=== PATIENT | male | born 1935 | race Caucasian/White ===

== ENCOUNTER → 2016-12-30 | Outpatient (CLI) | payer OTHER, MEDICARE ==
[~2016-12-30] MED LIST: ALBU1AER9 INH; CITA20TA9 PO; NRN/300 PO; SNM/25100 PO; TIMO0.2528 OPB; muscle relaxer PO
[2016-12-30 10:10] LABS: BASO % 0.5 %; BASO ABS # 0.03 K/uL (0-0.2); COMPLETE YES; EOS % 4.4 %; HEMATOCRIT 43.2 % (42-52); IG% 0.3 %; LYMPH ABS # 1.65 K/uL (1.2-3.4); MEAN CELL VOLUME 100.5 fL (80-100); MEAN CORPUSCULAR HGB CONC 33.8 g/dl (32-36); MEAN PLATELET VOLUME 9.4 fL (7.4-10.4); MONO % 8.7 %; NEUT % 60.1 %; PLATELET COUNT 134 K/uL (130-400); WHITE BLOOD COUNT 6.34 K/uL (4.8-10.8)
[2016-12-30 10:42] LABS: ALT/SGPT 11 U/L (12-78); AST/SGOT 19 U/L (15-37); BLOOD UREA NITROGEN 10 mg/dl (7-18); CALCIUM 8.9 mg/dl (8.5-10.1); CARBON DIOXIDE 33 mmol/L (21-32); CHLORIDE 106 mmol/L (98-107); CREATININE 0.98 mg/dl (0.60-1.40); GLUCOSE 95 mg/dl (70-99); POTASSIUM 4.4 mmol/L (3.5-5.1); SODIUM 140 mmol/L (136-145)
[2016-12-30 10:52] LABS: ALKALINE PHOSPHATASE 109 U/L (45-117); THYROID STIMULATING HORMONE 0.943 uIu/ml (0.300-4.500)
== END | disposition home or self-care (01) ==
LOC: C.LAB 09:31
PROVIDERS: ATTEND Physician Assistant
DX: R42 Dizziness and giddiness (principal); R51 Headache; S09.90XA Unspecified injury of head, initial encounter; X58.XXXA Exposure to other specified factors, initial encounter

== ENCOUNTER → 2017-01-03 | Outpatient (CLI) | payer OTHER, MEDICARE ==
[~2017-01-03] MED LIST changes: +GADAVIST IV PRN
--- NOTE | 2017-01-03 17:46 | DIAGNOSTIC IMAGING REPORT ---
BRAIN COMBO CLINICAL HISTORY: 81 years-old Male presenting with dizziness, headache, recent fall 8 weeks ago, head trauma, Parkinson's disease. TECHNIQUE: Multisequence, multiplanar MR imaging of the brain was performed before and after the administration of intravenous contrast. IV contrast: 9 mL of Gadavist. COMPARISON: 01/09/2014. FINDINGS: Ventricular and sulcal prominence proportional to the degree of parenchymal volume loss, likely age-related. Periventricular and subcortical white matter T2/FLAIR hyperintensity, similar to prior exam and nonspecific but likely indicative of chronic small vessel ischemic change. 2 foci of T1 hypointensity along the right aspect of the corpus callosum likely old lacunar infarcts, one of which is new from prior. No abnormal enhancement. No mass effect or midline shift. No hemorrhage or acute territorial infarct. No extra-axial fluid collection. Absence of the right lens of the globe. Paranasal sinuses and mastoid air cells grossly clear. IMPRESSION: 1. No acute intracranial abnormality. No abnormal enhancement. 2. Chronic small vessel ischemic change. Old lacunar infarcts, one of which is new from prior. Electronically signed by: Wilbert Dean M.D. 01/03/2017 5:45 PM Dictated Date/Time: 01/03/2017 5:38 PM
== END | disposition home or self-care (01) ==
LOC: C.MRI 16:37
PROVIDERS: ATTEND Physician Assistant
DX: R42 Dizziness and giddiness (principal); R51 Headache; S09.90XA Unspecified injury of head, initial encounter; X58.XXXA Exposure to other specified factors, initial encounter; I67.82 Cerebral ischemia; Z86.73 Personal history of transient ischemic attack (TIA), and cerebral infarction without residual deficits

== ENCOUNTER → 2017-02-06 | Outpatient (CLI) | payer OTHER, MEDICARE ==
[~2017-02-06] MED LIST changes: -GADAVIST IV PRN
== END | disposition home or self-care (01) ==
LOC: C.LABSPEC 17:01
PROVIDERS: ATTEND Podiatrist Foot & Ankle Surgery
DX: L97.509 Non-pressure chronic ulcer of other part of unspecified foot with unspecified severity (principal)

== ENCOUNTER → 2017-12-28 | Outpatient (CLI) | payer OTHER, MEDICARE | END | disposition home or self-care (01) | LOC: C.LAB 06:58 | PROVIDERS: ATTEND Internal Medicine Hematology | DX: J84.10 Pulmonary fibrosis, unspecified (principal) ==

== ENCOUNTER 2021-03-26 12:32 | Inpatient (IN) ==
--- NOTE | 2021-03-26 15:48 | XRay Report ---
XR chest 1V portable HISTORY: 85 years-old Male SOB acute shortness of breath COMPARISON: Chest radiograph 02/26/2016 TECHNIQUE: Portable AP view of the chest FINDINGS: Cardiac silhouette is mildly enlarged. Calcified plaque of the thoracic aorta. Mild bilateral reticul ar nodular densities are new from prior. The lungs are hypoinflated. No pneumothorax, or large pleura l effusion. No lobar airspace consolidation. IMPRESSION: 1. Mild bilateral reticular nodular opacities are suggestive of an infectious or inflammatory pneumon itis. 2. Cardiomegaly with hypoinflation. ACT 112: Negative or not required by law. The above report was generated using voice recognition software. It may contain grammatical, syntax o r spelling errors. Electronically signed by: Albert So M.D. 03/26/2021 3:46 PM
[2021-03-26 16:01] LABS: Basophils # (auto) 0.02 K/uL (0-0.2); Basophils % (auto) 0.2 %; Eosinophils # (auto) 0.28 K/uL (0-0.5); Eosinophils % (auto) 3.3 %; Hematocrit (blood only) 40.3 % (42-52); Hemoglobin 13.6 g/dL (14.0-18.0); Immature Granulocytes # (auto) 0.05 K/uL (0.00-0.02); Immature Granulocytes % (auto) 0.6 %; Mean Corpuscular Hemoglobin 37.1 pg (25-34); Mean Corpuscular Hgb Conc 33.7 g/dL (32-36); Mean Corpuscular Volume 109.8 fL (80-100); Mean Platelet Volume 9.8 fL (7.4-10.4); Monocytes # (auto) 0.86 K/uL (0.11-0.59); Monocytes % (auto) 10.1 %; Neutrophils # (auto) 5.57 K/uL (1.4-6.5); Neutrophils % (auto) 65.8 %; Platelet Count 161 K/uL (130-400); RDW Standard Deviation 55.9 fL (36.4-46.3); Red Blood Count 3.67 M/uL (4.7-6.1); White Blood Count 8.48 K/uL (4.8-10.8)
[2021-03-26 16:20] LABS: Alanine Aminotransferase 7 U/L (12-78); Albumin Level 3.1 gm/dl (3.4-5.0); BUN Creatinine Ratio 13.8 (10-20); Blood Urea Nitrogen 13 mg/dl (7-18); Carbon Dioxide 29 mmol/L (21-32); Chloride 107 mmol/L (98-107); Creatinine Clr Calc Pharmacy 66.2 ml/min; Est GFR (African American) 82.6 ml/min; Est GFR (Non-African American) 71.3 ml/min; Glucose 120 mg/dl (70-99); Sodium 137 mmol/L (136-145)
[2021-03-26 16:22] LABS: Albumin Globulin Ratio 0.7 (0.9-2); Alkaline Phosphatase 80 U/L (45-117); Bilirubin,Total 0.6 mg/dl (0.2-1); Globulin 4.6 gm/dl (2.5-4.0); Total Protein 7.7 gm/dl (6.4-8.2); Troponin I < 0.015 ng/ml (0-0.045)
--- NOTE | 2021-03-26 16:23 | Electrocardiogram Report ---
Test Reason : Blood Pressure : / mmHG Vent. Rate : 074 BPM Atrial Rate : 074 BPM P-R Int : 152 ms QRS Dur : 082 ms QT Int : 414 ms P-R-T Axes : 041 -36 011 degrees QTc Int : 459 ms Poor data quality, interpretation may be adversely affected Normal sinus rhythm Left axis deviation Abnormal ECG When compared with ECG of 26-FEB-2016 07:45, T wave amplitude has decreased in Anterior leads Confirmed by Jovon Horner ([id number]) on 03/26/2021 4:23:21 PM Referred By: Confirmed By:Jovon Horner
[2021-03-26 16:35] LABS: Partial Thromboplastin Time 26.3 Seconds (21.0-31.0); Prothrombin Time 10.4 Seconds (9.0-12.0)
[2021-03-26] MEDS ORDERED: ALBUT/IPRATROP 3MG/0.5MG NEB 3 ML VIAL NEB STA (16:51)
[2021-03-26] MEDS ORDERED: methylPREDNISolone 125 MG/2 ML VIAL IV STA (16:51)
[2021-03-26 16:57] LABS: Potassium 3.6 mmol/L (3.5-5.1)
--- NOTE | 2021-03-26 17:00 | Emergency Department Note ---
Impression & Plan Dyspnea, Cough ED Provider Note INFORMANT: Patient and ED PROVIDER(S): Hans Lake MD CHIEF COMPLAINT: Dyspnea PLAN: Disposition: Admitted Condition: Good Outpatient prescription management: none Referral: None MEDICAL DECISION MAKING: Presented with different breathing and cough. He had flulike symptoms. Requesting isolation. Covid testing was performed. Chest x-ray concerning for pneumonitis. The patient had an ECG performed that showed no acute findings. The CBC showed a mild anemia but no leukocytosis. Remainder of his blood work was unremarkable including troponin and BNP. The patient was treated with a DuoNeb, supplemental oxygen and Solu-Medrol. He seemed to improve with this. He still had conversational dyspnea. The patient was maintaining his oxygen saturation with supplemental oxygen. He underwent CT imaging chest which revealed no evidence of thromboembolic disease. Pneumonitis noted. Consistent with a viral pattern however Covid testing was negative. Given the patient's symptoms further management in the hospital was felt to be operative. Consultation was made with patient hospital service. Patient was evaluated in the ER and admitted. Triage Nursing notes reviewed and agree them. Vital Signs: reviewed and remarkable for no significant abnormalities Differential diagnosis: COVID-19, reactive airway disease, pneumonia, pneumothorax, COPD, CHF, infections, cardiac ischemia, pulmonary embolism, musculoskeletal, gastrointestinal, as well as other pathologies. Diagnostics interpreted by me: EC Lead ECG performe 7 d and revealed Normal sinus rhythym at 74, normal [place], QRS normal. No elevation or depression. No PACs or PVCs. Left axis deviation Cardiac Monitoring: Cardiac monitoring ordered by me: The patient was placed on continuous cardiac monitoring and observed. It revealed a normal sinus rhythm at 87 beats per minute without ectopy or evidence of dysrhythmia. Imaging studies: Chest x-ray concerning for pneumonitis. CT PE study negative no embolism but consistent with a viral pneumonia. I refer you to the EMR for further details. HPI: The patient is a 85 year old male who presents to the Emergency Room with c omplaints of dyspnea. This started 3 days ago and is worsening. Patient notes that he can only get a few words out before he feels very short of breath.. The patient also notes the following associated symptoms, night sweats, cough and fatigue, nausea and vomiting 2 days ago but none yesterday or today. The patient has found no relieving factors. Current pain is rated as 0/10. Patient has been fully vaccinated for Covid including a booster. No sick contacts. Pt denies LOC, headache, fevers, chills, visual changes, neck pain, chest pain, current abdominal pain, back pain, melena, hematochezia, urinary symptoms, numbness, weakness, lymphadenopathy, rash, or other complaints. ROS: See above HPI for pertinent positives & negatives. A total of 10 systems reviewed and were otherwise negative. PAST MEDICAL HISTORY:See Below , Parkinson's PAST SURGICAL HISTORY:See Below, FAMILY HISTORY:See Below SOCIAL HISTORY:See Below, HOME MEDICATIONS:See Below ALLERGIES:See Below VITALS:See Below PHYSICAL EXAMINATION: GENERAL: Awake, alert, dyspneic-appearing, in no distress HENT: Normocephalic, atraumatic. Oropharynx unremarkable. EYES: Normal conjunctiva. Sclera non-icteric. NECK: Inspection normal. Non-tender. Supple. No nuchal rigidity. FROM. No masses. RESPIRATORY: No wheezes. Scattered rales. Increased respiratory effort. CARDIAC: Normal rate. Normal rhythm. No murmurs. No rubs. Extremities warm and well perfused. Pulses equal. No JVD. GI: Soft, non-distended. No tenderness to palpation. No rebound or guarding. No masses. RECTAL: Deferred. MUSCULOSKELETAL: Atraumatic. Chest examination reveals no tenderness. The back is symmetrical on inspection without obvious abnormality. There is no CVA tenderness to palpation. No joint edema. LOWER EXTREMITIES: Calves are equal size bilaterally and non-tender. 1+ edema. Chronic venous discoloration. NEURO: Normal sensorium. No sensory or motor deficits noted. SKIN: No rash or jaundice noted. Hans Lake MD Past Med/Surg History Medical History (Updated 03/26/21 @ 17:00 by Hans Lake MD) Cervical facet joint syndrome Hard of hearing History of anesthesia reaction WAS SENT TO [facility] FOR 3 DAYS TO "RECOVER MY MIND ABILITIES TO HANDLE THINGS" - FOLLOWING BACK SURGERY/[facility] [place] ABOUT 7 YRS AGO History of kidney stones History of skin cancer AND REMOVED Lumbar canal stenosis Parkinson disease Surgical History History of back surgery History of hip replacement RIGHT AND LEFT History of lithotripsy History of total left knee replacement History of total right knee replacement Family History Unknown Cancer Father Prostate cancer Mother No problems noted. Social History Smoking Status: Never smoker Hx Alcohol Use: No Hx Substance Use: No Preferred Language: Slovak Communication Ability: Effective Furniture Painter Required: No Beliefs That Will Affect Care: Adventist Adventist Beliefs: SAMARITAN / METHO DIST marital status: Current Living Situation: Spouse Feels Safe at Home: Yes Assistive Devices: Cane, Denture - Upper and Hearing Aid - Bilateral Allergies Allergies Allergy/AdvReac Type Severity Reaction Status Date / Time bacitracin Allergy Unknown SWELLING Verified 03/26/21 17:08 fentanyl Allergy Unknown PASSED OUT Verified 03/26/21 17:08 neomycin Allergy Unknown SWELLING Verified 03/26/21 17:08 polymyxin B Allergy Unknown SWELLING Verified 03/26/21 17:08 Home Meds Home Medications Medication Instructions Recorded Confirmed gabapentin 300 mg capsule 300 mg PO HS 03/26/21 03/26/21 Previous Rx's Medication Instructions Recorded baclofen 10 mg tablet 10 mg PO BID PRN #60 tab 12/14/20 carbidopa ER 50 mg-levodopa 200 mg 1 tab PO TID #90 tab 01/25/21 tablet,extended release citalopram 10 mg tablet 10 mg PO HS #90 tab 01/26/21 entacapone 200 mg tablet (Comtan) 200 mg PO TID #270 tab 01/26/21 pramipexole 0.125 mg tablet 0.125 mg PO TID #270 tab 01/26/21 Results & Data (ED) Vital Signs Vital Signs - 24 hr 03/26/21 16:05 03/26/21 16:07 03/26/21 16:08 Pulse Rate 77 Pulse Rate [Apical] 78 Pulse Rate from SpO2 Sensor 77 Pulse Rhythm Pulse Rhythm [Apical] Regular Pulse Strength [Apical] Normal Respiratory Rate 36 H 30 H Respiratory Effort / Characteristics Non-Labored Spontaneous Labored Short of Breath Respiratory Depth Shallow Respiratory Pattern Tachypnea Blood Pressure [Right Arm] 140/91 Blood Pressure Mean [Right Arm] 107 Blood Pressure Position [Right Arm] Semi-fowlers Pulse Oximetry 100 100 99 Oxygen Delivery Method Nasal Cannula Nasal Cannula Nasal Cannula Oxygen Flow Rate 3 3 3 03/26/21 16:11 03/26/21 16:30 03/26/21 17:00 Pulse Rate 75 73 72 Pulse Rate [Apical] Pulse Rate from SpO2 Sensor 72 72 Pulse Rhythm Regular Pulse Rhythm [Apical] Pulse Strength [Apical] Respiratory Rate 30 H 27 H 30 H Respiratory Effort / Characteristics Respiratory Depth Respiratory Pattern Blood Pressure [Right Arm] Blood Pressure Mean [Right Arm] Blood Pressure Position [Right Arm] Pulse Oximetry 100 100 100 Oxygen Delivery Method Nasal Cannula Oxygen Flow Rate 3 03/26/21 17:16 03/26/21 17:30 03/26/21 18:00 Pulse Rate 70 77 Pulse Rate [Apical] 73 Pulse Rate from SpO2 Sensor 70 77 Pulse Rhythm Pulse Rhythm [Apical] Pulse Strength [Apical] Respiratory Rate 32 H 23 28 H Respiratory Effort / Characteristics Non-Labored Spontaneous Respiratory Depth Respiratory Pattern Blood Pressure [Right Arm] Blood Pressure Mean [Right Arm] Blood Pressure Position [Right Arm] Pulse Oximetry 100 100 98 Oxygen Delivery Method Nasal Cannula Oxygen Flow Rate 3 03/26/21 18:30 03/26/21 19:00 03/26/21 19:30 Pulse Rate 75 74 89 Pulse Rate [Apical] Pulse Rate from SpO2 Sensor 75 74 90 Pulse Rhythm Pulse Rhythm [Apical] Pulse Strength [Apical] Respiratory Rate 24 26 H 30 H Respiratory Effort / Characteristics Respiratory Depth Respiratory Pattern Blood Pressure [Right Arm] Blood Pressure Mean [Right Arm] Blood Pressure Position [Right Arm] Pulse Oximetry 100 100 99 Oxygen Delivery Method Oxygen Flow Rate 03/26/21 20:00 03/26/21 20:30 03/26/21 21:00 Pulse Rate 86 81 82 Pulse Rate [Apical] Pulse Rate from SpO2 Sensor 86 82 82 Pulse Rhythm Pulse Rhythm [Apical] Pulse Strength [Apical] Respiratory Rate 25 H 23 19 Respiratory Effort / Characteristics Respiratory Depth Respiratory Pattern Blood Pressure [Right Arm] Blood Pressure Mean [Right Arm] Blood Pressure Position [Right Arm] Pulse Oximetry 99 100 98 Oxygen Delivery Method Oxygen Flow Rate 03/26/21 21:30 03/26/21 22:00 03/26/21 22:07 Pulse Rate 80 80 Pulse Rate [Apical] Pulse Rate from SpO2 Sensor 78 80 Pulse Rhythm Pulse Rhythm [Apical] Pulse Strength [Apical] Respiratory Rate 22 23 Respiratory Effort / Characteristics Respiratory Depth Respiratory Pattern Blood Pressure [Right Arm] 166/97 H Blood Pressure Mean [Right Arm] 120 Blood Pressure Position [Right Arm] Pulse Oximetry 99 99 Oxygen Delivery Method Oxygen Flow Rate Laboratory Data Result diagrams: 03/27/21 06:41 03/27/21 06:41 Lab Results 03/26/21 03/26/21 03/26/21 Range/Units 15:30 15:30 16:10 WBC 8.48 (4.8-10.8) K/uL RBC 3.67 L (4.7-6.1) M/uL Hgb 13.6 L (14.0-18.0) g/dL Hct 40.3 L (42-52) % MCV 109.8 H (80-100) fL MCH 37.1 H (25-34) pg MCHC 33.7 (32-36) g/dL RDW Std Deviation 55.9 H (36.4-46.3) fL RDW Coeff of [place] 14.0 (11.5-14.5) % Plt Count 161 (130-400) K/uL MPV 9.8 (7.4-10.4) fL Immature Gran % (Auto) 0.6 % Neut % (Auto) 65.8 % Lymph % (Auto) 20.0 % [place] % (Auto) 10.1 % Eos % (Auto) 3.3 % Baso % (Auto) 0.2 % Neut # (Auto) 5.57 (1.4-6.5) K/uL Lymph # (Auto) 1.70 (1.2-3.4) K/uL [place] # (Auto) 0.86 H (0.11-0.59) K/uL Eos # (Auto) 0.28 (0-0.5) K/uL Baso # (Auto) 0.02 (0-0.2) K/uL Immature Gran # (Auto) 0.05 H (0.00-0.02) K/uL PT 10.4 (9.0-12.0) Seconds INR 1.0 (0.9-1.1) APTT 26.3 (21.0-31.0) Seconds PTT Ratio 1.0 Sodium 137 (136-145) mmol/L Potassium (3.5-5.1) mmol/L Chloride 107 (98-107) mmol/L Carbon Dioxide 29 (21-32) mmol/L Anion Gap 1.0 L (3-11) BUN 13 (7-18) mg/dl Creatinine 0.96 (0.6-1.4) mg/dl Est Cr Clr Drug Dosing 66.2 ml/min Est GFR ( Amer) 82.6 ml/min Est GFR (Non-Af Amer) 71.3 ml/min BUN/Creatinine Ratio 13.8 (10-20) Glucose 120 H (70-99) mg/dl Calcium 9.0 (8.5-10.1) mg/dl Magnesium (1.8-2.4) mg/dl Total Bilirubin 0.6 (0.2-1) mg/dl AST (15-37) U/L ALT 7 L (12-78) U/L Alkaline Phosphatase 80 (45-117) U/L Troponin I < 0.015 (0-0.045) ng/ml NT-Pro-B Natriuret Pep (0-1800) pg/ml Total Protein 7.7 (6.4-8.2) gm/dl Albumin 3.1 L (3.4-5.0) gm/dl Globulin 4.6 H (2.5-4.0) gm/dl Albumin/Globulin Ratio 0.7 L (0.9-2) COVID-19 Eval Order SARS-CoV-2 (PCR) (Negative) 03/26/21 03/26/21 03/26/21 Range/Units 16:10 16:57 16:57 WBC (4.8-10.8) K/uL RBC (4.7-6.1) M/uL Hgb (14.0-18.0) g/dL Hct (42-52) % MCV (80-100) fL MCH (25-34) pg MCHC (32-36) g/dL RDW Std Deviation (36.4-46.3) fL RDW Coeff of [place] (11.5-14.5) % Plt Count (130-400) K/uL MPV (7.4-10.4) fL Immature Gran % (Auto) % Neut % (Auto) % Lymph % (Auto) % [place] % (Auto) % Eos % (Auto) % Baso % (Auto) % Neut # (Auto) (1.4-6.5) K/uL Lymph # (Auto) (1.2-3.4) K/uL [place] # (Auto) (0.11-0.59) K/uL Eos # (Auto) (0-0.5) K/uL Baso # (Auto) (0-0.2) K/uL Immature Gran # (Auto) (0.00-0.02) K/uL PT (9.0-12.0) Seconds INR (0.9-1.1) APTT (21.0-31.0) Seconds PTT Ratio Sodium (136-145) mmol/L Potassium 3.6 (3.5-5.1) mmol/L Chloride (98-107) mmol/L Carbon Dioxide (21-32) mmol/L Anion Gap (3-11) BUN (7-18) mg/dl Creatinine (0.6-1.4) mg/dl Est Cr Clr Drug Dosing ml/min Est GFR ( Amer) ml/min Est GFR (Non-Af Amer) ml/min BUN/Creatinine Ratio (10-20) Glucose (70-99) mg/dl Calcium (8.5-10.1) mg/dl Magnesium 2.2 (1.8-2.4) mg/dl Total Bilirubin (0.2-1) mg/dl AST 11 L (15-37) U/L ALT (12-78) U/L Alkaline Phosphatase (45-117) U/L Troponin I (0-0.045) ng/ml NT-Pro-B Natriuret Pep 358 (0-1800) pg/ml Total Protein (6.4-8.2) gm/dl Albumin (3.4-5.0) gm/dl Globulin (2.5-4.0) gm/dl Albumin/Globulin Ratio (0.9-2) COVID-19 Eval Order Covid19 at [facility] SARS-CoV-2 (PCR) NEGATIVE (Negative) Administered Medications Carbidopa/Levodopa (Carbidopa/Levodopa 50/200mg Ext Rel Tab) 1 tab PO TID CARLEE Stop: 04/26/21 08:59 Last Admin: 03/27/21 09:46 Dose: 1 tab Documented by: [id number] Doxycycline Hyclate (Doxycycline Hyclate 100 Mg Cap) 100 mg PO BID CARLEE Stop: 04/03/21 01:16 Last Admin: 03/27/21 09:46 Dose: 100 mg Documented by: [id number] Admin: 03/27/21 02:10 Dose: 100 mg Documented by: [id number] Enoxaparin Sodium (Enoxaparin Inj 40 Mg/0.4 Ml Syr) 40 mg SQ Q24H CARLEE Stop: 04/26/21 08:59 Last Admin: 03/27/21 09:46 Dose: 40 mg Documented by: [id number] Entacapone (Entacapone 200 Mg Tab) 200 mg PO TID CARLEE Stop: 04/26/21 08:59 Last Admin: 03/27/21 09:47 Dose: 200 mg Documented by: [id number] Guaifenesin (Guaifenesin 600 Mg Tabcr) 600 mg PO Q12 CARLEE Stop: 04/26/21 08:59 Last Admin: 03/27/21 10:09 Dose: 600 mg Documented by: [id number] Sodium Chloride (Nss 1000ml) 1,000 mls @ 80 mls/hr IV .[id number] CARLEE Stop: 03/27/21 13:46 Last Admin: 03/27/21 02:31 Dose: 80 mls/hr Documented by: [id number] Methylprednisolone 40 mg/ (Syringe) 0.64 mls @ 1.5 mls/min IV DAILY CARLEE Stop: 04/26/21 08:59 Last Admin: 03/27/21 09:46 Dose: 1.5 mls/min Documented by: [id number] Ipratropium Nimitz (Ipratropium Nimitz Neb Soln 0.02% 2.5 Ml Vial) 0.5 mg INH Q6R CARLEE Stop: 04/26/21 01:16 Last Admin: 03/27/21 12:47 Dose: 0.5 mg Documented by: [id number] Admin: 03/27/21 07:22 Dose: 0.5 mg Documented by: [id number] Admin: 03/27/21 02:02 Dose: 0.5 mg Documented by: [id number] Levalbuterol HCl (Levalbuterol 1.25mg/0.5ml Neb) 1.25 mg INH Q6R CARLEE Stop: 04/26/21 01:16 Last Admin: 03/27/21 12:48 Dose: 1.25 mg Documented by: [id number] Admin: 03/27/21 07:22 Dose: 1.25 mg Documented by: [id number] Admin: 03/27/21 02:02 Dose: 1.25 mg Documented by: [id number] Pramipexole Dihydrochloride (Pramipexole Dihydrochlo 0.25 Mg Tab) 0.125 mg PO TID CARLEE Stop: 04/26/21 08:59 Last Admin: 03/27/21 09:47 Dose: 0.125 mg Documented by: [id number] Discontinued Medications Albuterol (Albut/Ipratrop 3mg/0.5mg Neb 3 Ml Vial) 3 ml NEB NOW STA Stop: 03/26/21 16:52 Last Admin: 03/26/21 17:14 Dose: 3 ml Documented by: [id number] Ioversol (Optiray 320 125ml) 113 ml IV ONCE ONE Stop: 03/26/21 19:23 Last Admin: 03/26/21 19:23 Dose: 113 ml Documented by: [id number] Methylprednisolone (Methylprednisolone 125 Mg/2 Ml Vial) 125 mg IV NOW STA Stop: 03/26/21 16:52 Last Admin: 03/26/21 17:01 Dose: 125 mg Documented by: [id number] Imaging Data Radiologist's Impression: Chest X-Ray 03/26/21 12:41 XR chest 1V portable HISTORY: 85 years-old Male SOB acute shortness of breath COMPARISON: Chest radiograph 02/26/2016 TECHNIQUE: Portable AP view of the chest FINDINGS: Cardiac silhouette is mildly enlarged. Calcified plaque of the thoracic aorta. Mild bilateral reticular nodular densities are new from prior. The lungs are hypoinflated. No pneumothorax, or large pleural effusion. No lobar airspace consolidation. IMPRESSION: 1. Mild bilateral reticular nodular opacities are suggestive of an infectious or inflammatory pneumonitis. 2. Cardiomegaly with hypoinflation. ACT 112: Negative or not required by law. The above report was generated using voice recognition software. It may contain grammatical, syntax or spelling errors. Electronically signed by: Albert So M.D. 03/26/2021 3:46 PM Discharge Plan Visit Data Chief Complaint: Respiratory Problems Stated Complaint: RESP ISSUES, REF'D BY P ED Provider: Hans Lake Discharge Problem: Dyspnea, Cough Patient Disposition: Admitted As Inpatient Discharge Instructions Interventions: ED Discharge Assessment Last Done: 03/27/21 01:07
[2021-03-26 17:02] LABS: Magnesium 2.2 mg/dl (1.8-2.4)
[2021-03-26] MEDS ORDERED: OPTIRAY 320 125ml IV ONE (19:22)
--- NOTE | 2021-03-26 19:55 | CT Scan Report ---
CT ANGIOGRAPHY OF THE CHEST, PULMONARY EMBOLUS PROTOCOL CLINICAL HISTORY: Dyspnea. Atypical chest pain. Weakness. COMPARISON STUDY: Chest radiograph performed earlier today. TECHNIQUE: Following IV administration of 113 mL of Optiray, helical axial images of the chest were o btained utilizing the pulmonary embolus protocol. Maximal intensity projections and sagittal and cor onal reformats were viewed on an independent 3D workstation. IV contrast was administered without co mplication. Automated exposure control was utilized for the study. A dose lowering technique was ut ilized adhering to the principles of ALARA. CT DOSE: 684.73 mGy.cm FINDINGS: No pulmonary emboli are identified although this exam is significantly compromised by resp iratory motion. The segmental and subsegmental pulmonary arteries are suboptimally assessed on this s tudy. Cardiomegaly is noted. There is no pericardial effusion. Moderate coronary artery calcification is present. Prominent mediastinal and bilateral hilar lymph nodes are noted. These may be reactive. There are several partially calcified lymph nodes. Lungs are suboptimally assessed due to respiratory motion. Moderate groundglass opacities within the lungs are noted. Note is made of a nodular 9 mm op acity within the superior segment of the left lower lobe on image 118 of 238. This favors airspace di sease. No pneumothorax or pleural effusion is noted. Visualized portions of the upper abdomen are unr emarkable. IMPRESSION: 1. No pulmonary emboli identified although exam significantly compromised by respiratory motion and s uboptimal evaluation of the segmental and subsegmental pulmonary arteries. 2. Ground glass opacities throughout the lungs which favor viral pneumonia. 9 mm nodular opacity with in the left lower lobe favors airspace disease however a chest CT in 3 months to ensure resolution is recommended to exclude the possibility of a pulmonary nodule. 3. Cardiomegaly and moderate coronary artery calcification. ACT 112: Negative or not required by law. Electronically signed by: Rodrigo Laguna M.D. 03/26/2021 7:53 PM
--- NOTE | 2021-03-27 00:52 | History and Physical Report ---
DATE OF ADMISSION: 03/26/2021. CHIEF COMPLAINT: Cough and shortness of breath. HISTORY OF PRESENT ILLNESS: This is an 85-year-old male with past medical history significant for chronic interstitial lung disease, seasonal allergic rhinitis, atherosclerosis of both carotid arteries, history of cerebral microvascular disease, diverticulosis of colon, general osteoarthrosis, degenerative disk disease, Parkinson disease, neuropathy, thrombocytopenia, low serum vitamin B12, macrocytic anemia, anxiety, history of kidney stones, history of bilateral hip replacement, history of lumbar laminectomy, who lives at home with his , presents with cough and fever at home. Patient is vaccinated for COVID. He also had a booster shot also. For the last 3-4 days, he is having cough and fever and sweating and some headache and one episode of nausea and because of ongoing symptoms, he came to the ER and since when he came in, he was not hypoxic, but he was tachypneic and with placement of oxygen he says his headache improved. His labs are okay. ER did a CT of the chest shows no PE, but ground glass opacities in the lungs, possible viral pneumonia .Patient also seemed to have low-grade interstitial lung disease. Currently, resting comfortably and hemodynamically stable. Currently, denies any headache. No blurred vision. He had sore throat couple of days ago that has resolved. He says his appetite is okay. He has had lot of chest pain when he came in, the pain was more with deep breath but that is resolved now. Currently, no abdominal pain. He moved his bowels in the morning, which was normal. Normal bladder movements. No swelling in the legs. Ambulates with a walker. ALLERGIES: BACITRACIN, FENTANYL, NEOMYCIN, POLYMYXIN B. PAST MEDICAL HISTORY: As mentioned above. PAST SURGICAL HISTORY: Bilateral knee arthroplasties, colonoscopy, cervical hemilaminectomy, appendectomy, cataract surgery, bilateral hip replacement. MEDICATIONS: The patient is on baclofen 10 mg p.o. b.i.d. p.r.n., carbidopa/levodopa 1 tablet p.o. t.i.d., escitalopram 10 mg p.o. at bedtime, entacapone 200 mg p.o. t.i.d., gabapentin 300 mg p.o. at bedtime, pramipexole 0.5 mg p.o. t.i.d. FAMILY HISTORY: Significant for father had prostate cancer. SOCIAL HISTORY: , no smoking. Alcohol occasional. No drug use. REVIEW OF SYSTEMS: As per HPI. Rest of the review of systems is negative. PHYSICAL EXAMINATION: GENERAL: The patient is old and frail, not in acute distress. VITAL SIGNS: Temperature 37.1, pulse 80, respiratory rate 23, blood pressure 166/97, oxygen 99% on 3 liters. HEENT: Pupils equal, round and reactive to light. Oral mucosa moist. NECK: No JVD, no neck masses. CARDIOVASCULAR: S1 and S2 heard. Regular rate and rhythm. No murmur, no gallop. RESPIRATORY SYSTEM: Normal AP diameter. No accessory muscle use. Mild bibasilar crackles. No wheezing. ABDOMEN: Soft, bowel sounds present, nontender, no distention. CENTRAL NERVOUS SYSTEM: Cranial nerves II-XII grossly intact, nonfocal. EXTREMITIES: No edema, no erythema. LABORATORY DATA: WBC 8.4, hemoglobin 13.6, hematocrit 40.3, platelets 161. PT 10.4, INR 1, APTT 26.3. Sodium 137, potassium 3.6, chloride 107, bicarbonate 29, BUN 13, creatinine 0.9, serum glucose 120, calcium 9, magnesium 2.2, total bilirubin 0.6, AST 11, ALT 7, alkaline phosphatase 80. Troponin I less than 0.015. BNP 355. SARS-CoV-2 PCR negative. CHEST X-RAY: Mild bilateral reticulonodular opacities suggestive of infectious inflammatory pneumonitis. CT of the chest, no PE, but showed extensive ground glass opacities of lungs possible viral pneumonia. A 9 mm nodular opacity in the left lower lobe favors air space disease. We will have chest CT in three months to ensure resolution is recommended to exclude the possibility of pulmonary nodule, cardiomegaly. EKG: Normal sinus rhythm, rate of 74, left axis deviation. ASSESSMENT AND PLAN: This is an 85-year-old male, presents with ongoing respiratory illness. 1. Respiratory illness with cough, fever and soaking sweats. When he came in, he was tachypneic, with oxygen headache and tachypnea improved, currently resting comfortably. CTA of chest round glass opacities, possible viral pneumonia. COVID test is negative and he has completed vaccination with a booster shot. We also will check for RSV and flu. The patient also has underlying interstitial lung disease. We will continue steroids and nebs and p.o. doxycycline and monitor. Monitor the response. two step prior to discharge. May need to follow with Pulmonary.Needs repeat ct chest in 3 months to rule out underlying lung nodule. 2. Parkinson's. Continue his home medications of carbidopa/levodopa and entacapone. 3. Depression: Continue citalopram. 4. Deep venous thrombosis prophylaxis: Lovenox. DISPOSITION: Closely monitor in the med tele. PT/OT prior to discharge. Social service to help with discharge planning. Job ID: [id number] [facility]
[2021-03-27] MEDS ORDERED: ACETAMINOPHEN 325 MG TAB PO PRN (01:17)
[2021-03-27] MEDS ORDERED: SODIUM CHLORIDE 0.9% 1000ML 1,000 ML IV SCH (01:17)
[2021-03-27] MEDS ORDERED: XOPENEX/ATROVENT 1.25mg/0.5MG NEB COMBO NEB SCH (01:17)
[2021-03-27] MEDS ORDERED: ONDANSETRON INJ 2 MG/ML 2 ML VIAL IV PRN (01:17)
[2021-03-27] MEDS ORDERED: NITROGLYCERIN SL 0.4 MG/TAB TAB SL PRN (01:17)
[2021-03-27] MEDS ORDERED: BACLOFEN 10 MG TAB PO PRN (01:17)
[2021-03-27] MEDS: LEVALBUTEROL 1.25MG/0.5ML NEB INH SCH ×4 (02:02→19:58)
[2021-03-27] MEDS: IPRATROPIUM BROMIDE NEB SOLN 0.02% 2.5 ML VIAL INH SCH ×4 (02:02→19:58)
[2021-03-27] MEDS: DOXYCYCLINE HYCLATE 100 MG CAP PO SCH ×3 (02:10→21:13)
[2021-03-27 03:26] LABS: Influenza A virus by PCR Negative (Negative); Influenza B virus by PCR Negative (Negative)
[2021-03-27 03:44] LABS: RSV by PCR Negative (Negative)
--- NOTE | 2021-03-27 07:06 | Hospitalist Progress Note ---
Date of Service March 27, 2021 Assessment & Plan (1) Respiratory failure with hypoxia: (2) Elevated troponin: Plan: This is an 85-year-old male, presents with ongoing respiratory illness. 1. Acute respiratory failure with hypoxia Respiratory illness with cough, fever and soaking sweats. When he came in, he was tachypneic, with oxygen headache and tachypnea improved, currently resting comfortably. He also had significant chest pain before started on oxygen. Currently resting comfortably, using 2 L of nasal cannula. CTA of chest ground glass opacities, possible viral pneumonia. No PE. COVID test is negative and he has completed vaccination with a booster shot. RSV and flu - negative Will obtain Biofire, Legionella, Mycoplasma The patient also has underlying interstitial lung disease. We will continue steroids and nebs and p.o. doxycycline and monitor. Monitor the response. two step prior to discharge. Pulmonary medicine also consulted Needs repeat ct chest in 3 months to rule out underlying lung nodule. 2. Elevated troponin Initial troponin negative in ED Currently chest pain-free, reports chest pain ceased after he got oxygen in ED Repeat troponin this morning elevated Likely demand ischemia secondary to above Echo ordered, and cardiology was consulted 2. Parkinson's. Continue his home medications of carbidopa/levodopa and entacapone. 3. Depression: Continue citalopram. DVT prophylaxis: Lovenox. DISPOSITION: Closely monitor in the med tele. Admission and Anticipated Discharge Date Admission Date: March 27, 2021 Subjective Patient seen in follow-up of shortness of breath, chest pain Currently resting in bed, in no acute distress, on 2 liters of nasal cannula Chest pain has resolved Currently does not feel short of breath No fevers chills, abdominal pain, nausea vomiting Patient does not feel dizzy or lightheaded at this time Review of Systems Review of Systems: All systems reviewed & are unremarkable except as noted in Subjective Physical Exam Physical Exam: GENERAL: elderly frail male, not in acute distress, on 2 L NC HEENT: NC/AT, EOMI, PERRL NECK: No JVD, no neck masses. CARDIOVASCULAR: S1 and S2 heard. Regular rate and rhythm. No murmur, no gallop. RESPIRATORY: No accessory muscle use. Mild bibasilar crackles. No wheezing. Using 2L via NC ABDOMEN: Soft, bowel sounds present, nontender, no distention. NEURO: Alert oriented, answering questions appropriately, no facial asymmetry, speech fluent, moves extremities EXTREMITIES: No edema, no erythema. Results & Data Results & Data ([facility]) Vital Signs (Past 12 Hours) Vital Signs Temp Pulse Pulse Resp BP BP Pulse Ox 03/27/21 04:25 83 24 148/93 H 95 03/27/21 02:25 171/97 H 03/27/21 02:03 85 18 94 03/27/21 01:50 36.4 C L 83 20 138/81 98 03/27/21 01:07 85 16 131/82 92 03/26/21 22:07 166/97 H 03/26/21 22:00 80 23 99 03/26/21 21:30 80 22 99 03/26/21 21:00 82 19 98 03/26/21 20:30 81 23 100 03/26/21 20:00 86 25 H 99 03/26/21 19:30 89 30 H 99 Laboratory Results 03/27/21 03/26/21 03/26/21 Range/Units 02:55 16:57 16:57 WBC (4.8-10.8) K/uL RBC (4.7-6.1) M/uL Hgb (14.0-18.0) g/dL Hct (42-52) % MCV (80-100) fL MCH (25-34) pg MCHC (32-36) g/dL RDW Std Deviation (36.4-46.3) fL RDW Coeff of Clitfon (11.5-14.5) % Plt Count (130-400) K/uL MPV (7.4-10.4) fL Immature Gran % (Auto) % Neut % (Auto) % Lymph % (Auto) % Hale % (Auto) % Eos % (Auto) % Baso % (Auto) % Neut # (Auto) (1.4-6.5) K/uL Lymph # (Auto) (1.2-3.4) K/uL Hale # (Auto) (0.11-0.59) K/uL Eos # (Auto) (0-0.5) K/uL Baso # (Auto) (0-0.2) K/uL Immature Gran # (Auto) (0.00-0.02) K/uL PT (9.0-12.0) Seconds INR (0.9-1.1) APTT (21.0-31.0) Seconds PTT Ratio Sodium (136-145) mmol/L Potassium (3.5-5.1) mmol/L Chloride (98-107) mmol/L Carbon Dioxide (21-32) mmol/L Anion Gap (3-11) BUN (7-18) mg/dl Creatinine (0.6-1.4) mg/dl Est Cr Clr Drug Dosing ml/min Est GFR ( Amer) ml/min Est GFR (Non-Af Amer) ml/min BUN/Creatinine Ratio (10-20) Glucose (70-99) mg/dl Calcium (8.5-10.1) mg/dl Magnesium (1.8-2.4) mg/dl Total Bilirubin (0.2-1) mg/dl AST (15-37) U/L ALT (12-78) U/L Alkaline Phosphatase (45-117) U/L Troponin I (0-0.045) ng/ml NT-Pro-B Natriuret Pep (0-1800) pg/ml Total Protein (6.4-8.2) gm/dl Albumin (3.4-5.0) gm/dl Globulin (2.5-4.0) gm/dl Albumin/Globulin Ratio (0.9-2) COVID-19 Eval Order Covid19 at [facility] SARS-CoV-2 (PCR) NEGATIVE (Negative) Influ A Molecular Assay Negative (Negative) Influ B Molecular Assay Negative (Negative) RSV (Molecular) Negative (Negative) 03/26/21 03/26/21 03/26/21 Range/Units 16:10 16:10 15:30 WBC (4.8-10.8) K/uL RBC (4.7-6.1) M/uL Hgb (14.0-18.0) g/dL Hct (42-52) % MCV (80-100) fL MCH (25-34) pg MCHC (32-36) g/dL RDW Std Deviation (36.4-46.3) fL RDW Coeff of Clifton (11.5-14.5) % Plt Count (130-400) K/uL MPV (7.4-10.4) fL Immature Gran % (Auto) % Neut % (Auto) % Lymph % (Auto) % Hale % (Auto) % Eos % (Auto) % Baso % (Auto) % Neut # (Auto) (1.4-6.5) K/uL Lymph # (Auto) (1.2-3.4) K/uL Hale # (Auto) (0.11-0.59) K/uL Eos # (Auto) (0-0.5) K/uL Baso # (Auto) (0-0.2) K/uL Immature Gran # (Auto) (0.00-0.02) K/uL PT 10.4 (9.0-12.0) Seconds INR 1.0 (0.9-1.1) APTT 26.3 (21.0-31.0) Seconds PTT Ratio 1.0 Sodium 137 (136-145) mmol/L Potassium 3.6 (3.5-5.1) mmol/L Chloride 107 (98-107) mmol/L Carbon Dioxide 29 (21-32) mmol/L Anion Gap 1.0 L (3-11) BUN 13 (7-18) mg/dl Creatinine 0.96 (0.6-1.4) mg/dl Est Cr Clr Drug Dosing 66.2 ml/min Est GFR ( Amer) 82.6 ml/min Est GFR (Non-Af Amer) 71.3 ml/min BUN/Creatinine Ratio 13.8 (10-20) Glucose 120 H (70-99) mg/dl Calcium 9.0 (8.5-10.1) mg/dl Magnesium 2.2 (1.8-2.4) mg/dl Total Bilirubin 0.6 (0.2-1) mg/dl AST 11 L (15-37) U/L ALT 7 L (12-78) U/L Alkaline Phosphatase 80 (45-117) U/L Troponin I < 0.015 (0-0.045) ng/ml NT-Pro-B Natriuret Pep 358 (0-1800) pg/ml Total Protein 7.7 (6.4-8.2) gm/dl Albumin 3.1 L (3.4-5.0) gm/dl Globulin 4.6 H (2.5-4.0) gm/dl Albumin/Globulin Ratio 0.7 L (0.9-2) COVID-19 Eval Order SARS-CoV-2 (PCR) (Negative) Influ A Molecular Assay (Negative) Influ B Molecular Assay (Negative) RSV (Molecular) (Negative) 03/26/21 Range/Units 15:30 WBC 8.48 (4.8-10.8) K/uL RBC 3.67 L (4.7-6.1) M/uL Hgb 13.6 L (14.0-18.0) g/dL Hct 40.3 L (42-52) % MCV 109.8 H (80-100) fL MCH 37.1 H (25-34) pg MCHC 33.7 (32-36) g/dL RDW Std Deviation 55.9 H (36.4-46.3) fL RDW Coeff of Clifton 14.0 (11.5-14.5) % Plt Count 161 (130-400) K/uL MPV 9.8 (7.4-10.4) fL Immature Gran % (Auto) 0.6 % Neut % (Auto) 65.8 % Lymph % (Auto) 20.0 % Hale % (Auto) 10.1 % Eos % (Auto) 3.3 % Baso % (Auto) 0.2 % Neut # (Auto) 5.57 (1.4-6.5) K/uL Lymph # (Auto) 1.70 (1.2-3.4) K/uL Hale # (Auto) 0.86 H (0.11-0.59) K/uL Eos # (Auto) 0.28 (0-0.5) K/uL Baso # (Auto) 0.02 (0-0.2) K/uL Immature Gran # (Auto) 0.05 H (0.00-0.02) K/uL PT (9.0-12.0) Seconds INR (0.9-1.1) APTT (21.0-31.0) Seconds PTT Ratio Sodium (136-145) mmol/L Potassium (3.5-5.1) mmol/L Chloride (98-107) mmol/L Carbon Dioxide (21-32) mmol/L Anion Gap (3-11) BUN (7-18) mg/dl Creatinine (0.6-1.4) mg/dl Est Cr Clr Drug Dosing ml/min Est GFR ( Amer) ml/min Est GFR (Non-Af Amer) ml/min BUN/Creatinine Ratio (10-20) Glucose (70-99) mg/dl Calcium (8.5-10.1) mg/dl Magnesium (1.8-2.4) mg/dl Total Bilirubin (0.2-1) mg/dl AST (15-37) U/L ALT (12-78) U/L Alkaline Phosphatase (45-117) U/L Troponin I (0-0.045) ng/ml NT-Pro-B Natriuret Pep (0-1800) pg/ml Total Protein (6.4-8.2) gm/dl Albumin (3.4-5.0) gm/dl Globulin (2.5-4.0) gm/dl Albumin/Globulin Ratio (0.9-2) COVID-19 Eval Order SARS-CoV-2 (PCR) (Negative) Influ A Molecular Assay (Negative) Influ B Molecular Assay (Negative) RSV (Molecular) (Negative) Medications Administered Current Inpatient Medications Acetaminophen (Acetaminophen 325 Mg Tab) 650 mg PO Q4H PRN PRN Reason: Pain or Fever Stop: 04/26/21 01:16 Baclofen (Baclofen 10 Mg Tab) 10 mg PO BID PRN PRN Reason: pain/spasm Stop: 04/26/21 01:16 Carbidopa/Levodopa (Carbidopa/Levodopa 50/200mg Ext Rel Tab) 1 tab PO TID CARLEE Stop: 04/26/21 08:59 Citalopram Hydrobromide (Citalopram 20 Mg Tab) 10 mg PO HS CARLEE Stop: 04/26/21 20:59 Doxycycline Hyclate (Doxycycline Hyclate 100 Mg Cap) 100 mg PO BID [facility]LEE Stop: 04/03/21 01:16 Last Admin: 03/27/21 02:10 Dose: 100 mg Documented by: Enoxaparin Sodium (Enoxaparin Inj 40 Mg/0.4 Ml Syr) 40 mg SQ Q24H [facility] Stop: 04/26/21 08:59 Entacapone (Entacapone 200 Mg Tab) 200 mg PO TID [facility]LEE Stop: 04/26/21 08:59 Gabapentin (Gabapentin 300 Mg Cap) 300 mg PO HS [facility] Stop: 04/26/21 20:59 Guaifenesin (Guaifenesin 600 Mg Tabcr) 600 mg PO Q12 [facility] Stop: 04/26/21 08:59 Sodium Chloride (Nss 1000ml) 1,000 mls @ 80 mls/hr IV .[id number] [facility] Stop: 03/27/21 13:46 Last Admin: 03/27/21 02:31 Dose: 80 mls/hr Documented by: Methylprednisolone 40 mg/ (Syringe) 0.64 mls @ 1.5 mls/min IV DAILY [facility] Stop: 04/26/21 08:59 Ipratropium [place] (Ipratropium [place] Neb Soln 0.02% 2.5 Ml Vial) 0.5 mg INH Q6R [facility] Stop: 04/26/21 01:16 Last Admin: 03/27/21 02:02 Dose: 0.5 mg Documented by: Levalbuterol HCl (Levalbuterol 1.25mg/0.5ml Neb) 1.25 mg INH Q6R [facility] Stop: 04/26/21 01:16 Last Admin: 03/27/21 02:02 Dose: 1.25 mg Documented by: Nitroglycerin (Nitroglycerin Sl 0.4 Mg/Tab Tab) 0.4 mg SL UD PRN PRN Reason: Chest Pain Stop: 04/26/21 01:16 Ondansetron HCl (Ondansetron Inj 2 Mg/Ml 2 Ml Vial) 4 mg IV Q6H PRN PRN Reason: Nausea Stop: 04/26/21 01:16 Pramipexole Dihydrochloride (Pramipexole Dihydrochlo 0.25 Mg Tab) 0.125 mg PO TID [facility] Stop: 04/26/21 08:59
[2021-03-27 07:45] LABS: BUN Creatinine Ratio 15.6 (10-20); Calcium 8.6 mg/dl (8.5-10.1); Creatinine Clr Calc Pharmacy 71.8 ml/min; Est GFR (African American) 90.1 ml/min; Est GFR (Non-African American) 77.8 ml/min; Magnesium 2.2 mg/dl (1.8-2.4); Potassium 4.3 mmol/L (3.5-5.1)
[2021-03-27 07:51] LABS: Basophils # (auto) 0.01 K/uL (0-0.2); Basophils % (auto) 0.2 %; Hemoglobin 12.2 g/dL (14.0-18.0); Immature Granulocytes # (auto) 0.02 K/uL (0.00-0.02); Immature Granulocytes % (auto) 0.4 %; Lymphocytes # (auto) 0.77 K/uL (1.2-3.4); Lymphocytes % (auto) 16.8 %; Mean Corpuscular Hemoglobin 36.4 pg (25-34); Mean Corpuscular Hgb Conc 33.9 g/dL (32-36); Mean Corpuscular Volume 107.5 fL (80-100); Mean Platelet Volume 10.2 fL (7.4-10.4); Monocytes # (auto) 0.28 K/uL (0.11-0.59); Monocytes % (auto) 6.1 %; Neutrophils # (auto) 3.51 K/uL (1.4-6.5); Neutrophils % (auto) 76.5 %; Platelet Count 139 K/uL (130-400); RDW Coefficient of Variation 13.7 % (11.5-14.5); RDW Standard Deviation 54.3 fL (36.4-46.3); Red Blood Count 3.35 M/uL (4.7-6.1); White Blood Count 4.59 K/uL (4.8-10.8)
[2021-03-27 07:52] LABS: Troponin I 0.758 ng/ml (0-0.045)
[2021-03-27] MEDS ORDERED: methylPREDNISolone 40 MG in SYRINGE 0 ML IV SCH (09:00)
[2021-03-27] MEDS: ENOXAPARIN INJ 40 MG/0.4 ML SYR SQ SCH (09:46)
[2021-03-27] MEDS: CARBIDOPA/LEVODOPA 50/200MG EXT REL TAB PO SCH ×3 (09:46→21:12)
[2021-03-27] MEDS: PRAMIPEXOLE DIHYDROCHLO 0.25 MG TAB PO SCH ×3 (09:47→21:07)
[2021-03-27] MEDS: ENTACAPONE 200 MG TAB PO SCH ×3 (09:47→21:13)
[2021-03-27] MEDS: guaiFENesin 600 MG TABCR PO SCH ×2 (10:09→21:14)
--- NOTE | 2021-03-27 13:53 | Pulmonary Consultation ---
Date of Consultation March 27, 2021 Assessment & Plan (1) Respiratory failure with hypoxia: (2) Dyspnea: (3) Cough: (4) Abnormal CT scan of lung: Impression: 85-year-old male with history of Parkinson's admitted with fevers chills and tachypnea. He was never hypoxemic but his CT scan did show diffuse groundglass opacities. The pattern is concerning for an infectious etiology. Review of his CT scan of the abdomen and pelvis done a while ago did demonstrate some subpleural reticulation and the patient may have some degree of chronic interstitial lung disease. Recommendations: 1. Abnormal CT scan: Patient has 2 processes. He has reticulation in the subpleural areas arguing for some chronic lung disease, most likely pulmonary fibrosis. He also has groundglass opacities in his current presentation, would be most concerned about an acute infectious etiology. Viral illnesses are possible however there is no specific treatment for them so I do not think conducting additional testing is required at this point time. Alternative etiologies including atypical pulmonary edema would be on the list especially given his elevated troponin. We will check a BNP in the morning and procalcitonin now. We will discontinue his Solu-Medrol and transition him to prednisone but I think this can likely be tapered. Intermittent aspiration would also be a potential consideration given his neurological disease. Serological evaluation will be initiated. Agree with cardiology consultation 2. Possible interstitial lung disease: Serological evaluation will be conducted. Plan on tapering to steroids as tolerated. 3. The patient should be assessed for supplemental oxygen prior to discharge. 4. Ultimately the patient will require clinical follow-up in the pulmonary clinic with pulmonary function tests and possible follow-up CT scan. 5. I do not think the patient is a candidate for surgical lung biopsy or bronchoscopy and BAL currently. If he improves, he can be discharged home and follow-up in the pulmonary clinic. The above recommendations and plan were discussed with the patient in detail. Questions were answered to the best of my ability. History of Present Illness Attending Physician: Darrell Shi MD History of Present Illness Asked by hospitalist to assist in evaluation management of this patient admitted with abnormal CT scan and hypoxemic respiratory failure. History is obtained from review the electronic medical record as well as discussion with the patient. Patient is an 85-year-old male with a history of Parkinson's. He does not report a prior history of lung disease but states he was having some dental work done a few weeks ago and his dental provider question whether or not he was on oxygen. He is a lifelong non-smoker. He reports a 3 to 4-day history of cough fever and headaches and presented to the emergency room. He was tachypneic but not hypoxemic and was placed on supplemental oxygen. CT scan showed diffuse groundglass opacities. Covid testing was negative as was influenza and RSV. The patient was initiated on antibiotics and treated empirically with steroids and pulmonary consultation was obtained. Patient reports a cough productive of some whitish phlegm. He is never had hemoptysis. He cannot recall having had PFTs or prior CT scanning of his chest performed previously and has never seen a physical damage appraiser. He is a lifelong non- smoker. He is retired. He worked in the [employer]. He has no significant exposures. No birds at home. He does not report any overt aspir ation symptoms. No family history of lung disease that he is aware of. He does not report chest pain or palpitations or significant lower extremity edema. Allergies Allergy/AdvReac Type Severity Reaction Status Date / Time bacitracin Allergy Unknown SWELLING Verified 03/26/21 17:08 fentanyl Allergy Unknown PASSED OUT Verified 03/26/21 17:08 neomycin Allergy Unknown SWELLING Verified 03/26/21 17:08 polymyxin B Allergy Unknown SWELLING Verified 03/26/21 17:08 Home Medications Medication Instructions Recorded Confirmed Type baclofen 10 mg tablet 10 mg PO BID PRN #60 tab 12/14/20 03/26/21 Rx carbidopa ER 50 mg-levodopa 200 mg 1 tab PO TID #90 tab 01/25/21 03/26/21 Rx tablet,extended release citalopram 10 mg tablet 10 mg PO HS #90 tab 01/26/21 03/26/21 Rx entacapone 200 mg tablet (Comtan) 200 mg PO TID #270 tab 01/26/21 03/26/21 Rx pramipexole 0.125 mg tablet 0.125 mg PO TID #270 tab 01/26/21 03/26/21 Rx gabapentin 300 mg capsule 300 mg PO HS 03/26/21 03/26/21 History Patient History Medical History (Updated 03/27/21 @ 13:53 by Chao Bragg MD) Cervical facet joint syndrome Hard of hearing History of anesthesia reaction WAS SENT TO [facility] FOR 3 DAYS TO "RECOVER MY MIND ABILITIES TO HANDLE THINGS" - FOLLOWING BACK SURGERY/DAFNE KUNZ ABOUT 7 YRS AGO History of kidney stones History of skin cancer AND REMOVED Lumbar canal stenosis Parkinson disease Surgical History History of back surgery History of hip replacement RIGHT AND LEFT History of lithotripsy History of total left knee replacement History of total right knee replacement Family History Unknown Cancer Father Prostate cancer Mother No problems noted. Social History Smoking Status: Never smoker Hx Alcohol Use: No Hx Substance Use: No Preferred Language: Uzbek Communication Ability: Effective Airline Pilot/First Officer Required: No Beliefs That Will Affect Care: Sikh Sikh Beliefs: ADVENTISM / MU-ISM marital status: Current Living Situation: Spouse Feels Safe at Home: Yes Assistive Devices: Cane, Denture - Upper and Hearing Aid - Bilateral Review of Systems Review of Systems: Please refer to admission H&P. No additions or deletions Physical Exam Constitutional: WD/WN, vitals as above Elderly male. He does appear slightly tachypneic with conversation but he states this is much better than yesterday Neck: trachea midline, no thyromegaly Respiratory: normal respiratory effort, lungs clear to auscultation Cardiovascular: RRR, no murmur, no edema Gastrointestinal (Abdomen): normal bowel sounds, soft, nontender, no hepatosplenomegaly Musculoskeletal: Extremities: extremities normal to inspection Skin: no rashes, warm and dry Neurologic: Nonfocal exam Lymphatic: no cervical lymphadenopathy Results & Data Results & Data ([facility]) Vital Signs (Past 12 Hours) Vital Signs Temp Pulse Resp BP Pulse Ox 03/27/21 12:49 87 20 94 03/27/21 11:06 37 C 81 18 107/70 96 03/27/21 08:00 80 22 136/81 96 03/27/21 07:22 79 18 99 03/27/21 04:25 83 24 148/93 H 95 03/27/21 02:25 171/97 H 03/27/21 02:03 85 18 94 03/27/21 01:50 36.4 C L 83 20 138/81 98 Critical Care Results & Data Vital Signs (Past 12 Hours) Vital Signs Temp Pulse Resp BP Pulse Ox 03/27/21 12:49 87 20 94 03/27/21 11:06 37 C 81 18 107/70 96 03/27/21 08:00 80 22 136/81 96 03/27/21 07:22 79 18 99 03/27/21 04:25 83 24 148/93 H 95 03/27/21 02:25 171/97 H 03/27/21 02:03 85 18 94 03/27/21 01:50 36.4 C L 83 20 138/81 98 Lab & Micro Results (Past 24 Hours) RBC 3.35 M/uL (4.7-6.1) L 03/27/21 WBC 4.59 K/uL (4.8-10.8) L 03/27/21 Hgb 12.2 g/dL (14.0-18.0) L 03/27/21 Hct 36.0 % (42-52) L 03/27/21 MCV 107.5 fL (80-100) H 03/27/21 MCH 36.4 pg (25-34) H 03/27/21 MCHC 33.9 g/dL (32-36) 03/27/21 RDW Standard Deviation 54.3 fL (36.4-46.3) H 03/27/21 RDW Coefficient of Variation 13.7 % (11.5-14.5) 03/27/21 Plt Count 139 K/uL (130-400) 03/27/21 MPV 10.2 fL (7.4-10.4) 03/27/21 Neutrophils (%) (Auto) 76.5 % 03/27/21 Lymphocytes (%) (Auto) 16.8 % 03/27/21 Monocytes # (Auto) 0.28 K/uL (0.11-0.59) 03/27/21 Eosinophils # (Auto) 0.00 K/uL (0-0.5) 03/27/21 Immature Granulocyte % (Auto) 0.4 % 03/27/21 Neutrophils # (Auto) 3.51 K/uL (1.4-6.5) 03/27/21 Lymphocytes # (Auto) 0.77 K/uL (1.2-3.4) L 03/27/21 Monocytes # (Auto) 0.28 K/uL (0.11-0.59) 03/27/21 Eosinophils # (Auto) 0.00 K/uL (0-0.5) 03/27/21 Basophils # (Auto) 0.01 K/uL (0-0.2) 03/27/21 Immature Granulocyte # (Auto) 0.02 K/uL (0.00-0.02) 03/27/21 Na 137 mmol/L (136-145) 03/27/21 K 4.3 mmol/L (3.5-5.1) 03/27/21 Cl 106 mmol/L (98-107) 03/27/21 CO2 27 mmol/L (21-32) 03/27/21 Anion Gap 4.0 (3-11) 03/27/21 BUN 14 mg/dl (7-18) 03/27/21 Creatinine 0.88 mg/dl (0.6-1.4) 03/27/21 Estimated GFR ( Amer) 90.1 ml/min 03/27/21 Estimated GFR (Non-Af Amer) 77.8 ml/min 03/27/21 BUN/Creatinine Ratio 15.6 (10-20) 03/27/21 Glu 163 mg/dl (70-99) H 03/27/21 Ca 8.6 mg/dl (8.5-10.1) 03/27/21 Total Bilirubin 0.6 mg/dl (0.2-1) 03/26/21 AST 11 U/L (15-37) L 03/26/21 ALT 7 U/L (12-78) L 03/26/21 Alkaline Phosphatase 80 U/L (45-117) 03/26/21 TP 7.7 gm/dl (6.4-8.2) 03/26/21 Albumin 3.1 gm/dl (3.4-5.0) L 03/26/21 Globulin 4.6 gm/dl (2.5-4.0) H 03/26/21 Albumin/Globulin Ratio 0.7 (0.9-2) L 03/26/21 Mg 2.2 mg/dl (1.8-2.4) 03/27/21 06:41 03/27/21 Calcium Level 8.6 mg/dl (8.5-10.1) 03/27/21 06:41 03/27/21 Prothromb Time International Ratio 1.0 (0.9-1.1) 03/26/21 16:10 03/26/21 Diagnostic Findings (Past 24 Hours) Chest X-Ray 03/26/21 12:41 XR chest 1V portable HISTORY: 85 years-old Male SOB acute shortness of breath COMPARISON: Chest radiograph 02/26/2016 TECHNIQUE: Portable AP view of the chest FINDINGS: Cardiac silhouette is mildly enlarged. Calcified plaque of the thoracic aorta. Mild bilateral reticular nodular densities are new from prior. The lungs are hypoinflated. No pneumothorax, or large pleural effusion. No lobar airspace consolidation. IMPRESSION: 1. Mild bilateral reticular nodular opacities are suggestive of an infectious or inflammatory pneumonitis. 2. Cardiomegaly with hypoinflation. ACT 112: Negative or not required by law. The above report was generated using voice recognition software. It may contain grammatical, syntax or spelling errors. Electronically signed by: Albert So M.D. 03/26/2021 3:46 PM Chest CTA 03/26/21 17:34 CT ANGIOGRAPHY OF THE CHEST, PULMONARY EMBOLUS PROTOCOL CLINICAL HISTORY: Dyspnea. Atypical chest pain. Weakness. COMPARISON STUDY: Chest radiograph performed earlier today. TECHNIQUE: Following IV administration of 113 mL of Optiray, helical axial images of the chest were obtained utilizing the pulmonary embolus protocol. Maximal intensity projections and sagittal and coronal reformats were viewed on an independent 3D workstation. IV contrast was administered without complication. Automated exposure control was utilized for the study. A dose lowering technique was utilized adhering to the principles of ALARA. CT DOSE: 684.73 mGy.cm FINDINGS: No pulmonary emboli are identified although this exam is significantly compromised by respiratory motion. The segmental and subsegmental pulmonary arteries are suboptimally assessed on this study. Cardiomegaly is noted. There is no pericardial effusion. Moderate coronary artery calcification is present. Prominent mediastinal and bilateral hilar lymph nodes are noted. These may be reactive. There are several partially calcified lymph nodes. Lungs are suboptimally assessed due to respiratory motion. Moderate groundglass opacities within the lungs are noted. Note is made of a nodular 9 mm opacity within the superior segment of the left lower lobe on image 118 of 238. This favors airspace disease. No pneumothorax or pleural effusion is noted. Visualized portions of the upper abdomen are unremarkable. IMPRESSION: 1. No pulmonary emboli identified although exam significantly compromised by respiratory motion and suboptimal evaluation of the segmental and subsegmental pulmonary arteries. 2. Ground glass opacities throughout the lungs which favor viral pneumonia. 9 mm nodular opacity within the left lower lobe favors airspace disease however a chest CT in 3 months to ensure resolution is recommended to exclude the po ssibility of a pulmonary nodule. 3. Cardiomegaly and moderate coronary artery calcification. ACT 112: Negative or not required by law. Electronically signed by: Rodrigo Laguna M.D. 03/26/2021 7:53 PM I & O Totals 24 Hours 03/26/21 03/27/21 03/28/21 06:59 06:59 06:59 Output Total 350 / 350 Balance -350 / -350 Cumulative 03/26/21 12:32 thru 03/27/21 06:58 Output Total 350 Balance -350 RT Ventilator Mngmt (Last Documented) Ventilator Ordered Settings Respiratory Rate 20 03/27/21 12:49 Ventilator - PT Measurements Respiratory Rate 20 PG Care Time/CCT Total # of Minutes Spent Total Time Spent with Patient: Total time spent is greater than 50% in coordination of care (as documented) at patient's floor/unit and/or counseling patient: Coding Level of Care Code 24698 Initial Inpt Care Lvl 3 Diagnoses Respiratory failure with hypoxia J96.91 Dyspnea R06.[address] scan of lung R91.8
[2021-03-27] MEDS ORDERED: ASPIRIN CHEW 324 MG PO STA (13:55)
[2021-03-27 14:25] LABS: C Reactive Protein 1.53 mg/dl (0-0.29)
[2021-03-27] MEDS: predniSONE 20 MG TAB PO SCH (15:07)
[2021-03-27 15:47] LABS: Adenovirus PCR Not Detected (NotDetected); Bordetella parapertussis PCR Not Detected (NotDetected); Bordetella pertussis PCR Not Detected (NotDetected); Chlamydia pneumoniae PCR Not Detected (NotDetected); Coronavirus 229E PCR Not Detected (NotDetected); Coronavirus CoV-2 (COVID19)PCR Not Detected (NotDetected); Coronavirus HKU1 PCR Not Detected (NotDetected); Coronavirus NL63 PCR Not Detected (NotDetected); Coronavirus OC43PCR Not Detected (NotDetected); Human Metapneumovirus PCR Not Detected (NotDetected); Influenza A PCR Not Detected (NotDetected); Influenza B PCR Not Detected (NotDetected); Mycoplasma pneumoniae PCR Not Detected (NotDetected); Parainfluenza Virus 1 PCR Not Detected (NotDetected); Parainfluenza Virus 2 PCR Not Detected (NotDetected); Parainfluenza Virus 3 PCR Not Detected (NotDetected); Parainfluenza Virus 4 PCR Not Detected (NotDetected); Respiratory Syncytial VirusPCR Not Detected (NotDetected); Rhinovirus/Enterovirus PCR Not Detected (NotDetected)
[2021-03-27 15:58] LABS: Appearance Urine Clear (Clear); Bilirubin Urine Negative (Negative); Blood Urine Negative (Negative); Color Urine Dark Yellow; Glucose Urine UA Negative (Negative); Ketones Urine Trace (Negative); Leukocyte Esterase Urine Negative (Negative); Nitrite Urine Negative (Negative); Protein Urine Negative (Negative); Specific Gravity Urine 1.021 (1.000-1.030); Urobilinogen Urine Negative (Negative)
[2021-03-27] MEDS: CITALOPRAM 20 MG TAB PO SCH (21:12)
[2021-03-27] MEDS: GABAPENTIN 300 MG CAP PO SCH (21:13)
[2021-03-28] MEDS: LEVALBUTEROL 1.25MG/0.5ML NEB INH SCH ×4 (00:22→19:42)
[2021-03-28] MEDS: IPRATROPIUM BROMIDE NEB SOLN 0.02% 2.5 ML VIAL INH SCH ×4 (00:22→19:42)
[2021-03-28 06:48] LABS: Hematocrit (blood only) 35.9 % (42-52); Mean Corpuscular Hemoglobin 36.4 pg (25-34); Mean Corpuscular Hgb Conc 33.4 g/dL (32-36); Mean Corpuscular Volume 108.8 fL (80-100); Mean Platelet Volume 10.2 fL (7.4-10.4); Platelet Count 149 K/uL (130-400); RDW Coefficient of Variation 13.9 % (11.5-14.5); RDW Standard Deviation 54.8 fL (36.4-46.3); White Blood Count 9.41 K/uL (4.8-10.8)
[2021-03-28 07:20] LABS: BUN Creatinine Ratio 17.4 (10-20); Calcium 8.3 mg/dl (8.5-10.1); Creatinine Clr Calc Pharmacy 67.5 ml/min; Est GFR (African American) 83.7 ml/min; Est GFR (Non-African American) 72.2 ml/min; Magnesium 2.1 mg/dl (1.8-2.4); Potassium 4.3 mmol/L (3.5-5.1)
[2021-03-28 07:24] LABS: Phosphorus 3.1 mg/dl (2.5-4.9)
--- NOTE | 2021-03-28 09:31 | Hospitalist Progress Note ---
Date of Service March 28, 2021 Assessment & Plan (1) Respiratory failure with hypoxia: (2) Elevated troponin: Plan: This is an 85-year-old male, who presents with ongoing respiratory illness. 1. Acute respiratory failure with hypoxia Respiratory illness with cough, fever and soaking sweats. When pt came in, he was tachypneic, with oxygen headache and tachypnea improved, then resting comfortably on 2L. He also had significant chest pain before started on oxygen. Then resting comfortably, using 2 L of nasal cannula. CTA of chest ground glass opacities, possible viral pneumonia. No PE. COVID test is negative and he has completed vaccination with a booster shot. RSV and flu - negative Biofire - negative Legionella, Mycoplasma - pending The patient also has underlying interstitial lung disease. Continue steroids and nebs and p.o. doxycycline and monitor. Monitor the response. 2 step prior to discharge. Pulmonary medicine also consulted - patient may have some degree of chronic interstitial lung disease. Current CT also w/ pattern concerning for an infectious etiology. Viral illnesses are possible. Alternative etiologies including atypical pulmonary edema would be on the list especially given his elevated troponin. BNP and pro calcitonin were negative. Recommend tapering his prednisone over the next 5 days. Intermittent aspiration would also be a potential consideration given his neurological disease as well as potential vocal cord/dysphonia. Await results of his serological evaluation. Serological evaluation will be conducted for poss. ILD. Needs repeat ct chest in 3 months to rule out underlying lung nodule. Follow up in pulmonary clinic. Aspiration - 03/28 -patient had an choking/aspiration episode while in the hospital He was able to cough pieces of food out Reports this is quite frequent for him, on daily basis Will make patient n.p.o. for now, will obtain chest x-ray, will cover him with Zosyn empirically, and will obtain speech eval tomorrow Patient's at the bedside during this episode, and she is in agreement with the plan 2. Elevated troponin Initial troponin negative in ED Currently chest pain-free, reports chest pain ceased after he got oxygen in ED Repeat troponin elevated Likely demand ischemia secondary to above Echo ordered -LV is normal in size. EF 55 to 60%. LV wall motion is normal. RV systolic function is normal. Cardiology was consulted - believe elev. troponin secondary to pulmonary issues/ pneumonia 3. Parkinson's. Continue his home medications of carbidopa/levodopa and entacapone. 4. Depression: Continue citalopram. DVT prophylaxis: Lovenox. DISPOSITION: Closely monitor in the med tele. Admission and Anticipated Discharge Date Admission Date: March 27, 2021 Subjective Patient seen in follow-up of shortness of breath, chest pain I was called to bedside, as patient had a choking episode, eating his dinner Patient's at the bedside Patient is able to bring up pieces of food, beef, carrots Says it happens to him quite frequently Reports that 3 out of 7 times a day when he eats he chokes/aspirates, and cannot catch his breath Patient was made n.p.o., chest x-ray ordered, started Zosyn empirically, and will have speech eval done tomorrow Patient and in agreement with the plan Currently he is otherwise feeling better, still occasionally coughing up small pieces of food Denies any chest pain, abdominal pain, nausea or vomiting He actually does not feel short of breath at this time Review of Systems Review of Systems: All systems reviewed & are unremarkable except as noted in Subjective Physical Exam Physical Exam: GENERAL: elderly frail male, on 2 L NC (currently seems in NAD, however just had a chocking episode) HEENT: NC/AT, EOMI, PERRL NECK: No JVD, no neck masses. CARDIOVASCULAR: S1 and S2 heard. Regular rate and rhythm. No murmur, no gallop. RESPIRATORY: No accessory muscle use. Mild bibasilar crackles, + diffuse mild rhonchi. No wheezing. Using 2L via NC ABDOMEN: Soft, bowel sounds present, nontender, no distention. NEURO: Alert oriented, answering questions appropriately, no facial asymmetry, speech fluent, moves extremities EXTREMITIES: No edema, no erythema. Results & Data Results & Data ([facility]) Vital Signs (Past 12 Hours) Vital Signs Temp Pulse Pulse Resp BP Pulse Ox 03/28/21 07:21 73 18 93 03/28/21 03:44 36.3 C L 84 20 156/83 H 97 03/28/21 00:23 64 20 93 03/27/21 23:00 36.7 C 83 90 20 159/85 H 95 Laboratory Results 03/28/21 03/28/21 03/27/21 Range/Units 06:15 06:15 18:02 WBC 9.41 (4.8-10.8) K/uL RBC 3.30 L (4.7-6.1) M/uL Hgb 12.0 L (14.0-18.0) g/dL Hct 35.9 L (42-52) % MCV 108.8 H (80-100) fL MCH 36.4 H (25-34) pg MCHC 33.4 (32-36) g/dL RDW Std Deviation 54.8 H (36.4-46.3) fL RDW Coeff of Clif[place] 13.9 (11.5-14.5) % Plt Count 149 (130-400) K/uL MPV 10.2 (7.4-10.4) fL ESR (0-20) mm/hr Sodium 136 (136-145) mmol/L Potassium 4.3 (3.5-5.1) mmol/L Chloride 104 (98-107) mmol/L Carbon Dioxide 29 (21-32) mmol/L Anion Gap 3.0 (3-11) BUN 17 (7-18) mg/dl Creatinine 0.95 (0.6-1.4) mg/dl Est Cr Clr Drug Dosing 67.5 ml/min Est GFR ( Amer) 83.7 ml/min Est GFR (Non-Af Amer) 72.2 ml/min BUN/Creatinine Ratio 17.4 (10-20) Glucose 130 H (70-99) mg/dl Calcium 8.3 L (8.5-10.1) mg/dl Phosphorus 3.1 (2.5-4.9) mg/dl Magnesium 2.1 (1.8-2.4) mg/dl Total Creatine Kinase (39-308) U/L Troponin I 0.933 H* (0-0.045) ng/ml C-Reactive Protein (0-0.29) mg/dl NT-Pro-B Natriuret Pep 535 (0-1800) pg/ml Procalcitonin (0-0.5) ng/ml Urine Color Urine Appearance (Clear) Urine pH (4.5-7.5) Ur Specific [place] (1.000-1.030) Urine Protein (Negative) Urine Glucose (UA) (Negative) Urine Ketones (Negative) Urine Blood (Negative) Urine Nitrite (Negative) Urine Bilirubin (Negative) Urine Urobilinogen (Negative) Ur Leukocyte Esterase (Negative) IgE Rheumatoid Factor Cycl Citrul Peptide IgG REGINO Screen Anti-Proteinase 3 Anti-Myeloperoxidase ANCA Adenovirus (PCR) (NotDetected) B. pertussis DNA (PCR) (NotDetected) B.parapertussis DNA PCR (NotDetected) C. pneumoniae DNA (PCR) (NotDetected) Coronavirus OC43 (PCR) (NotDetected) Coronavirus HKU1 (PCR) (NotDetected) Coronavirus 229E (PCR) (NotDetected) COVID-19 Eval Order SARS-CoV-2 (PCR) (NotDetected) Coronavirus NL63 (PCR) (NotDetected) Human Metapneumovir PCR (NotDetected) Influenza Type A (PCR) (NotDetected) Influenza Type B (PCR) (NotDetected) L.pneumophila IgM Ab Mycoplasma pneumon IgG Mycoplasma pneumon IgM M. pneumoniae (PCR) (NotDetected) Parainfluenza 1 (PCR) (NotDetected) Parainfluenza 2 (PCR) (NotDetected) Parainfluenza 3 (PCR) (NotDetected) Parainfluenza 4 (PCR) (NotDetected) RSV (PCR) (NotDetected) Entero/Rhino (PCR) (NotDetected) 03/27/21 03/27/21 03/27/21 Range/Units 15:00 14:00 14:00 WBC (4.8-10.8) K/uL RBC (4.7-6.1) M/uL Hgb (14.0-18.0) g/dL Hct (42-52) % MCV (80-100) fL MCH (25-34) pg MCHC (32-36) g/dL RDW Std Deviation (36.4-46.3) fL RDW Coeff of Clif[place] (11.5-14.5) % Plt Count (130-400) K/uL MPV (7.4-10.4) fL ESR (0-20) mm/hr Sodium (136-145) mmol/L Potassium (3.5-5.1) mmol/L Chloride (98-107) mmol/L Carbon Dioxide (21-32) mmol/L Anion Gap (3-11) BUN (7-18) mg/dl Creatinine (0.6-1.4) mg/dl Est Cr Clr Drug Dosing ml/min Est GFR ( Amer) ml/min Est GFR (Non-Af Amer) ml/min BUN/Creatinine Ratio (10-20) Glucose (70-99) mg/dl Calcium (8.5-10.1) mg/dl Phosphorus (2.5-4.9) mg/dl Magnesium (1.8-2.4) mg/dl Total Creatine Kinase (39-308) U/L Troponin I (0-0.045) ng/ml C-Reactive Protein (0-0.29) mg/dl NT-Pro-B Natriuret Pep (0-1800) pg/ml Procalcitonin (0-0.5) ng/ml Urine Color Dark Yellow Urine Appearance Clear (Clear) Urine pH 6.0 (4.5-7.5) Ur Specific [place] 1.021 (1.000-1.030) Urine Protein Negative (Negative) Urine Glucose (UA) Negative (Negative) Urine Ketones Trace H (Negative) Urine Blood Negative (Negative) Urine Nitrite Negative (Negative) Urine Bilirubin Negative (Negative) Urine Urobilinogen Negative (Negative) Ur Leukocyte Esterase Negative (Negative) IgE Rheumatoid Factor Cycl Citrul Peptide IgG REGINO Screen Anti-Proteinase 3 Anti-Myeloperoxidase ANCA Adenovirus (PCR) Not Detected (NotDetected) B. pertussis DNA (PCR) Not Detected (NotDetected) B.parapertussis DNA PCR Not Detected (NotDetected) C. pneumoniae DNA (PCR) Not Detected (NotDetected) Coronavirus OC43 (PCR) Not Detected (NotDetected) Coronavirus HKU1 (PCR) Not Detected (NotDetected) Coronavirus 229E (PCR) Not Detected (NotDetected) COVID-19 Eval Order [facility]NP at [facility] SARS-CoV-2 (PCR) Not Detected (NotDetected) Coronavirus NL63 (PCR) Not Detected (NotDetected) Human Metapneumovir PCR Not Detected (NotDetected) Influenza Type A (PCR) Not Detected (NotDetected) Influenza Type B (PCR) Not Detected (NotDetected) L.pneumophila IgM Ab Mycoplasma pneumon IgG Mycoplasma pneumon IgM M. pneumoniae (PCR) Not Detected (NotDetected) Parainfluenza 1 (PCR) Not Detected (NotDetected) Parainfluenza 2 (PCR) Not Detected (NotDetected) Parainfluenza 3 (PCR) Not Detected (NotDetected) Parainfluenza 4 (PCR) Not Detected (NotDetected) RSV (PCR) Not Detected (NotDetected) Entero/Rhino (PCR) Not Detected (NotDetected) 03/27/21 03/27/21 03/27/21 Range/Units 13:49 13:49 13:49 WBC (4.8-10.8) K/uL RBC (4.7-6.1) M/uL Hgb (14.0-18.0) g/dL Hct (42-52) % MCV (80-100) fL MCH (25-34) pg MCHC (32-36) g/dL RDW Std Deviation (36.4-46.3) fL RDW Coeff of Clif[place] (11.5-14.5) % Plt Count (130-400) K/uL MPV (7.4-10.4) fL ESR 52 H (0-20) mm/hr Sodium (136-145) mmol/L Potassium (3.5-5.1) mmol/L Chloride (98-107) mmol/L Carbon Dioxide (21-32) mmol/L Anion Gap (3-11) BUN (7-18) mg/dl Creatinine (0.6-1.4) mg/dl Est Cr Clr Drug Dosing ml/min Est GFR ( Amer) ml/min Est GFR (Non-Af Amer) ml/min BUN/Creatinine Ratio (10-20) Glucose (70-99) mg/dl Calcium (8.5-10.1) mg/dl Phosphorus (2.5-4.9) mg/dl Magnesium (1.8-2.4) mg/dl Total Creatine Kinase 105 (39-308) U/L Troponin I (0-0.045) ng/ml C-Reactive Protein 1.53 H (0-0.29) mg/dl NT-Pro-B Natriuret Pep (0-1800) pg/ml Procalcitonin (0-0.5) ng/ml Urine Color Urine Appearance (Clear) Urine pH (4.5-7.5) Ur Specific [place] (1.000-1.030) Urine Protein (Negative) Urine Glucose (UA) (Negative) Urine Ketones (Negative) Urine Blood (Negative) Urine Nitrite (Negative) Urine Bilirubin (Negative) Urine Urobilinogen (Negative) Ur Leukocyte Esterase (Negative) IgE Rheumatoid Factor Pending Cycl Citrul Peptide IgG Pending REGINO Screen Pending Anti-Proteinase 3 Pending Anti-Myeloperoxidase Pending ANCA Pending Adenovirus (PCR) (NotDetected) B. pertussis DNA (PCR) (NotDetected) B.parapertussis DNA PCR (NotDetected) C. pneumoniae DNA (PCR) (NotDetected) Coronavirus OC43 (PCR) (NotDetected) Coronavirus HKU1 (PCR) (NotDetected) Coronavirus 229E (PCR) (NotDetected) COVID-19 Eval Order SARS-CoV-2 (PCR) (NotDetected) Coronavirus NL63 (PCR) (NotDetected) Human Metapneumovir PCR (NotDetected) Influenza Type A (PCR) (NotDetected) Influenza Type B (PCR) (NotDetected) L.pneumophila IgM Ab Mycoplasma pneumon IgG Mycoplasma pneumon IgM M. pneumoniae (PCR) (NotDetected) Parainfluenza 1 (PCR) (NotDetected) Parainfluenza 2 (PCR) (NotDetected) Parainfluenza 3 (PCR) (NotDetected) Parainfluenza 4 (PCR) (NotDetected) RSV (PCR) (NotDetected) Entero/Rhino (PCR) (NotDetected) 03/27/21 03/27/21 03/27/21 Range/Units 13:49 13:49 11:21 WBC (4.8-10.8) K/uL RBC (4.7-6.1) M/uL Hgb (14.0-18.0) g/dL Hct (42-52) % MCV (80-100) fL MCH (25-34) pg MCHC (32-36) g/dL RDW Std Deviation (36.4-46.3) fL RDW Coeff of Clif[place] (11.5-14.5) % Plt Count (130-400) K/uL MPV (7.4-10.4) fL ESR (0-20) mm/hr Sodium (136-145) mmol/L Potassium (3.5-5.1) mmol/L Chloride (98-107) mmol/L Carbon Dioxide (21-32) mmol/L Anion Gap (3-11) BUN (7-18) mg/dl Creatinine (0.6-1.4) mg/dl Est Cr Clr Drug Dosing ml/min Est GFR ( Amer) ml/min Est GFR (Non-Af Amer) ml/min BUN/Creatinine Ratio (10-20) Glucose (70-99) mg/dl Calcium (8.5-10.1) mg/dl Phosphorus (2.5-4.9) mg/dl Magnesium (1.8-2.4) mg/dl Total Creatine Kinase (39-308) U/L Troponin I 1.020 H* (0-0.045) ng/ml C-Reactive Protein (0-0.29) mg/dl NT-Pro-B Natriuret Pep (0-1800) pg/ml Procalcitonin 0.15 (0-0.5) ng/ml Urine Color Urine Appearance (Clear) Urine pH (4.5-7.5) Ur Specific [place] (1.000-1.030) Urine Protein (Negative) Urine Glucose (UA) (Negative) Urine Ketones (Negative) Urine Blood (Negative) Urine Nitrite (Negative) Urine Bilirubin (Negative) Urine Urobilinogen (Negative) Ur Leukocyte Esterase (Negative) IgE Pending Rheumatoid Factor Cycl Citrul Peptide IgG REGINO Screen Anti-Proteinase 3 Anti-Myeloperoxidase ANCA Adenovirus (PCR) (NotDetected) B. pertussis DNA (PCR) (NotDetected) B.parapertussis DNA PCR (NotDetected) C. pneumoniae DNA (PCR) (NotDetected) Coronavirus OC43 (PCR) (NotDetected) Coronavirus HKU1 (PCR) (NotDetected) Coronavirus 229E (PCR) (NotDetected) COVID-19 Eval Order SARS-CoV-2 (PCR) (NotDetected) Coronavirus NL63 (PCR) (NotDetected) Human Metapneumovir PCR (NotDetected) Influenza Type A (PCR) (NotDetected) Influenza Type B (PCR) (NotDetected) L.pneumophila IgM Ab Pending Mycoplasma pneumon IgG Pending Mycoplasma pneumon IgM Pending M. pneumoniae (PCR) (NotDetected) Parainfluenza 1 (PCR) (NotDetected) Parainfluenza 2 (PCR) (NotDetected) Parainfluenza 3 (PCR) (NotDetected) Parainfluenza 4 (PCR) (NotDetected) RSV (PCR) (NotDetected) Entero/Rhino (PCR) (NotDetected)
[2021-03-28] MEDS: predniSONE 20 MG TAB PO SCH (10:05)
[2021-03-28] MEDS: guaiFENesin 600 MG TABCR PO SCH ×2 (10:05→20:37)
[2021-03-28] MEDS: ENTACAPONE 200 MG TAB PO SCH ×3 (10:05→20:36)
[2021-03-28] MEDS: CARBIDOPA/LEVODOPA 50/200MG EXT REL TAB PO SCH ×3 (10:06→20:35)
[2021-03-28] MEDS: PRAMIPEXOLE DIHYDROCHLO 0.25 MG TAB PO SCH ×3 (10:06→20:36)
[2021-03-28] MEDS: DOXYCYCLINE HYCLATE 100 MG CAP PO SCH ×2 (10:06→20:35)
[2021-03-28] MEDS: ENOXAPARIN INJ 40 MG/0.4 ML SYR SQ SCH (10:08)
[2021-03-28] MEDS: ASPIRIN 81 MG ECTAB PO SCH (10:24)
--- NOTE | 2021-03-28 11:57 | Pulmonology Progress Note ---
Date of Service March 28, 2021 Assessment & Plan (1) Respiratory failure with hypoxia: (2) Dyspnea: (3) Cough: (4) Abnormal CT scan of lung: Plan: Impression: 85-year-old male with history of Parkinson's admitted with fevers chills and tachypnea. He was never hypoxemic but his CT scan did show diffuse groundglass opacities. The pattern is concerning for an infectious etiology. Review of his CT scan of the abdomen and pelvis done a while ago did demonstrate some subpleural reticulation and the patient may have some degree of chronic interstitial lung disease. Recommendations: 1. Abnormal CT scan: Patient has 2 processes. He has reticulation in the s ubpleural areas arguing for some chronic lung disease, most likely pulmonary fibrosis. He also has groundglass opacities in his current presentation, would be most concerned about an acute infectious etiology. Viral illnesses are possible however there is no specific treatment for them so I do not think conducting additional testing is required at this point time. Alternative etiologies including atypical pulmonary edema would be on the list especially given his elevated troponin. BNP and pro calcitonin were negative. Recommend tapering his prednisone to off over the next 5 days.. Intermittent aspiration would also be a potential consideration given his neurological disease as well as potential vocal cord/dysphonia. Await results of his serological evaluation. Agree with cardiology consultation 2. Possible interstitial lung disease: Serological evaluation will be conducted. Plan on tapering to steroids as tolerated. 3. The patient should be assessed for supplemental oxygen prior to discharge. Recommend two-step assessment 4. Ultimately the patient will require clinical follow-up in the pulmonary clinic with pulmonary function tests and possible follow-up CT scan. Depending on his PFTs, he may require speech therapy evaluation. I would be happy to see this patient back in the outpatient pulmonary clinic. At this point time pulmonary will sign off. Please contact us if we can be of additional assistance. The above recommendations and plan were discussed with the patient and his in detail in the room. Questions were answered to the best of my ability and the y expressed understanding and are in agreement with the plan as outlined Admission and Anticipated Discharge Date Admission Date: March 27, 2021 Subjective Patient seen and examined. EMR reviewed. The patient states that he feels much better. He is now able to talk without coughing. He is not producing any phlegm. He did not not report any significant shortness of breath. No chest pain or lower extremity edema. Review of Systems Review of Systems: All systems reviewed & are unremarkable except as noted in HPI & below Physical Exam Constitutional: WD/WN, vitals as above Neck: trachea midline, no thyromegaly Respiratory: normal respiratory effort, lungs clear to auscultation Cardiovascular: RRR, no murmur, no edema Gastrointestinal (Abdomen): normal bowel sounds, soft, nontender, no hepatosplenomegaly Musculoskeletal: Extremities: extremities normal to inspection Skin: no rashes, warm and dry Lymphatic: no cervical lymphadenopathy Results & Data Results & Data ([facility]) Vital Signs (Past 12 Hours) Vital Signs Temp Pulse Resp BP Pulse Ox 03/28/21 10:12 36.6 C 82 16 124/72 98 03/28/21 07:21 73 18 93 03/28/21 03:44 36.3 C L 84 20 156/83 H 97 03/28/21 00:23 64 20 93 Laboratory Results 03/28/21 06:15 03/28/21 06:15 ESR 52 Troponin peaked at 1.02 CRP 1.53 Follow-up BMP 535 Procalcitonin 0.15 Diagnostic Findings No new imaging PG Care Time/CCT Total # of Minutes Spent Total Time Spent with Patient: Total time spent is greater than 50% in coordination of care (as documented) at patient's floor/unit and/or counseling patient: Coding Level of Care Code 57337 Subseq Hosp Care Lvl 2 Diagnoses Respiratory failure with hypoxia J96.91 Dyspnea R06.[address] scan of lung R91.8
--- NOTE | 2021-03-28 12:39 | Cardiology Consultation ---
Date of Consultation March 28, 2021 Assessment & Plan (1) Elevated troponin: (2) Respiratory failure with hypoxia: (3) Cough: (4) Viral pneumonia: Patient has been admitted with viral pneumonia. I believe his cardiac troponin elevation is multifactorial including his age, dehydration and hypoxia until he reached the hospital. His echocardiogram is unremarkable and his EKG shows no acute changes. At this time I would recommend conservative management and no additional cardiac testing. I would treat him supportively for his viral pneumonia as suggested by the pulmonary service. We will follow along with you during his hospital stay. History of Present Illness Attending Physician: Darrell Shi MD History of Present Illness This is an 85-year-old very jovial male patient with his at the bedside. He states that before he retired he was with the [employer]. He was in his usual state of health and then developed a cough and fever. He has been admitted with a viral pneumonitis. He is Covid negative. He has been vaccinated and had a booster. He has no significant cardiac history. Upon presentation he was most likely dehydrated with associated fevers. Since a slight elevation in his cardiac troponin which has not significantly increased or decreased. His EKG shows no acute changes. He had a resting echocardiogram this admission which shows normal LV function and no normalities. Allergies Allergy/AdvReac Type Severity Reaction Status Date / Time bacitracin Allergy Unknown SWELLING Verified 03/26/21 17:08 fentanyl Allergy Unknown PASSED OUT Verified 03/26/21 17:08 neomycin Allergy Unknown SWELLING Verified 03/26/21 17:08 polymyxin B Allergy Unknown SWELLING Verified 03/26/21 17:08 Home Medications Medication Instructions Recorded Confirmed Type baclofen 10 mg tablet 10 mg PO BID PRN #60 tab 12/14/20 03/26/21 Rx carbidopa ER 50 mg-levodopa 200 mg 1 tab PO TID #90 tab 01/25/21 03/26/21 Rx tablet,extended release citalopram 10 mg tablet 10 mg PO HS #90 tab 01/26/21 03/26/21 Rx entacapone 200 mg tablet (Comtan) 200 mg PO TID #270 tab 01/26/21 03/26/21 Rx pramipexole 0.125 mg tablet 0.125 mg PO TID #270 tab 01/26/21 03/26/21 Rx gabapentin 300 mg capsule 300 mg PO HS 03/26/21 03/26/21 History Patient History Medical History Cervical facet joint syndrome Hard of hearing History of anesthesia reaction WAS SENT TO [facility] FOR 3 DAYS TO "RECOVER MY MIND ABILITIES TO HANDLE THINGS" - FOLLOWING BACK SURGERY/DAFNE KUNZ ABOUT 7 YRS AGO History of kidney stones History of skin cancer AND REMOVED Lumbar canal stenosis Parkinson disease Surgical History History of back surgery History of hip replacement RIGHT AND LEFT History of lithotripsy History of total left knee replacement History of total right knee replacement Family History Unknown Cancer Father Prostate cancer Mother No problems noted. Social History Smoking Status: Never smoker Hx Alcohol Use: No Hx Substance Use: No Preferred Language: Sinhala Communication Ability: Effective Mold Stacker Required: No Beliefs That Will Affect Care: Congregational Congregational Beliefs: ZOROASTRIANISM / VOODOO marital status: Current Living Situation: Spouse How many Children do You have: 4 Feels Safe at Home: Yes Assistive Devices: Cane and Walker Review of Systems Review of Systems: Review of Systems: See HPI for pertinent positives. All other 10 point review of systems are negative. Physical Exam Physical Exam: General: no acute distress and stated age Head: normocephalic, no masses, lesions, tenderness or abnormalities Eyes: conjunctiva are pink and non-injected, sclera clear Neck: supple, no adenopathy, no bruits, normal jugular venous pulse, no hepatojugular reflux Chest: normal shape and normal respiratory effort Lungs: clear to auscultation and percussion Cardiac Exam: - regular rate & rhythm, no murmurs gallops or rubs - normal S1, normal S2 Pulses: 2(+) throughout Abdomen: abdomen soft, non-tender, no abnormal masses and no hepatosplenomegaly Musculoskeletal: no gait disturbance, no joint inflammation, no deforming arthritis Extremities: no edema and no cyanosis Neuro: grossly normal exam Results & Data ([facility]) Vital Signs (Past 12 Hours) Vital Signs Temp Pulse Resp BP Pulse Ox 03/28/21 10:12 36.6 C 82 16 124/72 98 03/28/21 07:21 73 18 93 03/28/21 03:44 36.3 C L 84 20 156/83 H 97 Laboratory Results Laboratory Results - last 24 hr 03/27/21 03/27/21 03/27/21 11:21 13:49 13:49 WBC RBC Hgb Hct MCV MCH MCHC RDW Std Deviation RDW Coeff of [place] Plt Count MPV ESR Sodium Potassium Chloride Carbon Dioxide Anion Gap BUN Creatinine Est Cr Clr Drug Dosing Est GFR ( Amer) Est GFR (Non-Af Amer) BUN/Creatinine Ratio Glucose Calcium Phosphorus Magnesium Total Creatine Kinase Troponin I 1.020 H* C-Reactive Protein NT-Pro-B Natriuret Pep Procalcitonin 0.15 Urine Color Urine Appearance Urine pH Ur Specific [place] Urine Protein Urine Glucose (UA) Urine Ketones Urine Blood Urine Nitrite Urine Bilirubin Urine Urobilinogen Ur Leukocyte Esterase IgE Pending Rheumatoid Factor Cycl Citrul Peptide IgG REGINO Screen Anti-Proteinase 3 Anti-Myeloperoxidase ANCA Adenovirus (PCR) B. pertussis DNA (PCR) B.parapertussis DNA PCR C. pneumoniae DNA (PCR) Coronavirus OC43 (PCR) Coronavirus HKU1 (PCR) Coronavirus 229E (PCR) COVID-19 Eval Order SARS-CoV-2 (PCR) Coronavirus NL63 (PCR) Human Metapneumovir PCR Influenza Type A (PCR) Influenza Type B (PCR) L.pneumophila IgM Ab Pending Mycoplasma pneumon IgG Pending Mycoplasma pneumon IgM Pending M. pneumoniae (PCR) Parainfluenza 1 (PCR) Parainfluenza 2 (PCR) Parainfluenza 3 (PCR) Parainfluenza 4 (PCR) RSV (PCR) Entero/Rhino (PCR) 03/27/21 03/27/21 03/27/21 13:49 13:49 13:49 WBC RBC Hgb Hct MCV MCH MCHC RDW Std Deviation RDW Coeff of [place] Plt Count MPV ESR 52 H Sodium Potassium Chloride Carbon Dioxide Anion Gap BUN Creatinine Est Cr Clr Drug Dosing Est GFR ( Amer) Est GFR (Non-Af Amer) BUN/Creatinine Ratio Glucose Calcium Phosphorus Magnesium Total Creatine Kinase 105 Troponin I C-Reactive Protein 1.53 H NT-Pro-B Natriuret Pep Procalcitonin Urine Color Urine Appearance Urine pH Ur Specific [place] Urine Protein Urine Glucose (UA) Urine Ketones Urine Blood Urine Nitrite Urine Bilirubin Urine Urobilinogen Ur Leukocyte Esterase IgE Rheumatoid Factor Pending Cycl Citrul Peptide IgG Pending REGINO Screen Pending Anti-Proteinase 3 Pending Anti-Myeloperoxidase Pending ANCA Pending Adenovirus (PCR) B. pertussis DNA (PCR) B.parapertussis DNA PCR C. pneumoniae DNA (PCR) Coronavirus OC43 (PCR) Coronavirus HKU1 (PCR) Coronavirus 229E (PCR) COVID-19 Eval Order SARS-CoV-2 (PCR) Coronavirus NL63 (PCR) Human Metapneumovir PCR Influenza Type A (PCR) Influenza Type B (PCR) L.pneumophila IgM Ab Mycoplasma pneumon IgG Mycoplasma pneumon IgM M. pneumoniae (PCR) Parainfluenza 1 (PCR) Parainfluenza 2 (PCR) Parainfluenza 3 (PCR) Parainfluenza 4 (PCR) RSV (PCR) Entero/Rhino (PCR) 03/27/21 03/27/21 03/27/21 14:00 14:00 15:00 WBC RBC Hgb Hct MCV MCH MCHC RDW Std Deviation RDW Coeff of [place] Plt Count MPV ESR Sodium Potassium Chloride Carbon Dioxide Anion Gap BUN Creatinine Est Cr Clr Drug Dosing Est GFR ( Amer) Est GFR (Non-Af Amer) BUN/Creatinine Ratio Glucose Calcium Phosphorus Magnesium Total Creatine Kinase Troponin I C-Reactive Protein NT-Pro-B Natriuret Pep Procalcitonin Urine Color Dark Yellow Urine Appearance Clear Urine pH 6.0 Ur Specific [place] 1.021 Urine Protein Negative Urine Glucose (UA) Negative Urine Ketones Trace H Urine Blood Negative Urine Nitrite Negative Urine Bilirubin Negative Urine Urobilinogen Negative Ur Leukocyte Esterase Negative IgE Rheumatoid Factor Cycl Citrul Peptide IgG REGINO Screen Anti-Proteinase 3 Anti-Myeloperoxidase ANCA Adenovirus (PCR) Not Detected B. pertussis DNA (PCR) Not Detected B.parapertussis DNA PCR Not Detected C. pneumoniae DNA (PCR) Not Detected Coronavirus OC43 (PCR) Not Detected Coronavirus HKU1 (PCR) Not Detected Coronavirus 229E (PCR) Not Detected COVID-19 Eval Order RESPNP at [facility] SARS-CoV-2 (PCR) Not Detected Coronavirus NL63 (PCR) Not Detected Human Metapneumovir PCR Not Detected Influenza Type A (PCR) Not Detected Influenza Type B (PCR) Not Detected L.pneumophila IgM Ab Mycoplasma pneumon IgG Mycoplasma pneumon IgM M. pneumoniae (PCR) Not Detected Parainfluenza 1 (PCR) Not Detected Parainfluenza 2 (PCR) Not Detected Parainfluenza 3 (PCR) Not Detected Parainfluenza 4 (PCR) Not Detected RSV (PCR) Not Detected Entero/Rhino (PCR) Not Detected 03/27/21 03/28/21 03/28/21 18:02 06:15 06:15 WBC 9.41 RBC 3.30 L Hgb 12.0 L Hct 35.9 L MCV 108.8 H MCH 36.4 H MCHC 33.4 RDW Std Deviation 54.8 H RDW Coeff of [place] 13.9 Plt Count 149 MPV 10.2 ESR Sodium 136 Potassium 4.3 Chloride 104 Carbon Dioxide 29 Anion Gap 3.0 BUN 17 Creatinine 0.95 Est Cr Clr Drug Dosing 67.5 Est GFR ( Amer) 83.7 Est GFR (Non-Af Amer) 72.2 BUN/Creatinine Ratio 17.4 Glucose 130 H Calcium 8.3 L Phosphorus 3.1 Magnesium 2.1 Total Creatine Kinase Troponin I 0.933 H* C-Reactive Protein NT-Pro-B Natriuret Pep 535 Procalcitonin Urine Color Urine Appearance Urine pH Ur Specific [place] Urine Protein Urine Glucose (UA) Urine Ketones Urine Blood Urine Nitrite Urine Bilirubin Urine Urobilinogen Ur Leukocyte Esterase IgE Rheumatoid Factor Cycl Citrul Peptide IgG REGINO Screen Anti-Proteinase 3 Anti-Myeloperoxidase ANCA Adenovirus (PCR) B. pertussis DNA (PCR) B.parapertussis DNA PCR C. pneumoniae DNA (PCR) Coronavirus OC43 (PCR) Coronavirus HKU1 (PCR) Coronavirus 229E (PCR) COVID-19 Eval Order SARS-CoV-2 (PCR) Coronavirus NL63 (PCR) Human Metapneumovir PCR Influenza Type A (PCR) Influenza Type B (PCR) L.pneumophila IgM Ab Mycoplasma pneumon IgG Mycoplasma pneumon IgM M. pneumoniae (PCR) Parainfluenza 1 (PCR) Parainfluenza 2 (PCR) Parainfluenza 3 (PCR) Parainfluenza 4 (PCR) RSV (PCR) Entero/Rhino (PCR) Medications Administered Current Inpatient Medications Acetaminophen (Acetaminophen 325 Mg Tab) 650 mg PO Q4H PRN PRN Reason: Pain or Fever Stop: 04/26/21 01:16 Aspirin (Aspirin 81 Mg Ectab) 81 mg PO QAM [facility] Stop: 04/27/21 08:59 Last Admin: 03/28/21 10:24 Dose: 81 mg Documented by: Baclofen (Baclofen 10 Mg Tab) 10 mg PO BID PRN PRN Reason: pain/spasm Stop: 04/26/21 01:16 Carbidopa/Levodopa (Carbidopa/Levodopa 50/200mg Ext Rel Tab) 1 tab PO TID [facility] Stop: 04/26/21 08:59 Last Admin: 03/28/21 10:06 Dose: 1 tab Documented by: Citalopram Hydrobromide (Citalopram 20 Mg Tab) 10 mg PO HS [facility] Stop: 04/26/21 20:59 Last Admin: 03/27/21 21:12 Dose: 10 mg Documented by: Doxycycline Hyclate (Doxycycline Hyclate 100 Mg Cap) 100 mg PO BID [facility] Stop: 04/03/21 01:16 Last Admin: 03/28/21 10:06 Dose: 100 mg Documented by: Enoxaparin Sodium (Enoxaparin Inj 40 Mg/0.4 Ml Syr) 40 mg SQ Q24H [facility] Stop: 04/26/21 08:59 Last Admin: 03/28/21 10:08 Dose: 40 mg Documented by: Entacapone (Entacapone 200 Mg Tab) 200 mg PO TID [facility] Stop: 04/26/21 08:59 Last Admin: 03/28/21 10:05 Dose: 200 mg Documented by: Gabapentin (Gabapentin 300 Mg Cap) 300 mg PO HS [facility] Stop: 04/26/21 20:59 Last Admin: 03/27/21 21:13 Dose: 300 mg Documented by: Guaifenesin (Guaifenesin 600 Mg Tabcr) 600 mg PO Q12 [facility] Stop: 04/26/21 08:59 Last Admin: 03/28/21 10:05 Dose: 600 mg Documented by: Ipratropium [place] (Ipratropium [place] Neb Soln 0.02% 2.5 Ml Vial) 0.5 mg INH Q6R [facility] Stop: 04/26/21 01:16 Last Admin: 03/28/21 07:20 Dose: 0.5 mg Documented by: Levalbuterol HCl (Levalbuterol 1.25mg/0.5ml Neb) 1.25 mg INH Q6R [facility] Stop: 04/26/21 01:16 Last Admin: 03/28/21 07:20 Dose: 1.25 mg Documented by: Nitroglycerin (Nitroglycerin Sl 0.4 Mg/Tab Tab) 0.4 mg SL UD PRN PRN Reason: Chest Pain Stop: 04/26/21 01:16 Ondansetron HCl (Ondansetron Inj 2 Mg/Ml 2 Ml Vial) 4 mg IV Q6H PRN PRN Reason: Nausea Stop: 04/26/21 01:16 Pramipexole Dihydrochloride (Pramipexole Dihydrochlo 0.25 Mg Tab) 0.125 mg PO TID [facility] Stop: 04/26/21 08:59 Last Admin: 03/28/21 10:06 Dose: 0.125 mg Documented by: Prednisone (Prednisone 20 Mg Tab) 20 mg PO DAILY [facility] Stop: 04/26/21 13:59 Last Admin: 03/28/21 10:05 Dose: 20 mg Documented by:
--- NOTE | 2021-03-28 18:36 | XRay Report ---
XR chest 1V portable CLINICAL HISTORY: Aspiration. COMPARISON STUDY: Chest radiograph and chest CT March 26, 2021. FINDINGS: Lung volumes are mildly diminished. This is unchanged. Cardiomegaly is unchanged. Mild airs pace opacities within the lungs are similar to prior exam. There is no pneumothorax or pleural effusi on. The appearance of the chest is unchanged. IMPRESSION: No change in interstitial thickening and mild bilateral opacities which favor an infectio us process. ACT 112: Negative or not required by law. Electronically signed by: Rodrigo Laguna M.D. 03/28/2021 6:35 PM
[2021-03-28] MEDS ORDERED: PIPERACILL/TAZOBAC CONSULT ACTIVE PRN (19:17)
[2021-03-28] MEDS ORDERED: PIPERACILLIN/TAZOBACTAM 3.375 GM in DEXTROSE 5% 100 ML IV ONE (19:30)
[2021-03-28] MEDS: GABAPENTIN 300 MG CAP PO SCH (20:35)
[2021-03-28] MEDS: CITALOPRAM 20 MG TAB PO SCH (20:37)
[2021-03-29] MEDS: IPRATROPIUM BROMIDE NEB SOLN 0.02% 2.5 ML VIAL INH SCH ×4 (00:28→19:45)
[2021-03-29] MEDS: LEVALBUTEROL 1.25MG/0.5ML NEB INH SCH ×4 (00:28→19:45)
[2021-03-29] MEDS: PIPERACILLIN/TAZOBACTAM 3.375 GM in DEXTROSE 5% 100 ML IV SCH ×3 (02:14→17:23)
[2021-03-29] MEDS: ASPIRIN 81 MG ECTAB PO SCH (08:17)
[2021-03-29] MEDS: ENTACAPONE 200 MG TAB PO SCH ×3 (08:18→21:10)
[2021-03-29] MEDS: DOXYCYCLINE HYCLATE 100 MG CAP PO SCH ×2 (08:18→21:09)
[2021-03-29] MEDS: guaiFENesin 600 MG TABCR PO SCH ×2 (08:18→21:09)
[2021-03-29] MEDS: ENOXAPARIN INJ 40 MG/0.4 ML SYR SQ SCH (08:18)
[2021-03-29] MEDS: CARBIDOPA/LEVODOPA 50/200MG EXT REL TAB PO SCH ×3 (08:18→21:09)
[2021-03-29] MEDS: predniSONE 20 MG TAB PO SCH (08:18)
[2021-03-29] MEDS: PRAMIPEXOLE DIHYDROCHLO 0.25 MG TAB PO SCH ×3 (08:19→21:10)
--- NOTE | 2021-03-29 13:26 | Cardiology Progress Note ---
Date of Service March 29, 2021 Assessment & Plan (1) Elevated troponin: (2) Respiratory failure with hypoxia: (3) Cough: (4) Viral pneumonia: Plan: The patient is slowly improving. He is clinically stable. I would have no additional recommendations at this time. Admission and Anticipated Discharge Date Admission Date: March 26, 2021 Subjective The patient is currently off oxygen and feels improved. Review of Systems Review of Systems: Review of Systems: See HPI for pertinent positives. All other 10 point review of systems are negative. Physical Exam Physical Exam: General: no acute distress and stated age Head: normocephalic, no masses, lesions, tenderness or abnormalities Eyes: conjunctiva are pink and non-injected, sclera clear Neck: supple, no adenopathy, no bruits, normal jugular venous pulse, no hepatojugular reflux Chest: normal shape and normal respiratory effort Lungs: clear to auscultation and percussion Cardiac Exam: - regular rate & rhythm, no murmurs gallops or rubs - normal S1, normal S2 Pulses: 2(+) throughout Abdomen: abdomen soft, non-tender, no abnormal masses and no hepatosplenomegaly Musculoskeletal: no gait disturbance, no joint inflammation, no deforming arthritis Extremities: no edema and no cyanosis Neuro: grossly normal exam Results & Data ([facility]) Vital Signs (Past 12 Hours) Vital Signs Temp Pulse Pulse Resp BP BP Pulse Ox 03/29/21 12:59 71 18 93 03/29/21 11:27 36.7 C 91 H 20 148/77 H 96 03/29/21 08:46 36.4 C L 84 18 148/76 H 98 03/29/21 07:28 83 03/29/21 07:27 71 18 98 03/29/21 04:50 36.5 C 82 18 133/69 97 Medications Administered Current Inpatient Medications Acetaminophen (Acetaminophen 325 Mg Tab) 650 mg PO Q4H PRN PRN Reason: Pain or Fever Stop: 04/26/21 01:16 Aspirin (Aspirin 81 Mg Ectab) 81 mg PO QAM [facility] Stop: 04/27/21 08:59 Last Admin: 03/29/21 08:17 Dose: 81 mg Documented by: Baclofen (Baclofen 10 Mg Tab) 10 mg PO BID PRN PRN Reason: pain/spasm Stop: 04/26/21 01:16 Carbidopa/Levodopa (Carbidopa/Levodopa 50/200mg Ext Rel Tab) 1 tab PO TID [facility] Stop: 04/26/21 08:59 Last Admin: 03/29/21 08:18 Dose: 1 tab Documented by: Citalopram Hydrobromide (Citalopram 20 Mg Tab) 10 mg PO HS [facility] Stop: 04/26/21 20:59 Last Admin: 03/28/21 20:37 Dose: 10 mg Documented by: Doxycycline Hyclate (Doxycycline Hyclate 100 Mg Cap) 100 mg PO BID [facility] Stop: 04/03/21 01:16 Last Admin: 03/29/21 08:18 Dose: 100 mg Documented by: Enoxaparin Sodium (Enoxaparin Inj 40 Mg/0.4 Ml Syr) 40 mg SQ Q24H [facility] Stop: 04/26/21 08:59 Last Admin: 03/29/21 08:18 Dose: 40 mg Documented by: Entacapone (Entacapone 200 Mg Tab) 200 mg PO TID [facility] Stop: 04/26/21 08:59 Last Admin: 03/29/21 08:18 Dose: 200 mg Documented by: Gabapentin (Gabapentin 300 Mg Cap) 300 mg PO HS [facility] Stop: 04/26/21 20:59 Last Admin: 03/28/21 20:35 Dose: 300 mg Documented by: Guaifenesin (Guaifenesin 600 Mg Tabcr) 600 mg PO Q12 [facility] Stop: 04/26/21 08:59 Last Admin: 03/29/21 08:18 Dose: 600 mg Documented by: Piperacillin Sod/Tazobactam (Sod 3.375 gm/ Dextrose) 115 mls @ 28.75 mls/hr IV Q8H [facility]; Protocol Stop: 04/05/21 01:59 Last Admin: 03/29/21 09:50 Dose: 28.8 mls/hr Documented by: Ipratropium [place] (Ipratropium [place] Neb Soln 0.02% 2.5 Ml Vial) 0.5 mg INH Q6R [facility] Stop: 04/26/21 01:16 Last Admin: 03/29/21 12:58 Dose: 0.5 mg Documented by: Levalbuterol HCl (Levalbuterol 1.25mg/0.5ml Neb) 1.25 mg INH Q6R [facility] Stop: 04/26/21 01:16 Last Admin: 03/29/21 12:58 Dose: 1.25 mg Documented by: Miscellaneous Information (Piperacill/Tazobac Consult Active) 1 ea N/A UD PRN PRN Reason: Consult Stop: 04/27/21 19:16 Nitroglycerin (Nitroglycerin Sl 0.4 Mg/Tab Tab) 0.4 mg SL UD PRN PRN Reason: Chest Pain Stop: 04/26/21 01:16 Ondansetron HCl (Ondansetron Inj 2 Mg/Ml 2 Ml Vial) 4 mg IV Q6H PRN PRN Reason: Nausea Stop: 04/26/21 01:16 Pramipexole Dihydrochloride (Pramipexole Dihydrochlo 0.25 Mg Tab) 0.125 mg PO TID [facility] Stop: 04/26/21 08:59 Last Admin: 03/29/21 08:19 Dose: 0.125 mg Documented by: Prednisone (Prednisone 20 Mg Tab) 20 mg PO DAILY [facility] Stop: 04/26/21 13:59 Last Admin: 03/29/21 08:18 Dose: 20 mg Documented by:
--- NOTE | 2021-03-29 13:28 | Hospitalist Progress Note ---
Date of Service March 29, 2021 Assessment & Plan (1) Respiratory failure with hypoxia: (2) Elevated troponin: Plan: This is an 85-year-old male, presents with ongoing respiratory illness. 1. Acute respiratory failure with hypoxia Respiratory illness with cough, fever and soaking sweats. When pt came in, he was tachypneic, with oxygen headache and tachypnea improved, then resting comfortably on 2L. He also had significant chest pain before started on oxygen. Then resting comfortably, using 2 L of nasal cannula. CTA of chest ground glass opacities, possible viral pneumonia. No PE. COVID test is negative and he has completed vaccination with a booster shot. RSV and flu - negative Biofire - negative Legionella, Mycoplasma - pending The patient also has underlying interstitial lung disease. Continue steroids and nebs and p.o. doxycycline and monitor. Monitor the response. 2 step prior to discharge. Pulmonary medicine also consulted - patient may have some degree of chronic interstitial lung disease. Current CT also w/ pattern concerning for an infectious etiology. Viral illnesses are possible. Alternative etiologies including atypical pulmonary edema would be on the list especially given his elevated troponin. BNP and pro calcitonin were negative. Recommend tapering his prednisone over the next 5 days. Intermittent aspiration would also be a potential consideration given his neurological disease as well as potential vocal cord/dysphonia. Await results of his serological evaluation. Serological evaluation will be conducted for poss. ILD. Needs repeat ct chest in 3 months to rule out underlying lung nodule. Follow up in pulmonary clinic. Aspiration - 03/28 -patient had an choking/aspiration episode while in the hospital He was able to cough pieces of food out Reports this is quite frequent for him, on daily basis Will make patient n.p.o. for now obtained chest x-ray, cover with Michellesyn empirically Speech eval - plan for video swallow study this PM (03/29) 2. Elevated troponin Initial troponin negative in ED Currently chest pain-free, reports chest pain ceased after he got oxygen in ED Repeat troponin elevated Likely demand ischemia secondary to above Echo ordered -LV is normal in size. EF 55 to 60%. LV wall motion is normal. RV systolic function is normal. Cardiology was consulted - believe elev. troponin secondary to pulmonary issues/ pneumonia 2. Parkinson's. Continue his home medications of carbidopa/levodopa and entacapone. 3. Depression: Continue citalopram. DVT prophylaxis: Lovenox. DISPOSITION: Closely monitor in the [employer] tele. Admission and Anticipated Discharge Date Admission Date: March 26, 2021 Subjective Patient seen in follow-up of shortness of breath, chest pain Yesterday patient had a choking episode Currently patient is lying in bed, in no acute distress, he is actually on room air Denies any chest pain, abdominal pain, nausea or vomiting He does not feel much short of breath Asked me to update his daughter, who is his POA, Megan (she is RN as well), her phone number is We will have Megan's phone number added to the computer. Plan for video swallow study this afternoon. Review of Systems Review of Systems: All systems reviewed & are unremarkable except as noted in Subjective Physical Exam Physical Exam: GENERAL: elderly frail male, not in acute distress, on RA HEENT: NC/AT, EOMI, PERRL NECK: No JVD, no neck masses. CARDIOVASCULAR: S1 and S2 heard. Regular rate and rhythm. No murmur, no gallop. RESPIRATORY: No accessory muscle use. Mild rhonchi, no wheezing ABDOMEN: Soft, bowel sounds present, nontender, no distention. NEURO: Alert oriented, answering questions appropriately, no facial asymmetry, speech fluent, moves extremities EXTREMITIES: No edema, no erythema. Results & Data Results & Data ([facility]) Vital Signs (Past 12 Hours) Vital Signs Temp Pulse Pulse Resp BP BP Pulse Ox 03/29/21 12:59 71 18 93 03/29/21 11:27 36.7 C 91 H 20 148/77 H 96 03/29/21 08:46 36.4 C L 84 18 148/76 H 98 03/29/21 07:28 83 03/29/21 07:27 71 18 98 03/29/21 04:50 36.5 C 82 18 133/69 97 Medications Administered Current Inpatient Medications Acetaminophen (Acetaminophen 325 Mg Tab) 650 mg PO Q4H PRN PRN Reason: Pain or Fever Stop: 04/26/21 01:16 Aspirin (Aspirin 81 Mg Ectab) [facility] [place] Stop: 04/27/21 08:59 Last Admin: 03/29/21 08:17 Dose: 81 mg Documented by: Baclofen (Baclofen 10 Mg Tab) 10 mg PO BID PRN PRN Reason: pain/spasm Stop: 04/26/21 01:16 Carbidopa/Levodopa (Carbidopa/Levodopa 50/200mg Ext Rel Tab) 1 tab PO TID [facility] Stop: 04/26/21 08:59 Last Admin: 03/29/21 08:18 Dose: 1 tab Documented by: Citalopram Hydrobromide (Citalopram 20 Mg Tab) 10 mg PO HS [facility] Stop: 04/26/21 20:59 Last Admin: 03/28/21 20:37 Dose: 10 mg Documented by: Doxycycline Hyclate (Doxycycline Hyclate 100 Mg Cap) 100 mg PO BID [facility] Stop: 04/03/21 01:16 Last Admin: 03/29/21 08:18 Dose: 100 mg Documented by: Enoxaparin Sodium (Enoxaparin Inj 40 Mg/0.4 Ml Syr) 40 mg SQ Q24H [facility] Stop: 04/26/21 08:59 Last Admin: 03/29/21 08:18 Dose: 40 mg Documented by: Entacapone (Entacapone 200 Mg Tab) 200 mg PO TID [facility] Stop: 04/26/21 08:59 Last Admin: 03/29/21 08:18 Dose: 200 mg Documented by: Gabapentin (Gabapentin 300 Mg Cap) 300 mg PO HS [facility] Stop: 04/26/21 20:59 Last Admin: 03/28/21 20:35 Dose: 300 mg Documented by: Guaifenesin (Guaifenesin 600 Mg Tabcr) 600 mg PO Q12 [facility] Stop: 04/26/21 08:59 Last Admin: 03/29/21 08:18 Dose: 600 mg Documented by: Piperacillin Sod/Tazobactam (Sod 3.375 gm/ Dextrose) 115 mls @ 28.75 mls/hr IV Q8H [facility]; Protocol Stop: 04/05/21 01:59 Last Admin: 03/29/21 09:50 Dose: 28.8 mls/hr Documented by: Ipratropium [place] (Ipratropium [place] Neb Soln 0.02% 2.5 Ml Vial) 0.5 mg INH Q6R [facility] Stop: 04/26/21 01:16 Last Admin: 03/29/21 12:58 Dose: 0.5 mg Documented by: Levalbuterol HCl (Levalbuterol 1.25mg/0.5ml Neb) 1.25 mg INH Q6R [facility] Stop: 04/26/21 01:16 Last Admin: 03/29/21 12:58 Dose: 1.25 mg Documented by: Miscellaneous Information (Piperacill/Tazobac Consult Active) 1 ea N/A UD PRN PRN Reason: Consult Stop: 04/27/21 19:16 Nitroglycerin (Nitroglycerin Sl 0.4 Mg/Tab Tab) 0.4 mg SL UD PRN PRN Reason: Chest Pain Stop: 04/26/21 01:16 Ondansetron HCl (Ondansetron Inj 2 Mg/Ml 2 Ml Vial) 4 mg IV Q6H PRN PRN Reason: Nausea Stop: 04/26/21 01:16 Pramipexole Dihydrochloride (Pramipexole Dihydrochlo 0.25 Mg Tab) 0.125 mg PO TID [facility] Stop: 04/26/21 08:59 Last Admin: 03/29/21 08:19 Dose: 0.125 mg Documented by: Prednisone (Prednisone 20 Mg Tab) 20 mg PO DAILY [facility] Stop: 04/26/21 13:59 Last Admin: 03/29/21 08:18 Dose: 20 mg Documented by:
[2021-03-29 14:03] LABS: Hematocrit (blood only) 36.4 % (42-52); Mean Corpuscular Hemoglobin 36.1 pg (25-34); Mean Corpuscular Volume 109.6 fL (80-100); Platelet Count 138 K/uL (130-400); RDW Standard Deviation 56.8 fL (36.4-46.3); Red Blood Count 3.32 M/uL (4.7-6.1); White Blood Count 7.32 K/uL (4.8-10.8)
[2021-03-29 14:23] LABS: BUN Creatinine Ratio 17.9 (10-20); Calcium 8.5 mg/dl (8.5-10.1); Est GFR (African American) 79.6 ml/min; Est GFR (Non-African American) 68.7 ml/min; Potassium 3.7 mmol/L (3.5-5.1)
--- NOTE | 2021-03-29 15:47 | Fluoroscopy Report ---
MODIFIED BARIUM SWALLOW CLINICAL HISTORY: r/o aspiration COMPARISON STUDY: None. FLUOROSCOPY TIME: 2 minutes. TECHNIQUE: A modified barium swallow was performed in conjunction with Speech Pathology. The patient ingested varying consistencies of barium containing material. Video fluoroscopy was performed. FINDINGS: Swallowing mechanism was intact. No tracheal aspiration was identified. Minimal residuals w ere noted with several consistencies. Epiglottic inversion was normal. Laryngeal elevation was normal . IMPRESSION: 1. No tracheal aspiration identified. Intact swallowing mechanism. 2. Full recommendations by speech pathology to follow. ACT 112: Negative or not required by law. Electronically signed by: Rodrigo Laguna M.D. 03/29/2021 3:46 PM
--- NOTE | 2021-03-29 16:08 | Electrocardiogram Report ---
Test Reason : Blood Pressure : / mmHG Vent. Rate : 085 BPM Atrial Rate : 085 BPM P-R Int : 180 ms QRS Dur : 088 ms QT Int : 396 ms P-R-T Axes : 044 -46 013 degrees QTc Int : 471 ms Normal sinus rhythm Left anterior fascicular block Abnormal ECG When compared with ECG of 26-MAR-2021 15:24, No significant change was found Confirmed by Bharath Carr ([id number]) on 03/29/2021 4:07:51 PM Referred By: Ольга Mitchell Confirmed By:Bharath Carr
[2021-03-29] MEDS: CITALOPRAM 20 MG TAB PO SCH (21:08)
[2021-03-29] MEDS: GABAPENTIN 300 MG CAP PO SCH (21:09)
[2021-03-30] MEDS: IPRATROPIUM BROMIDE NEB SOLN 0.02% 2.5 ML VIAL INH SCH ×3 (00:19→13:37)
[2021-03-30] MEDS: LEVALBUTEROL 1.25MG/0.5ML NEB INH SCH ×3 (00:20→13:37)
[2021-03-30] MEDS: PIPERACILLIN/TAZOBACTAM 3.375 GM in DEXTROSE 5% 100 ML IV SCH ×2 (02:12→10:47)
[2021-03-30 07:24] LABS: Hematocrit (blood only) 35.6 % (42-52); Hemoglobin 11.7 g/dL (14.0-18.0); Mean Corpuscular Hemoglobin 36.3 pg (25-34); Mean Corpuscular Hgb Conc 32.9 g/dL (32-36); Mean Corpuscular Volume 110.6 fL (80-100); Mean Platelet Volume 9.3 fL (7.4-10.4); Platelet Count 127 K/uL (130-400); Red Blood Count 3.22 M/uL (4.7-6.1); White Blood Count 5.93 K/uL (4.8-10.8)
[2021-03-30 07:52] LABS: Calcium 8.6 mg/dl (8.5-10.1); Creatinine Clr Calc Pharmacy 62.1 ml/min; Est GFR (African American) 75.9 ml/min; Est GFR (Non-African American) 65.5 ml/min; Magnesium 2.1 mg/dl (1.8-2.4); Potassium 4.1 mmol/L (3.5-5.1)
[2021-03-30 07:53] LABS: Phosphorus 3.4 mg/dl (2.5-4.9)
[2021-03-30] MEDS: PRAMIPEXOLE DIHYDROCHLO 0.25 MG TAB PO SCH ×2 (08:34→15:14)
[2021-03-30] MEDS: ENOXAPARIN INJ 40 MG/0.4 ML SYR SQ SCH (08:35)
[2021-03-30] MEDS: DOXYCYCLINE HYCLATE 100 MG CAP PO SCH (08:35)
[2021-03-30] MEDS: predniSONE 20 MG TAB PO SCH (08:35)
[2021-03-30] MEDS: ENTACAPONE 200 MG TAB PO SCH ×2 (08:35→15:14)
[2021-03-30] MEDS: ASPIRIN 81 MG ECTAB PO SCH (08:35)
[2021-03-30] MEDS: CARBIDOPA/LEVODOPA 50/200MG EXT REL TAB PO SCH ×2 (08:35→15:15)
[2021-03-30] MEDS: guaiFENesin 600 MG TABCR PO SCH (08:35)
--- NOTE | 2021-03-30 11:00 | Hospitalist Progress Note ---
Date of Service March 30, 2021 Assessment & Plan (1) Respiratory failure with hypoxia: (2) Elevated troponin: Plan: This is an 85-year-old male, presents with ongoing respiratory illness. 1. Acute respiratory failure with hypoxia Respiratory illness with cough, fever and soaking sweats. When pt came in, he was tachypneic, with oxygen headache and tachypnea improved, then resting comfortably on 2L. He also had significant chest pain before started on oxygen. Then resting comfortably, using 2 L of nasal cannula. CTA of chest ground glass opacities, possible viral pneumonia. No PE. COVID test is negative and he has completed vaccination with a booster shot. RSV and flu - negative Biofire - negative Legionella, Mycoplasma - pending The patient also has underlying interstitial lung disease. Continue steroids and nebs and p.o. doxycycline and monitor. Monitor the response. 2 step prior to discharge. Pulmonary medicine also consulted - patient may have some degree of chronic interstitial lung disease. Current CT also w/ pattern concerning for an infectious etiology. Viral illnesses are possible. Alternative etiologies including atypical pulmonary edema would be on the list especially given his elevated troponin. BNP and pro calcitonin were negative. Recommend tapering his prednisone over the next 5 days. Intermittent aspiration would also be a potential consideration given his neurological disease as well as potential vocal cord/dysphonia. Await results of his serological evaluation. Serological evaluation will be conducted for poss. ILD. Needs repeat ct chest in 3 months to rule out underlying lung nodule. Follow up in pulmonary clinic. 2 step study obtained, and also discussed with speech therapist. Will need co ntinuous 2 L with ambulation or eating Aspiration - 03/28 -patient had an choking/aspiration episode while in the hospital He was able to cough pieces of food out Reports this is quite frequent for him, on daily basis Will make patient n.p.o. for now obtained chest x-ray, cover with Zosyn empirically Speech eval - Video swallow study (03/29) -no evidence of bolus or tension in the esophagus, complete clearance, esophageal coating Recommendations, aspiration precautions in the discharge packet 2. Elevated troponin Initial troponin negative in ED Currently chest pain-free, reports chest pain ceased after he got oxygen in ED Repeat troponin elevated Likely demand ischemia secondary to above Echo ordered -LV is normal in size. EF 55 to 60%. LV wall motion is normal. RV systolic function is normal. Cardiology was consulted - believe elev. troponin secondary to pulmonary issues/ pneumonia 2. Parkinson's. Continue his home medications of carbidopa/levodopa and entacapone. 3. Depression: Continue citalopram. DVT prophylaxis: Lovenox. DISPOSITION: Pending PT eval Admission and Anticipated Discharge Date Admission Date: March 26, 2021 Subjective Patient seen in follow-up of shortness of breath, chest pain Patient is sitting up in chair, in no acute distress, he is actually on room air Denies any chest pain, shortness of breath, abdominal pain, nausea or vomiting Says he is feeling quite well, and he is inquiring about going home 2 step study obtained, will need oxygen with ambulation and eating Daughter, Megan who is his POA, phone number is Review of Systems Review of Systems: All systems reviewed & are unremarkable except as noted in Subjective Physical Exam Physical Exam: GENERAL: elderly frail male, not in acute distress, on RA HEENT: NC/AT, EOMI, PERRL NECK: No JVD, no neck masses. CARDIOVASCULAR: S1 and S2 heard. Regular rate and rhythm. No murmur, no gallop. RESPIRATORY: No accessory muscle use. Mild rhonchi, no wheezing ABDOMEN: Soft, bowel sounds present, nontender, no distention. NEURO: Alert oriented, answering questions appropriately, no facial asymmetry, speech fluent, moves extremities EXTREMITIES: No edema, no erythema. Results & Data Results & Data ([facility]) Vital Signs (Past 12 Hours) Vital Signs Temp Pulse Pulse Pulse Pulse Pulse Pulse 03/30/21 09:30 91 H 93 H 92 H 78 03/30/21 08:26 36.5 C 85 03/30/21 07:37 80 03/30/21 07:22 73 03/30/21 05:56 36.4 C L 79 03/30/21 00:41 36.6 C 84 03/30/21 00:20 77 03/29/21 23:44 83 Resp Resp Resp Resp Resp BP Pulse Ox 03/30/21 09:30 20 22 18 18 03/30/21 08:26 20 146/82 H 98 03/30/21 07:37 18 96 03/30/21 07:22 03/30/21 05:56 18 110/71 98 03/30/21 00:41 18 140/74 92 03/30/21 00:20 20 96 03/29/21 23:44 Pulse Ox Pulse Ox Pulse Ox Pulse Ox 03/30/21 09:30 94 86 L 98 93 03/30/21 08:26 03/30/21 07:37 03/30/21 07:22 03/30/21 05:56 03/30/21 00:41 03/30/21 00:20 03/29/21 23:44 Laboratory Results 03/30/21 03/30/21 03/29/21 Range/Units 07:03 07:03 13:42 WBC 5.93 (4.8-10.8) K/uL RBC 3.22 L (4.7-6.1) M/uL Hgb 11.7 L (14.0-18.0) g/dL Hct 35.6 L (42-52) % MCV 110.6 H (80-100) fL MCH 36.3 H (25-34) pg MCHC 32.9 (32-36) g/dL RDW Std Deviation 56.0 H (36.4-46.3) fL RDW Coeff of [place] 14.0 (11.5-14.5) % Plt Count 127 L (130-400) K/uL MPV 9.3 (7.4-10.4) fL Sodium 140 138 (136-145) mmol/L Potassium 4.1 3.7 (3.5-5.1) mmol/L Chloride 106 105 (98-107) mmol/L Carbon Dioxide 32 26 (21-32) mmol/L Anion Gap 2.0 L 7.0 (3-11) BUN 15 18 (7-18) mg/dl Creatinine 1.03 0.99 (0.6-1.4) mg/dl Est Cr Clr Drug Dosing 62.1 65.0 ml/min Est GFR ( Amer) 75.9 79.6 ml/min Est GFR (Non-Af Amer) 65.5 68.7 ml/min BUN/Creatinine Ratio 15.0 17.9 (10-20) Glucose 96 133 H (70-99) mg/dl Calcium 8.6 8.5 (8.5-10.1) mg/dl Phosphorus 3.4 3.0 (2.5-4.9) mg/dl Magnesium 2.1 2.0 (1.8-2.4) mg/dl 03/29/21 Range/Units 13:42 WBC 7.32 (4.8-10.8) K/uL RBC 3.32 L (4.7-6.1) M/uL Hgb 12.0 L (14.0-18.0) g/dL Hct 36.4 L (42-52) % MCV 109.6 H (80-100) fL MCH 36.1 H (25-34) pg MCHC 33.0 (32-36) g/dL RDW Std Deviation 56.8 H (36.4-46.3) fL RDW Coeff of [place] 14.0 (11.5-14.5) % Plt Count 138 (130-400) K/uL MPV 10.0 (7.4-10.4) fL Sodium (136-145) mmol/L Potassium (3.5-5.1) mmol/L Chloride (98-107) mmol/L Carbon Dioxide (21-32) mmol/L Anion Gap (3-11) BUN (7-18) mg/dl Creatinine (0.6-1.4) mg/dl Est Cr Clr Drug Dosing ml/min Est GFR ( Amer) ml/min Est GFR (Non-Af Amer) ml/min BUN/Creatinine Ratio (10-20) Glucose (70-99) mg/dl Calcium (8.5-10.1) mg/dl Phosphorus (2.5-4.9) mg/dl Magnesium (1.8-2.4) mg/dl Medications Administered Current Inpatient Medications Acetaminophen (Acetaminophen 325 Mg Tab) 650 mg PO Q4H PRN PRN Reason: Pain or Fever Stop: 04/26/21 01:16 Aspirin (Aspirin 81 Mg Ectab) 81 mg PO QAM [facility] Stop: 04/27/21 08:59 Last Admin: 03/30/21 08:35 Dose: 81 mg Documented by: Baclofen (Baclofen 10 Mg Tab) 10 mg PO BID PRN PRN Reason: pain/spasm Stop: 04/26/21 01:16 Carbidopa/Levodopa (Carbidopa/Levodopa 50/200mg Ext Rel Tab) 1 tab PO TID [facility] Stop: 04/26/21 08:59 Last Admin: 03/30/21 08:35 Dose: 1 tab Documented by: Citalopram Hydrobromide (Citalopram 20 Mg Tab) 10 mg PO HS [facility] Stop: 04/26/21 20:59 Last Admin: 03/29/21 21:08 Dose: 10 mg Documented by: Doxycycline Hyclate (Doxycycline Hyclate 100 Mg Cap) 100 mg PO BID [facility] Stop: 04/03/21 01:16 Last Admin: 03/30/21 08:35 Dose: 100 mg Documented by: Enoxaparin Sodium (Enoxaparin Inj 40 Mg/0.4 Ml Syr) 40 mg SQ Q24H [facility] Stop: 04/26/21 08:59 Last Admin: 03/30/21 08:35 Dose: 40 mg Documented by: Entacapone (Entacapone 200 Mg Tab) 200 mg PO TID [facility] Stop: 04/26/21 08:59 Last Admin: 03/30/21 08:35 Dose: 200 mg Documented by: Gabapentin (Gabapentin 300 Mg Cap) 300 mg PO HS [facility] Stop: 04/26/21 20:59 Last Admin: 03/29/21 21:09 Dose: 300 mg Documented by: Guaifenesin (Guaifenesin 600 Mg Tabcr) 600 mg PO Q12 [facility] Stop: 04/26/21 08:59 Last Admin: 03/30/21 08:35 Dose: 600 mg Documented by: Piperacillin Sod/Tazobactam (Sod 3.375 gm/ Dextrose) 115 mls @ 28.75 mls/hr IV Q8H [facility]; Protocol Stop: 04/05/21 01:59 Last Admin: 03/30/21 10:47 Dose: 28.8 mls/hr Documented by: Ipratropium [place] (Ipratropium [place] Neb Soln 0.02% 2.5 Ml Vial) 0.5 mg INH Q6R [facility] Stop: 04/26/21 01:16 Last Admin: 03/30/21 07:37 Dose: 0.5 mg Documented by: Levalbuterol HCl (Levalbuterol 1.25mg/0.5ml Neb) 1.25 mg INH Q6R [facility] Stop: 04/26/21 01:16 Last Admin: 03/30/21 07:37 Dose: 1.25 mg Documented by: Miscellaneous Information (Piperacill/Tazobac Consult Active) 1 ea N/A UD PRN PRN Reason: Consult Stop: 04/27/21 19:16 Nitroglycerin (Nitroglycerin Sl 0.4 Mg/Tab Tab) 0.4 mg SL UD PRN PRN Reason: Chest Pain Stop: 04/26/21 01:16 Ondansetron HCl (Ondansetron Inj 2 Mg/Ml 2 Ml Vial) 4 mg IV Q6H PRN PRN Reason: Nausea Stop: 04/26/21 01:16 Last Admin: 03/29/21 17:56 Dose: 4 mg Documented by: Pramipexole Dihydrochloride (Pramipexole Dihydrochlo 0.25 Mg Tab) 0.125 mg PO TID [facility] Stop: 04/26/21 08:59 Last Admin: 03/30/21 08:34 Dose: 0.125 mg Documented by: Prednisone (Prednisone 20 Mg Tab) 20 mg PO DAILY [facility] Stop: 04/26/21 13:59 Last Admin: 03/30/21 08:35 Dose: 20 mg Documented by:
--- NOTE | 2021-03-30 11:23 | Cardiology Progress Note ---
Date of Service March 30, 2021 Assessment & Plan (1) Elevated troponin: (2) Respiratory failure with hypoxia: (3) Cough: (4) Viral pneumonia: Plan: No active cardiac component at this time. We will start PPI and H2 alix for indigestion. No further cardiac testing intervention necessary at this time. Okay to DC telemetry. Admission and Anticipated Discharge Date Admission Date: March 26, 2021 Subjective Patient seen and examined, chart reviewed. Patient states he has had indigestion and vomiting with most recent meals. But denies chest pain, worsening shortness of breath, palpitations, lightheadedness or dizziness. He states his breathing has improved since admission and is now off oxygen. Telemetry reviewed: Normal sinus rhythm without arrhythmia. Review of Systems Review of Systems: All systems reviewed & are unremarkable except as noted in HPI & below Physical Exam Physical Exam: General: Awake, alert and oriented x 3. No acute distress. HEENT: Normocephalic, atraumatic. Pupils equal, round and reactive to light and accommodation. Extraocular muscles are intact. Anicteric sclera. Moist mucous membranes. Neck: No JVD. No bruit. Cardiovascular: Regular. Positive S-4. Normal S-1 and S-2. No S-3. No murmurs or rubs. Pulmonary: Clear to auscultation B/L. No rales, rhonchi or wheezing Abdomen: Bowel sounds x 4, soft. No rebound, guarding or tenderness. No organomegaly. Extremities: No clubbing, cyanosis or edema. +2 pedal pulses bilaterally. Skin: Warm and dry. Results & Data ([facility]) Vital Signs (Past 12 Hours) Vital Signs Temp Pulse Pulse Pulse Pulse Pulse Pulse 03/30/21 09:30 91 H 93 H 92 H 78 03/30/21 08:26 36.5 C 85 03/30/21 07:37 80 03/30/21 07:22 73 03/30/21 05:56 36.4 C L 79 03/30/21 00:41 36.6 C 84 03/30/21 00:20 77 03/29/21 23:44 83 Resp Resp Resp Resp Resp BP Pulse Ox 03/30/21 09:30 20 22 18 18 03/30/21 08:26 20 146/82 H 98 03/30/21 07:37 18 96 03/30/21 07:22 03/30/21 05:56 18 110/71 98 03/30/21 00:41 18 140/74 92 03/30/21 00:20 20 96 03/29/21 23:44 Pulse Ox Pulse Ox Pulse Ox Pulse Ox 03/30/21 09:30 94 86 L 98 93 03/30/21 08:26 03/30/21 07:37 03/30/21 07:22 03/30/21 05:56 03/30/21 00:41 03/30/21 00:20 03/29/21 23:44
[2021-03-30] MEDS ORDERED: PANTOprazole 40 MG TAB PO SCH (11:30)
[2021-03-30] MEDS ORDERED: FAMOTIDINE 20 MG TAB PO SCH (11:30)
--- NOTE | 2021-03-30 13:57 | Discharge Summary ---
Date of Service March 30, 2021 Admission HPI Per Admitting Provider This is an 85-year-old male with past medical history significant for chronic interstitial lung disease, seasonal allergic rhinitis, atherosclerosis of both carotid arteries, history of cerebral microvascular disease, diverticulosis of colon, general osteoarthrosis, degenerative disk disease, Parkinson disease, neuropathy, thrombocytopenia, low serum vitamin B12, macrocytic anemia, anxiety, history of kidney stones, history of bilateral hip replacement, history of lumbar laminectomy, who lives at home with his , presents with cough and fever at home. Patient is vaccinated for COVID. He also had a booster shot also. For the last 3-4 days, he is having cough and fever and sweating and some headache and one episode of nausea and because of ongoing symptoms, he came to the ER and since when he came in, he was not hypoxic, but he was tachypneic and with placement of oxygen he says his headache improved. His labs are okay. ER did a CT of the chest shows no PE, but ground glass opacities in the lungs, possible viral pneumonia .Patient also seemed to have low-grade interstitial lung disease. Currently, resting comfortably and hemodynamically stable. Currently, denies any headache. No blurred vision. He had sore throat couple of days ago that has resolved. He says his appetite is okay. He has had lot of chest pain when he came in, the pain was more with deep breath but that is resolved now. Currently, no abdominal pain. He moved his bowels in the morning, which was normal. Normal bladder movements. No swelling in the legs. Ambulates with a walker. Admission Exam Per Admitting Provider GENERAL: The patient is old and frail, not in acute distress. VITAL SIGNS: Temperature 37.1, pulse 80, respiratory rate 23, blood pressure 166/97, oxygen 99% on 3 liters. HEENT: Pupils equal, round and reactive to light. Oral mucosa moist. NECK: No JVD, no neck masses. CARDIOVASCULAR: S1 and S2 heard. Regular rate and rhythm. No murmur, no gallop. RESPIRATORY SYSTEM: Normal AP diameter. No accessory muscle use. Mild bibasilar crackles. No wheezing. ABDOMEN: Soft, bowel sounds present, nontender, no distention. CENTRAL NERVOUS SYSTEM: Cranial nerves II-XII grossly intact, nonfocal. EXTREMITIES: No edema, no erythema. Principal Diagnosis Acute respiratory failure with hypoxia Possible interstitial lung disease Possible viral pneumonia, aspiration pneumonitis Discharge Exam GENERAL: elderly frail male, not in acute distress, on RA HEENT: NC/AT, EOMI, PERRL NECK: No JVD, no neck masses. CARDIOVASCULAR: S1 and S2 heard. Regular rate and rhythm. No murmur, no gallop. RESPIRATORY: No accessory muscle use. Mild rhonchi, no wheezing ABDOMEN: Soft, bowel sounds present, nontender, no distention. NEURO: Alert oriented, answering questions appropriately, no facial asymmetry, speech fluent, moves extremities EXTREMITIES: No edema, no erythema. Discharge Data Allergies Allergy/AdvReac Type Severity Reaction Status Date / Time bacitracin Allergy Unknown SWELLING Verified 03/26/21 17:08 fentanyl Allergy Unknown PASSED OUT Verified 03/26/21 17:08 neomycin Allergy Unknown SWELLING Verified 03/26/21 17:08 polymyxin B Allergy Unknown SWELLING Verified 03/26/21 17:08 Consultations 03/26/21 20:56 ED Decision to Admit Stat 03/27/21 08:20 Consult Cardiology Routine 03/27/21 09:44 Consult Pulmonology Routine Ordered Studies 03/26/21 17:34 CT angio chest PE protocol Stat IMPRESSION: 1. No pulmonary emboli identified although exam significantly compromised by respiratory motion and suboptimal evaluation of the segmental and subsegmental pulmonary arteries. 2. Ground glass opacities throughout the lungs which favor viral pneumonia. 9 mm nodular opacity within the left lower lobe favors airspace disease however a chest CT in 3 months to ensure resolution is recommended to exclude the possibility of a pulmonary nodule. 3. Cardiomegaly and moderate coronary artery calcification. 03/29/21 15:00 FL video swallow Routine IMPRESSION: 1. No tracheal aspiration identified. Intact swallowing mechanism. 2. Full recommendations by speech pathology in [place] recommendations. Hospital Course (1) Respiratory failure with hypoxia: (2) Elevated troponin: This is an 85-year-old male, presents with ongoing respiratory illness. 1. Acute respiratory failure with hypoxia Respiratory illness with cough, fever and soaking sweats. When pt came in, he was tachypneic, with oxygen headache and tachypnea improved, then resting comfortably on 2L. He also had significant chest pain before started on oxygen. Then resting comfortably, using 2 L of nasal cannula. CTA of chest ground glass opacities, possible viral pneumonia. No PE. COVID test is negative and he has completed vaccination with a booster shot. RSV and flu - negative Biofire - negative Legionella, Mycoplasma - pending The patient also has underlying interstitial lung disease. Continue steroids and nebs and p.o. doxycycline and monitor. Monitor the response. 2 step prior to discharge. Pulmonary medicine also consulted - patient may have some degree of chronic interstitial lung disease. Current CT also w/ pattern concerning for an infectious etiology. Viral illnesses are possible. Alternative etiologies including atypical pu lmonary edema would be on the list especially given his elevated troponin. BNP and pro calcitonin were negative. Recommend tapering his prednisone over the next 5 days. Intermittent aspiration would also be a potential consideration given his neurological disease as well as potential vocal cord/dysphonia. Await results of his serological evaluation. Serological evaluation will be conducted for poss. ILD. Needs repeat CT chest in 3 months to rule out underlying lung nodule. Follow up in pulmonary clinic. 2 step study obtained, and also discussed with speech therapist. Will need continuous 2 L with ambulation or eating Aspiration - 03/28 -patient had an choking/aspiration episode while in the hospital He was able to cough pieces of food out Reports this is quite frequent for him, on daily basis Will make patient n.p.o. for now obtained chest x-ray, cover with Zosyn empirically Speech eval - Video swallow study (03/29) -no evidence of bolus or tension in the esophagus, complete clearance, esophageal coating Recommendations, aspiration precautions in the discharge packet Will DC on augmentin and doxy for next 3 days. 2. Elevated troponin Initial troponin negative in ED Currently chest pain-free, reports chest pain ceased after he got oxygen in ED Repeat troponin elevated Likely demand ischemia secondary to above Echo ordered -LV is normal in size. EF 55 to 60%. LV wall motion is normal. RV systolic function is normal. Cardiology was consulted - believe elev. troponin secondary to pulmonary issues/ pneumonia 2. Parkinson's. Continue his home medications of carbidopa/levodopa and entacapone. 3. Depression: Continue citalopram. Total Time Total Time Spent Total Time Spent (In Minutes): 40 Discharge Plan Discharge Items Patient Disposition: Home - Self-Care Reason For Visit: RESP PROBLEMS Discharge Diagnosis: Acute respiratory failure with hypoxia Possible interstitial lung disease Possible viral pneumonia, aspiration pneumonitis Activity: Per Instructions section Non-emergency contact: Primary Care Provider Call non-emergency contact if: you have any medication questions and your symptoms worsen Follow-up/Referrals: Ольга Mitchell MD [Primary Care Provider] - (Date & Time 04/02/2021 9:00 AM Provider Ольга Marti MD Department General Internal Medicine [facility] ) Diet: Regular Diet Texture: Easy to Chew Addtl Attending Provider Instructions: Follow-up with your primary care doctor, and commissioned sales associate. The primary care doctor appointment was scheduled for you for April 02. Finish prednisone course as prescribed. Finish antibiotic course, with doxycycline and Augmentin as prescribed. It is important that you always sit upright when you eat, and eat slowly, smaller portions. Please read in detail instructions, from our speech therapist, to prevent any more aspirations/choking. It is also important that you have very good oral (mouth) hygiene to prevent aspiration of bacteria to your lungs. It is also recommended that you use oxygen, 2 L, with ambulation or when eating. Pending Studies at Discharge: Yes Studies:: Serological studies by pulmonary medicine Stand-Alone Forms: [facility] iNeed, Smoking Cessation Medications and DC Order Prescriptions: New doxycycline hyclate 100 mg Capsule 100 mg PO BID 3 Days Qty: 6 RF: 0 aspirin 81 mg Tablet,Delayed Release (Dr/Ec) 81 mg PO QAM Qty: 30 RF: 0 pantoprazole 40 mg Tablet,Delayed Release (Dr/Ec) 40 mg PO BID 30 Days Qty: 60 RF: 0 prednisone 20 mg Tablet 20 mg PO DAILY 3 Days Qty: 3 RF: 0 guaifenesin [Mucinex] 600 mg Tablet Extended Release 12hr 600 mg PO Q12 Qty: 10 RF: 0 amoxicillin-pot clavulanate [Augmentin] 875-125 mg tablet 1 tab PO BID 3 Days Qty: 6 RF: 0 Continued baclofen 10 mg tablet 10 mg PO BID PRN (Reason: pain/spasm) Qty: 60 RF: 2 carbidopa-levodopa 50-200 mg tablet extended release 1 tab PO TID Qty: 90 RF: 5 citalopram 10 mg tablet 10 mg PO HS Qty: 90 RF: 3 pramipexole 0.125 mg tablet 0.125 mg PO TID Qty: 270 RF: 3 entacapone [Comtan] 200 mg tablet 200 mg PO TID Qty: 270 RF: 3 gabapentin 300 mg capsule 300 mg PO HS RF: 0 Discharge Orders: Discharge Order (Routine); Ordered 03/30/21 Ordered By: Darrell Shi Admission Data Admit Date/Time: 03/26/21 23:14 Attending Provider: Darrell Shi Admit Provider: Jerod Bhatt Primary Care Provider: Ольга Mitchell Other Providers: Jerod Bhatt ; Feliciano Dorsey ; Chao Bragg
[2021-04-01 13:03] LABS: ANA Screen NEGATIVE (NEGATIVE); ANCA Screen Negative (Negative); Cyclic Citrullinated Pep IgG <16 UNITS; Myeloperoxidase Ab <1.0 AI (<1.0); Proteinase-3 AB <1.0 AI (<1.0); Rheumatoid Factor <14 IU/mL (<14)
[2021-04-01 18:47] LABS: Immunoglobulin IgE 49 kU/L (<OR=114); Legionella pneumoph IgM, IFA <1:256 TITER; Mycoplasma pneumoniae Ab, IgG 1.99 (<=0.90); Mycoplasma pneumoniae Ab, IgM 74 U/mL (<770)
== END 2021-03-30 16:39 | disposition home health service (06) | DRG 193 ==
LOC: ED 12:32 → EDINP 03-27 → 2W 03-27 01:07

== ENCOUNTER 2021-04-12 10:52 | Inpatient (IN) ==
[2021-04-12 11:30] LABS: Basophils # (auto) 0.02 K/uL (0-0.2); Basophils % (auto) 0.3 %; Eosinophils # (auto) 0.13 K/uL (0-0.5); Eosinophils % (auto) 1.8 %; Hematocrit (blood only) 36.9 % (42-52); Immature Granulocytes # (auto) 0.06 K/uL (0.00-0.02); Immature Granulocytes % (auto) 0.8 %; Lymphocytes # (auto) 0.91 K/uL (1.2-3.4); Lymphocytes % (auto) 12.5 %; Mean Corpuscular Hemoglobin 36.3 pg (25-34); Mean Corpuscular Hgb Conc 32.5 g/dL (32-36); Mean Corpuscular Volume 111.5 fL (80-100); Mean Platelet Volume 10.8 fL (7.4-10.4); Monocytes # (auto) 0.39 K/uL (0.11-0.59); Monocytes % (auto) 5.3 %; Neutrophils # (auto) 5.79 K/uL (1.4-6.5); Neutrophils % (auto) 79.3 %; Platelet Count 110 K/uL (130-400); RDW Coefficient of Variation 13.5 % (11.5-14.5); RDW Standard Deviation 55.2 fL (36.4-46.3); Red Blood Count 3.31 M/uL (4.7-6.1)
[2021-04-12 11:37] LABS: Albumin Level 2.9 gm/dl (3.4-5.0); BUN Creatinine Ratio 9.8 (10-20); Calcium 9.3 mg/dl (8.5-10.1); Creatinine Clr Calc Pharmacy 57.6 ml/min; Est GFR (Non-African American) 64.7 ml/min; Potassium 4.2 mmol/L (3.5-5.1)
--- NOTE | 2021-04-12 11:46 | XRay Report ---
XR chest 1V portable HISTORY: 85 years-old Male weakness acute weakness COMPARISON: Radiograph 03/28/2021 TECHNIQUE: Portable AP view of the chest FINDINGS: Cardiomediastinal and hilar silhouettes are within normal limits. Chronic coarsening of the interstit ium. Minimal bibasilar opacities. No pneumothorax, large pleural effusion or overt pulmonary edema. D egenerative changes of the shoulders and spine. IMPRESSION: Unchanged interstitial coarsening with ill-defined airspace opacities suggestive of an in fectious or inflammatory process. ACT 112: Negative or not required by law. The above report was generated using voice recognition software. It may contain grammatical, syntax o r spelling errors. Electronically signed by: Albert So M.D. 04/12/2021 11:45 AM
[2021-04-12 11:49] LABS: Albumin Globulin Ratio 0.7 (0.9-2); Bilirubin,Total 0.6 mg/dl (0.2-1); Globulin 4.1 gm/dl (2.5-4.0); Thyroid Stimulating Hormone 2.18 uIu/ml (0.300-4.500)
--- NOTE | 2021-04-12 12:04 | Emergency Department Note ---
Impression & Plan Pneumonia Admission ED Provider Note HPI: The patient is an 85-year-old gentleman with history of Parkinson disease, presents the emergency department with a chief complaint of generalized weakness and multiple falls today. Patient states that since last evening he has felt some generalized weakness, states that when he was attempting to ambulate today in his home he had 2 falls. He states that the falls were secondary to generalized weakness, he had to lower himself to the ground and balance himself against the wall before he fell. He denies any pain on arrival, denies hitting his head or any loss of consciousness. Patient states this is abnormal for him. He is normally able to ambulate in his home with a walker without a problem. He states he has had some shortness of breath at baseline, denies any chest pain, states that shortness of breath worsens with exertion and in conjunction with his generalized weakness when he is walking. On arrival here to the ED the patient is stable on 2 L nasal cannula oxygen, he is otherwise with stable blood pressure, he is not tachycardic. ROS: -General: Generalized weakness -Pulmonary: Shortness of breath -MSK: Multiple falls, no acute pain *10 point review systems was conducted and is otherwise negative unless stated above *Outpatient medications and allergy history reviewed PE: General: Alert, NAD HEENT: Normocephalic, atraumatic, trachea midline Eyes: Extraocular eye movement is intact, no scleral erythema Pulmonary: Diminished breath sounds bilaterally without any wheezing or crackles Cardio: Regular rate and rhythm GI: Abdomen is soft, nontender : No suprapubic tenderness MSK: No evidence of trauma or malformation of the extremities, no edema Skin: No evidence of rash Neuro: Alert, no focal deficits Psychiatric: Cooperative quality assurance monitor final: Order placed, patient is noted to be in sinus rhythm EKG: Rate: 84 Rhythm: Normal sinus rhythm Intervals: Within normal limits ST changes: No ST elevation Time: 1140 Medical Decision Making: Patient presented to the emergency department with multiple issues, states he was having some generalized weakness, he has had some multiple falls today, also complained of some shortness of breath. He was recently diagnosed with pneumo symone and had an inpatient stay in the hospital this past month, he was discharged on supplemental oxygen at 2 L nasal cannula. On arrival here to the ED the patient appears well at rest, he is saturating well on his supplemental oxygen, he has diminished but clear bilateral breath sounds, his abdomen is soft and nontender on my initial evaluation. Patient's lab work appears largely baseline, he does not have a leukocytosis, he is afebrile, COVID-19 testing is negative. Chest x-ray shows unchanged opacities consistent with the patient's history of pneumonia. Patient's urinalysis is leukocyte esterase and nitrite positive, will treat with ceftriaxone and will send for culture. In addition given the patient's history of recently diagnosed pneumonia with unchanged chest x-ray will treat with azithromycin in addition to the ceftriaxone for pulmonary coverage. Of note, patient's troponin did return elevated at 0.15, this is actually downtrending from his previous admission, he denies any chest pain, low suspicion for ACS. On my reassessment the patient tells me he is having some difficulty at home with generalized weakness, ambulating, I suspect there is an element of dyspnea on exertion as he is short of breath and conversationally dyspneic on my interview. Given this I do think he would benefit from admission. Blood cultures were drawn in the ED, I discussed the above findings with the patient's admitting team/[facility] and the patient was admitted in stable condition for further management. * Diagnosis: Pneumonia, urinary tract infection, dyspnea on exertion, elevated troponin * Disposition: Admission Prabhu Naranjo DO Emergency Medicine Past Med/Surg History Medical History Cervical facet joint syndrome Hard of hearing History of anesthesia reaction WAS SENT TO [facility] FOR 3 DAYS TO "RECOVER MY MIND ABILITIES TO HANDLE THINGS" - FOLLOWING BACK SURGERY/[facility] ABOUT 7 YRS AGO History of kidney stones History of skin cancer AND REMOVED Lumbar canal stenosis Parkinson disease Surgical History History of back surgery History of hip replacement RIGHT AND LEFT History of lithotripsy History of total left knee replacement History of total right knee replacement Family History Unknown Cancer Father Prostate cancer Mother No problems noted. Social History Smoking Status: Never smoker Hx Alcohol Use: No Hx Substance Use: No Preferred Language: Belarusian Communication Ability: Effective Ortho Nurse Required: No Beliefs That Will Affect Care: None marital status: Current Living Situation: Spouse How many Children do You have: 4 Feels Safe at Home: Yes Safety Concerns: Feels Safe At This Time Assistive Devices: Walker Allergies Allergies Allergy/AdvReac Type Severity Reaction Status Date / Time bacitracin Allergy Unknown SWELLING Verified 04/12/21 12:57 fentanyl Allergy Unknown PASSED OUT Verified 04/12/21 12:57 neomycin Allergy Unknown SWELLING Verified 04/12/21 12:57 polymyxin B Allergy Unknown SWELLING Verified 04/12/21 12:57 Home Meds Previous Rx's Medication Instructions Recorded baclofen 10 mg tablet 10 mg PO BID PRN #60 tab 12/14/20 carbidopa ER 50 mg-levodopa 200 mg 1 tab PO TID #90 tab 01/25/21 tablet,extended release citalopram 10 mg tablet 10 mg PO HS #90 tab 01/26/21 entacapone 200 mg tablet (Comtan) 200 mg PO TID #270 tab 01/26/21 pramipexole 0.125 mg tablet 0.125 mg PO TID #270 tab 01/26/21 aspirin 81 mg tablet,delayed 81 mg PO QAM #30 tab 03/30/21 release guaifenesin 600 mg tablet, 600 mg PO Q12 #10 tab 03/30/21 extended release 12 hr (Mucinex) pantoprazole 40 mg tablet,delayed 40 mg PO BID 30 Days #60 tab 03/30/21 release gabapentin 300 mg capsule 300 mg PO HS 30 Days #90 cap 04/12/21 Results & Data (ED) Vital Signs Vital Signs - 24 hr 04/12/21 11:06 04/12/21 11:12 04/12/21 11:13 Temperature 36.9 C Temperature Source Oral Pulse Rate 84 80 Pulse Rate from SpO2 Sensor 80 Respiratory Rate 18 17 Blood Pressure 122/69 Blood Pressure Mean 86 Pulse Oximetry 98 100 97 Oxygen Delivery Method Nasal Cannula Nasal Cannula Oxygen Flow Rate 2 2 2 Sepsis Recent Fever Within 48 Hours No Sepsis New/Unexplained Change in Mental Status No Sepsis Action Taken by Nursing No Action Required 04/12/21 11:30 04/12/21 12:00 04/12/21 12:30 Temperature Temperature Source Pulse Rate 82 82 83 Pulse Rate from SpO2 Sensor 83 82 83 Respiratory Rate 20 19 19 Blood Pressure 140/83 Blood Pressure Mean 102 Pulse Oximetry 100 98 100 Oxygen Delivery Method Oxygen Flow Rate 2 2 Sepsis Recent Fever Within 48 Hours Sepsis New/Unexplained Change in Mental Status Sepsis Action Taken by Nursing 04/12/21 13:00 04/12/21 13:30 04/12/21 14:00 Temperature Temperature Source Pulse Rate 86 81 84 Pulse Rate from SpO2 Sensor Respiratory Rate 24 18 17 Blood Pressure 151/82 H Blood Pressure Mean 105 Pulse Oximetry Oxygen Delivery Method Oxygen Flow Rate Sepsis Recent Fever Within 48 Hours Sepsis New/Unexplained Change in Mental Status Sepsis Action Taken by Nursing 04/12/21 14:30 04/12/21 15:00 Temperature Temperature Source Pulse Rate 82 82 Pulse Rate from SpO2 Sensor Respiratory Rate 18 18 Blood Pressure Blood Pressure Mean Pulse Oximetry Oxygen Delivery Method Oxygen Flow Rate Sepsis Recent Fever Within 48 Hours Sepsis New/Unexplained Change in Mental Status Sepsis Action Taken by Nursing Laboratory Data Result diagrams: 04/12/21 10:50 04/12/21 10:50 Lab Results 04/12/21 04/12/21 04/12/21 Range/Units 10:50 10:50 10:50 WBC 7.30 (4.8-10.8) K/uL RBC 3.31 L (4.7-6.1) M/uL Hgb 12.0 L (14.0-18.0) g/dL Hct 36.9 L (42-52) % MCV 111.5 H (80-100) fL MCH 36.3 H (25-34) pg MCHC 32.5 (32-36) g/dL RDW Std Deviation 55.2 H (36.4-46.3) fL RDW Coeff of [place] 13.5 (11.5-14.5) % Plt Count 110 L (130-400) K/uL MPV 10.8 H (7.4-10.4) fL Immature Gran % (Auto) 0.8 % Neut % (Auto) 79.3 % Lymph % (Auto) 12.5 % [place] % (Auto) 5.3 % Eos % (Auto) 1.8 % Baso % (Auto) 0.3 % Neut # (Auto) 5.79 (1.4-6.5) K/uL Lymph # (Auto) 0.91 L (1.2-3.4) K/uL [place] # (Auto) 0.39 (0.11-0.59) K/uL Eos # (Auto) 0.13 (0-0.5) K/uL Baso # (Auto) 0.02 (0-0.2) K/uL Immature Gran # (Auto) 0.06 H (0.00-0.02) K/uL Macrocytosis Present Sodium 140 (136-145) mmol/L Potassium 4.2 (3.5-5.1) mmol/L Chloride 102 (98-107) mmol/L Carbon Dioxide 33 H (21-32) mmol/L Anion Gap 5.0 (3-11) BUN 10 (7-18) mg/dl Creatinine 1.04 (0.6-1.4) mg/dl Est Cr Clr Drug Dosing 57.6 ml/min Est GFR ( Amer) 75.0 ml/min Est GFR (Non-Af Amer) 64.7 ml/min BUN/Creatinine Ratio 9.8 L (10-20) Glucose 117 H (70-99) mg/dl Calcium 9.3 (8.5-10.1) mg/dl Total Bilirubin 0.6 (0.2-1) mg/dl AST 20 (15-37) U/L ALT 16 (12-78) U/L Alkaline Phosphatase 83 (45-117) U/L Troponin I 0.158 H* (0-0.045) ng/ml Total Protein 7.0 (6.4-8.2) gm/dl Albumin 2.9 L (3.4-5.0) gm/dl Globulin 4.1 H (2.5-4.0) gm/dl Albumin/Globulin Ratio 0.7 L (0.9-2) TSH 2.180 (0.300-4.500) uIu/ml Urine Color Urine Appearance (Clear) Urine pH (4.5-7.5) Ur Specific [place] (1.000-1.030) Urine Protein (Negative) Urine Glucose (UA) (Negative) Urine Ketones (Negative) Urine Blood (Negative) Urine Nitrite (Negative) Urine Bilirubin (Negative) Urine Urobilinogen (Negative) Ur Leukocyte Esterase (Negative) Urine WBC (Auto) (0-5) /hpf Urine RBC (Auto) (0-4) /hpf U Hyaline Cast (Auto) (0-5) /lpf U Epithel Cells (Auto) (0-5) /lpf Urine Bacteria (Auto) (Negative) Urine Yeast COVID-19 Eval Order SARS-CoV-2 (PCR) (Negative) 04/12/21 04/12/21 04/12/21 Range/Units 12:06 12:25 12:25 WBC (4.8-10.8) K/uL RBC (4.7-6.1) M/uL Hgb (14.0-18.0) g/dL Hct (42-52) % MCV (80-100) fL MCH (25-34) pg MCHC (32-36) g/dL RDW Std Deviation (36.4-46.3) fL RDW Coeff of [place] (11.5-14.5) % Plt Count (130-400) K/uL MPV (7.4-10.4) fL Immature Gran % (Auto) % Neut % (Auto) % Lymph % (Auto) % [place] % (Auto) % Eos % (Auto) % Baso % (Auto) % Neut # (Auto) (1.4-6.5) K/uL Lymph # (Auto) (1.2-3.4) K/uL [place] # (Auto) (0.11-0.59) K/uL Eos # (Auto) (0-0.5) K/uL Baso # (Auto) (0-0.2) K/uL Immature Gran # (Auto) (0.00-0.02) K/uL Macrocytosis Sodium (136-145) mmol/L Potassium (3.5-5.1) mmol/L Chloride (98-107) mmol/L Carbon Dioxide (21-32) mmol/L Anion Gap (3-11) BUN (7-18) mg/dl Creatinine (0.6-1.4) mg/dl Est Cr Clr Drug Dosing ml/min Est GFR ( Amer) ml/min Est GFR (Non-Af Amer) ml/min BUN/Creatinine Ratio (10-20) Glucose (70-99) mg/dl Calcium (8.5-10.1) mg/dl Total Bilirubin (0.2-1) mg/dl AST (15-37) U/L ALT (12-78) U/L Alkaline Phosphatase (45-117) U/L Troponin I (0-0.045) ng/ml Total Protein (6.4-8.2) gm/dl Albumin (3.4-5.0) gm/dl Globulin (2.5-4.0) gm/dl Albumin/Globulin Ratio (0.9-2) TSH (0.300-4.500) uIu/ml Urine Color Dark Yellow Urine Appearance Cloudy A (Clear) Urine pH 7.0 (4.5-7.5) Ur Specific [place] 1.021 (1.000-1.030) Urine Protein 1+ H (Negative) Urine Glucose (UA) Negative (Negative) Urine Ketones Trace H (Negative) Urine Blood Negative (Negative) Urine Nitrite Positive A (Negative) Urine Bilirubin Negative (Negative) Urine Urobilinogen Negative (Negative) Ur Leukocyte Esterase 3+ H (Negative) Urine WBC (Auto) >30 H (0-5) /hpf Urine RBC (Auto) 5-10 H (0-4) /hpf U Hyaline Cast (Auto) 10-30 H (0-5) /lpf U Epithel Cells (Auto) >30 H (0-5) /lpf Urine Bacteria (Auto) Negative (Negative) Urine Yeast Not Reportable COVID-19 Eval Order Covid19 at [facility] SARS-CoV-2 (PCR) NEGATIVE (Negative) Administered Medications Discontinued Medications Aspirin (Aspirin Chew 324 Mg) 324 mg PO NOW STA Stop: 04/12/21 14:01 Last Admin: 04/12/21 14:30 Dose: 324 mg Documented by: [id number] Ceftriaxone Sodium (Rocephin) 1,000 mg in 50 mls @ 100 mls/hr IV NOW STA Stop: 04/12/21 14:30 Last Infusion: 04/12/21 16:12 Dose: 0 mls/hr Documented by: [id number] Admin: 04/12/21 14:30 Dose: 100 mls/hr Documented by: [id number] Azithromycin 500 mg/ Dextrose 255 mls @ 125 mls/hr IV ONE ONE Stop: 04/12/21 16:27 Last Admin: 04/12/21 14:51 Dose: 125 mls/hr Documented by: [id number] Imaging Data Radiologist's Impression: Chest X-Ray 04/12/21 11:12 XR chest 1V portable HISTORY: 85 years-old Male weakness acute weakness COMPARISON: Radiograph 03/28/2021 TECHNIQUE: Portable AP view of the chest FINDINGS: Cardiomediastinal and hilar silhouettes are within normal limits. Chronic coarsening of the interstitium. Minimal bibasilar opacities. No pneumothorax, large pleural effusion or overt pulmonary edema. Degenerative changes of the shoulders and spine. IMPRESSION: Unchanged interstitial coarsening with ill-defined airspace opacities suggestive of an infectious or inflammatory process. ACT 112: Negative or not required by law. The above report was generated using voice recognition software. It may contain grammatical, syntax or spelling errors. Electronically signed by: Albert So M.D. 04/12/2021 11:[address] 04/12/21 12:00 CT head/brain wo con CLINICAL HISTORY: 85 years-old Male with weak, fell x 2 today. Acute weakness with recent head trauma and fall TECHNIQUE: Multiple axial CT images of the head were obtained without contrast. A dose lowering technique was utilized adhering to the principles of ALARA. CT DOSE: 788.63 mGycm COMPARISON: Head CT 01/19/2016, brain MRI 01/03/2017 FINDINGS: No acute intracranial hemorrhage, midline shift, intracranial mass, hydrocephalus, territorial ischemia or abnormal extra-axial collection. Involutional changes. White matter hypodensities suggestive of chronic microvasc ular ischemic disease. Cerebral vascular calcifications. Unchanged subcentimeter calcification of the posterior fossa on image 15 series 2. The calvarium is intact. Near-complete opacification of the left maxillary sinus with associated periosteal thickening. Unremarkable soft tissues. Prior bilateral lens repair. IMPRESSION: 1. No acute intracranial abnormality or calvarial fracture. 2. Severe left maxillary sinus disease. ACT 112: Negative or not required by law. The above report was generated using voice recognition software. It may contain grammatical, syntax or spelling errors. Electronically signed by: Albert So M.D. 04/12/2021 12:55 PM Discharge Plan Visit Data Chief Complaint: Weakness ED Provider: Prabhu Naranjo Discharge Problem: Pneumonia Patient Disposition: Admitted As Inpatient Discharge Instructions Interventions: ED Discharge Assessment Last Done: 04/12/21 17:00 Discharge Problem: Pneumonia Qualifiers: Pneumonia type: due to unspecified organism Laterality: bilateral Lung location: unspecified part of lung Qualified Code(s): J18.9 - Pneumonia, unspecified organism
[2021-04-12 12:21] LABS: Appearance Urine Cloudy (Clear); Bacteria Urine Automated Negative (Negative); Bilirubin Urine Negative (Negative); Blood Urine Negative (Negative); Color Urine Dark Yellow; Epithelial Cell Urine Auto >30 /lpf (0-5); Glucose Urine UA Negative (Negative); Ketones Urine Trace (Negative); Leukocyte Esterase Urine 3+ (Negative); Nitrite Urine Positive (Negative); Protein Urine 1+ (Negative); Specific Gravity Urine 1.021 (1.000-1.030); Urobilinogen Urine Negative (Negative); WBC Urine Automated >30 /hpf (0-5)
[2021-04-12 12:29] LABS: Macrocytosis Present
--- NOTE | 2021-04-12 12:56 | CT Scan Report ---
CT head/brain wo con CLINICAL HISTORY: 85 years-old Male with weak, fell x 2 today. Acute weakness with recent head traum a and fall TECHNIQUE: Multiple axial CT images of the head were obtained without contrast. A dose lowering tech nique was utilized adhering to the principles of ALARA. CT DOSE: 788.63 mGycm COMPARISON: Head CT 01/19/2016, brain MRI 01/03/2017 FINDINGS: No acute intracranial hemorrhage, midline shift, intracranial mass, hydrocephalus, territorial ischem ia or abnormal extra-axial collection. Involutional changes. White matter hypodensities suggestive of chronic microvascular ischemic disease. Cerebral vascular calcifications. Unchanged subcentimeter ca lcification of the posterior fossa on image 15 series 2. The calvarium is intact. Near-complete opacification of the left maxillary sinus with associated per iosteal thickening. Unremarkable soft tissues. Prior bilateral lens repair. IMPRESSION: 1. No acute intracranial abnormality or calvarial fracture. 2. Severe left maxillary sinus disease. ACT 112: Negative or not required by law. The above report was generated using voice recognition software. It may contain grammatical, syntax o r spelling errors. Electronically signed by: Albert So M.D. 04/12/2021 12:55 PM
[2021-04-12] MEDS ORDERED: ASPIRIN CHEW 324 MG PO STA (14:00)
[2021-04-12] MEDS ORDERED: cefTRIAXone SODIUM 1,000 MG/50 ML BAG IV STA (14:01)
[2021-04-12] MEDS ORDERED: AZITHROMYCIN 500 MG in DEXTROSE 5% 250 ML IV ONE (14:25)
--- NOTE | 2021-04-12 14:35 | Electrocardiogram Report ---
Test Reason : Blood Pressure : / mmHG Vent. Rate : 084 BPM Atrial Rate : 084 BPM P-R Int : 168 ms QRS Dur : 084 ms QT Int : 386 ms P-R-T Axes : 029 -39 024 degrees QTc Int : 456 ms Poor data quality, interpretation may be adversely affected Normal sinus rhythm Left axis deviation Abnormal ECG When compared with ECG of 27-MAR-2021 02:21, No significant change was found Confirmed by Matthias Arita ([id number]) on 04/12/2021 2:35:28 PM Referred By: Confirmed By:Mark Arita
--- NOTE | 2021-04-12 15:11 | History & Physical Report ---
Date of Service April 12, 2021 Assessment & Plan (1) Generalized weakness: Plan: This is an 85yo M with a PMH of chronic interstitial lung disease, seasonal allergic rhinitis, atherosclerosis of both carotid arteries, history of cerebral microvascular disease, Parkinson disease, neuropathy, thrombocytopenia, macrocytic anemia, anxiety and other medical problems listed below who presents with generalized weakness since this morning. Recent hospitalization for acute respiratory failure in setting of possible viral PNA vs. aspiration - at new resp baseline saturating 96 % on 2L NC Afebrile, no leukocytosis or worsening SOB. Covid PCR negative CXR with unchanged interstitial coarsening with ill-defined airspace opacities suggestive of an infectious or inflammatory process No focal neuro deficits on exam. CT head without acute intracranial abnormality or calvarial fracture. Presence of severe left maxillary sinus disease Per recent pulm visit, hypoxia thought to be due to intermittent aspiration in setting of neurological disease as well as potential vocal cord/dysphonia UA abnormal, given Rocephin in ED. Follow urine culture Fall precautions, PT/OT evaluation (2) Abnormal urinalysis: Plan: Asymptomatic, UA abnormal, given Rocephin in ED Will continue abx coverage with Augmentin given sinusitis Follow urine culture (3) Interstitial lung disease: (4) Chronic respiratory failure with hypoxia: Plan: Following with [facility] pulm, PFTs ordered for May 2021 Continue supplemental 2L NC O2 (5) Sinusitis: Plan: CT head with presence of severe left maxillary sinus disease Started on Augmentin Routine ENT (6) Elevated troponin: Plan: Appears chronic. No chest pain or EKG changes Per cardio consult on previous admission, thought to be multifactorial due to age and hypoxia. No further cardiac testing was recommended (7) Parkinson disease: Plan: Continue carbidopa-levodopa, entacapone (8) Mood disorder: Plan: Continue citalopram DVT Ppx: SCDs given patient's thrombocytopenia Code status: FULL PCP: Figueroa Dispo: Admitted to med/surg Patient seen in collaboration with Dr. Shi. Please see addendum. History of Present Illness Chief Complaint: generalized weakness, UTI, SOB Primary Care Provider: Ольга Mitchell MD This is an 85yo M with a PMH of chronic interstitial lung disease, seasonal allergic rhinitis, atherosclerosis of both carotid arteries, history of cerebral microvascular disease, Parkinson disease, neuropathy, thrombocytopenia, macrocytic anemia, anxiety and other medical problems listed below who presents with generalized weakness over since this morning. Was recently admitted to our service from 03/27-03/30 for acute respiratory failure in setting of possible viral PNA vs. aspiration. Was evaluated by pulm while admitted who thought hypoxia was due to intermittent aspiration in setting of neurological disease as well as potential vocal cord/dysphonia. History of restrictive PFT lung pattern in May 2016. Repeat PFTs scheduled as an outpatient. Was also evaluated by cardiology during admission due to elevated troponin thought to be multifactorial due to age, dehydration and hypoxia. Echo unremarkable. No additional cardiac testing was thought to be needed. Speech therapy recommended easy to chew diet, aspiration reflux precautions oral hygiene BID. When seen in office was saturating at 94% on RA. Advised to continue use of oxygen in setting of eating and ambulation. This morning around 5 AM, patient was getting out of bed when his legs felt weak and he slid downwards, landing on his knees. Had 2 more events similar to this earlier today due to generalized weakness. Denies any head trauma. Still feeling short of breath similar to when he was admitted earlier in March. Denies any fever, chills, cough, chest pain, wheezing, nausea, vomiting, abdominal pain, dysuria, increased frequency or urgency, diarrhea or constipation. Has been following new recommendations from speech therapy and denies any episodes of choking or aspiration. Allergies Allergy/AdvReac Type Severity Reaction Status Date / Time bacitracin Allergy Unknown SWELLING Verified 04/12/21 12:57 fentanyl Allergy Unknown PASSED OUT Verified 04/12/21 12:57 neomycin Allergy Unknown SWELLING Verified 04/12/21 12:57 polymyxin B Allergy Unknown SWELLING Verified 04/12/21 12:57 Home Medications Medication Instructions Recorded Confirmed Type baclofen 10 mg tablet 10 mg PO BID PRN #60 tab 12/14/20 04/12/21 Rx carbidopa ER 50 mg-levodopa 200 mg 1 tab PO TID #90 tab 01/25/21 04/12/21 Rx tablet,extended release citalopram 10 mg tablet 10 mg PO HS #90 tab 01/26/21 04/12/21 Rx entacapone 200 mg tablet (Comtan) 200 mg PO TID #270 tab 01/26/21 04/12/21 Rx pramipexole 0.125 mg tablet 0.125 mg PO TID #270 tab 01/26/21 04/12/21 Rx guaifenesin 600 mg tablet, 600 mg PO Q12 #10 tab 03/30/21 04/12/21 Rx extended release 12 hr (Mucinex) pantoprazole 40 mg tablet,delayed 40 mg PO BID 30 Days #60 tab 03/30/21 04/12/21 Rx release gabapentin 300 mg capsule 300 mg PO HS 30 Days #90 cap 04/12/21 04/12/21 Rx L.acidop,casei,lactis,rham-B.lact,peggy 2 cap PO DAILY 12 Days #24 cap 04/15/21 Rx 625 mg (10 billion cell) capsule (Advanced Probiotic) amoxicillin 875 mg-potassium 1 tab PO BIDM 12 Days #24 tab 04/15/21 Rx clavulanate 125 mg tablet (Augmentin) fluticasone propionate 50 2 spray NA DAILY #16 g 04/15/21 Rx mcg/actuation nasal spray,suspension Past Med/Surg History Medical History Cervical facet joint syndrome Hard of hearing History of anesthesia reaction WAS SENT TO [facility] FOR 3 DAYS TO "RECOVER MY MIND ABILITIES TO HANDLE THINGS" - FOLLOWING BACK SURGERY/[facility] ABOUT 7 YRS AGO History of kidney stones History of skin cancer AND REMOVED Lumbar canal stenosis Parkinson disease Surgical History History of back surgery History of hip replacement RIGHT AND LEFT History of lithotripsy History of total left knee replacement History of total right knee replacement Family History Unknown Cancer Father Prostate cancer Mother No problems noted. Social History Smoking Status: Never smoker Hx Alcohol Use: No Hx Substance Use: No Preferred Language: Citizen Of [place] Communication Ability: Effective Pst Manager Required: No Beliefs That Will Affect Care: None marital status: Current Living Situation: Spouse How many Children do You have: 4 Feels Safe at Home: Yes Assistive Devices: Glasses and Walker Review of Systems Review of Systems: At least ten systems reviewed and negative except as noted in the HPI. Physical Exam Physical Exam: General Appearance: WD/WN, vitals as above, NAD, sitting up in bed, pleasant, conversing easily Head: normocephalic, atraumatic Eyes: normal inspection, PERRL, conjunctivae normal, anicteric sclerae ENT: external ear and nose normal, oropharynx normal Neck: normal visual inspection, trachea midline, no thyromegaly Respiratory: normal respiratory effort, diminished breath sounds bilaterally, no wheeze, rales or rhonchi. No accessory muscle use Cardiovascular: regular rate, rhythm, no murmur, normal peripheral pulses, no BLE edema. Vessels: no JVD Chest: normal inspection of chest Abdomen/GI: normal bowel sounds, soft, nontender, no hepatosplenomegaly Extremities/Musculoskeletal: no cyanosis or clubbing, extremities motor strength 5/5 Neurologic: PERRL, EOMI, accommodation nl, no face palsy, + rigidity to movements, no dysarthria, CN's II-XI intact bilaterally and moves all extremities Psychiatric: A+Ox3, euthymic affect Skin: no rashes, normal color, warm/dry Results & Data Results & Data ([facility]) Vital Signs (Past 12 Hours) Vital Signs Temp Pulse Resp BP Pulse Ox 04/12/21 14:30 82 18 04/12/21 14:00 84 17 04/12/21 13:30 81 18 151/82 H 04/12/21 13:00 86 24 04/12/21 12:30 83 19 100 04/12/21 12:00 82 19 140/83 98 04/12/21 11:30 82 20 100 04/12/21 11:13 97 04/12/21 11:12 80 17 100 04/12/21 11:06 36.9 C 84 18 122/69 98 Laboratory Results Short CBC 04/12/21 Range/Units 10:50 WBC 7.30 (4.8-10.8) K/uL Hgb 12.0 L (14.0-18.0) g/dL Hct 36.9 L (42-52) % Plt Count 110 L (130-400) K/uL BMP 04/12/21 10:50 Sodium 140 Potassium 4.2 Chloride 102 Carbon Dioxide 33 H BUN 10 Creatinine 1.04 Glucose 117 H Calcium 9.3 Cardiac Enzymes 04/12/21 Range/Units 10:50 Troponin I 0.158 H* (0-0.045) ng/ml Liver Function 04/12/21 Range/Units 10:50 Total Bilirubin 0.6 (0.2-1) mg/dl AST 20 (15-37) U/L ALT 16 (12-78) U/L Alkaline Phosphatase 83 (45-117) U/L Albumin 2.9 L (3.4-5.0) gm/dl Urine 04/12/21 Range/Units 12:06 Urine Color Dark Yellow Urine Appearance Cloudy A (Clear) Urine pH 7.0 (4.5-7.5) Ur Specific [place] 1.021 (1.000-1.030) Urine Protein 1+ H (Negative) Urine Glucose (UA) Negative (Negative) Diagnostic Findings Chest X-Ray 04/12/21 11:12 XR chest 1V portable HISTORY: 85 years-old Male weakness acute weakness COMPARISON: Radiograph 03/28/2021 TECHNIQUE: Portable AP view of the chest FINDINGS: Cardiomediastinal and hilar silhouettes are within normal limits. Chronic coarsening of the interstitium. Minimal bibasilar opacities. No pneumothorax, large pleural effusion or overt pulmonary edema. Degenerative changes of the shoulders and spine. IMPRESSION: Unchanged interstitial coarsening with ill-defined airspace opacities suggestive of an infectious or inflammatory process. ACT 112: Negative or not required by law. The above report was generated using voice recognition software. It may contain grammatical, syntax or spelling errors. Electronically signed by: Albert So M.D. 04/12/2021 11:[address] 04/12/21 12:00 CT head/brain wo con CLINICAL HISTORY: 85 years-old Male with weak, fell x 2 today. Acute weakness with recent head trauma and fall TECHNIQUE: Multiple axial CT images of the head were obtained without contrast. A dose lowering technique was utilized adhering to the principles of ALARA. CT DOSE: 788.63 mGycm COMPARISON: Head CT 01/19/2016, brain MRI 01/03/2017 FINDINGS: No acute intracranial hemorrhage, midline shift, intracranial mass, hydrocephalus, territorial ischemia or abnormal extra-axial collection. Involutional changes. White matter hypodensities suggestive of chronic microvascular ischemic disease. Cerebral vascular calcifications. Unchanged subcentimeter calcification of the posterior fossa on image 15 series 2. The calvarium is intact. Near-complete opacification of the left maxillary sinus with associated periosteal thickening. Unremarkable soft tissues. Prior bilateral lens repair. IMPRESSION: 1. No acute intracranial abnormality or calvarial fracture. 2. Severe left maxillary sinus disease. ACT 112: Negative or not required by law. The above report was generated using voice recognition software. It may contain grammatical, syntax or spelling errors. Electronically signed by: Albert So M.D. 04/12/2021 12:55 PM ECG Additional Comments: NSR, LAD, no significant changes from previous Supervising Physician Co-Signing Physician Notes Pt seen and examined by me, care coordinated with Daisha Sainz PA-C, pls refer to her note above for further detail. Pt is an 85yo M with chronic interstitial lung disease, seasonal allergic rhinitis, atherosclerosis of both carotid arteries, history of cerebral mi crovascular disease, Parkinson disease, neuropathy, thrombocytopenia, macrocytic anemia, anxiety who presents with generalized weakness since this morning. He was recently admitted to our service from 03/27-03/30 for acute respiratory failure in setting of possible viral PNA vs. aspiration. Was evaluated by pulm and by cardiology while admitted. Has been following new recommendations from speech therapy and denies any episodes of choking or aspiration. This morning patient was getting out of bed when his legs felt weak and he slid downwards, landing on his knees. Currently he is sitting up in bed in NAD. He is alert, oriented, answering questions appropriately. Heart sounds regular, breath sounds mildly diminished at bases, no wheezes, rhonchi, crackles. Abdomen soft, obese, + bowel sounds, nontender to palpation. No significant LE edema,and pt is moving extremities. Reports burning w/ urination. Head imaging concerning for severe sinusitis. Start empiric Abx and await urine cultx. Consult ENT for sinusitis. Yadi Shi MD
[2021-04-12] MEDS ORDERED: ACETAMINOPHEN 325 MG TAB PO PRN (17:54)
[2021-04-12] MEDS ORDERED: BACLOFEN 10 MG TAB PO PRN (19:06)
[2021-04-12] MEDS: CITALOPRAM 20 MG TAB PO SCH (20:44)
[2021-04-12] MEDS: ENTACAPONE 200 MG TAB PO SCH (20:44)
[2021-04-12] MEDS: CARBIDOPA/LEVODOPA 50/200MG EXT REL TAB PO SCH (20:45)
[2021-04-12] MEDS: GABAPENTIN 300 MG CAP PO SCH (20:45)
[2021-04-12] MEDS: PRAMIPEXOLE DIHYDROCHLO 0.25 MG TAB PO SCH (20:46)
[2021-04-12] MEDS: PANTOprazole 40 MG TAB PO SCH (20:46)
[2021-04-12] MEDS: guaiFENesin 600 MG TABCR PO SCH (20:46)
[2021-04-13 06:11] LABS: Hematocrit (blood only) 32.7 % (42-52); Hemoglobin 10.8 g/dL (14.0-18.0); Mean Corpuscular Hemoglobin 35.8 pg (25-34); Mean Corpuscular Volume 108.3 fL (80-100); RDW Coefficient of Variation 13.4 % (11.5-14.5); RDW Standard Deviation 52.6 fL (36.4-46.3); Red Blood Count 3.02 M/uL (4.7-6.1); White Blood Count 7.46 K/uL (4.8-10.8)
[2021-04-13 06:38] LABS: Mean Platelet Volume 10.2 fL (7.4-10.4); Platelet Count 92 K/uL (130-400); Platelet Estimate Decreased (Normal)
[2021-04-13 07:08] LABS: BUN Creatinine Ratio 14.5 (10-20); Calcium 9.3 mg/dl (8.5-10.1); Creatinine Clr Calc Pharmacy 75.1 ml/min; Est GFR (African American) 91.4 ml/min; Est GFR (Non-African American) 78.9 ml/min; Magnesium 2.2 mg/dl (1.8-2.4); Potassium 4.8 mmol/L (3.5-5.1)
[2021-04-13] MEDS: AMOXICILLIN/CLAVULANATE 875 MG TAB PO SCH ×3 (08:52→15:38)
[2021-04-13] MEDS: CARBIDOPA/LEVODOPA 50/200MG EXT REL TAB PO SCH ×4 (08:52→20:40)
[2021-04-13] MEDS: guaiFENesin 600 MG TABCR PO SCH ×2 (08:52→20:38)
[2021-04-13] MEDS: PANTOprazole 40 MG TAB PO SCH ×2 (08:52→20:39)
[2021-04-13] MEDS: PRAMIPEXOLE DIHYDROCHLO 0.25 MG TAB PO SCH ×4 (08:53→20:40)
[2021-04-13] MEDS: ENTACAPONE 200 MG TAB PO SCH ×4 (08:53→20:41)
--- NOTE | 2021-04-13 10:43 | ENT Consultation ---
Date of Consultation April 13, 2021 Assessment & Plan (1) Chronic left maxillary sinusitis: The patient has a history of ILD on 2L NC, HTN, parkinson's disease admitted with generalized weakness. Found to have L maxillary sinus opacification with osteitic thickening on CT head. He is asymptomatic to this and it appears chronic, both by the thickened bone and its presence on MRI brain in 2019. Likely odontogenic in origin. He is not an optimal surgical candidate. No need for acute intervention, although he may benefit from maxillary antrostomy vs. balloon sinuplasty as an outpatient. FFL shows no mass, lesion, or TVF immobility. He does have bilateral TVF atrophy. I suspect his dysphagia is driven by his parkinsons. -Flonase 2 sprays once daily -Swallowing therapy, diet per BEATER OUT LEVELING MACHINE -F/u as an outpatient in 6-8 weeks or sooner if needed. Call [phone] for appt History of Present Illness Attending Physician: Darrell Shi MD History of Present Illness 85yM admitted with generalized weakness found to have L maxillary sinusitis on CT head. Patient denies nasal obstruction, discolored drainage, facial pressure, hyposmia. History of L maxillary dental issues, had a dental extraction reportedly several months ago. On review of previous imaging, MRI brain from 2019 shows similar opacification of L maxillary sinus and some L frontal air cells per my read. No prior nasal surgery. No history of symptomatic sinusitis PMH includes ILD on 2L O2 NC, parkinson's disease, HTN, SCCa skin He was also recently hospitalized with respiratory failure, pulmonary evaluation thought 2/2 chronic aspiration. MBS 03/2021 showed no evidence of aspiration. Never smoker. Allergies Allergy/AdvReac Type Severity Reaction Status Date / Time bacitracin Allergy Unknown SWELLING Verified 04/12/21 12:57 fentanyl Allergy Unknown PASSED OUT Verified 04/12/21 12:57 neomycin Allergy Unknown SWELLING Verified 04/12/21 12:57 polymyxin B Allergy Unknown SWELLING Verified 04/12/21 12:57 Home Medications Medication Instructions Recorded Confirmed Type baclofen 10 mg tablet 10 mg PO BID PRN #60 tab 12/14/20 04/12/21 Rx carbidopa ER 50 mg-levodopa 200 mg 1 tab PO TID #90 tab 01/25/21 04/12/21 Rx tablet,extended release citalopram 10 mg tablet 10 mg PO HS #90 tab 01/26/21 04/12/21 Rx entacapone 200 mg tablet (Comtan) 200 mg PO TID #270 tab 01/26/21 04/12/21 Rx pramipexole 0.125 mg tablet 0.125 mg PO TID #270 tab 01/26/21 04/12/21 Rx guaifenesin 600 mg tablet, 600 mg PO Q12 #10 tab 03/30/21 04/12/21 Rx extended release 12 hr (Mucinex) pantoprazole 40 mg tablet,delayed 40 mg PO BID 30 Days #60 tab 03/30/21 04/12/21 Rx release gabapentin 300 mg capsule 300 mg PO HS 30 Days #90 cap 04/12/21 04/12/21 Rx Patient History Medical History Cervical facet joint syndrome Hard of hearing History of anesthesia reaction WAS SENT TO [facility] FOR 3 DAYS TO "RECOVER MY MIND ABILITIES TO HANDLE THINGS" - FOLLOWING BACK SURGERY/[facility] ABOUT 7 YRS AGO History of kidney stones History of skin cancer AND REMOVED Lumbar canal stenosis Parkinson disease Surgical History History of back surgery History of hip replacement RIGHT AND LEFT History of lithotripsy History of total left knee replacement History of total right knee replacement Family History Unknown Cancer Father Prostate cancer Mother No problems noted. Social History Smoking Status: Never smoker Hx Alcohol Use: No Hx Substance Use: No Preferred Language: [place] Communication Ability: Effective Roller Leveler Required: No Beliefs That Will Affect Care: None marital status: Current Living Situation: Spouse How many Children do You have: 4 Feels Safe at Home: Yes Safety Concerns: Feels Safe At This Time Assistive Devices: Walker Physical Exam Physical Exam: General: The patient is well-developed, well-nourished, and in no acute distress. Head and Face: Skull: No obvious deformities Sinus tenderness: There is no tenderness to palpation of the sinuses. Salivary glands: The parotid and submandibular glands are normal in appearance and there are no masses on palpation. Facial strength: Facial motion is symmetric and without weakness. Eyes: Eyelids: There is no periorbital edema. Conjunctiva: There is no conjunctival erythema. Pupils: The pupils are equal, round, and reactive to light. Extraocular muscles: Extraocular movement is normal. Nystagmus: There is no nystagmus. Ears: Right auricle: The pinna is normally formed without skin lesion or mass. Left auricle: The pinna is normally formed without skin lesion or mass. Hearing: Clinical speech lead sql developer threshold testing is grossly reduced. Nose: External: There is no gross external deformity, tenderness, or skin lesion or mass. Mucosa: Mild mucosal edema/inflammation Septum: The nasal septum is deviated to the right Nasal cavity: Mild bilateral ITH. See nasal endoscopy Oral cavity/Oropharynx: Lips: There are no lip lesions or masses. Oral cavity: There is no inflammation, lesion, or mass involving the gums, gingiva, floor of mouth, buccal mucosa, retromolar trigone, hard palate, soft palate, tongue. Dentition is absent L maxilla Oropharynx: There is no inflammation, lesion, or mass involving the palatine tonsils or posterior pharyngeal wall. Tonsils surgically absent Neck: General: There are no visible scars or lesions involving the neck. There are no visible or palpable masses involving the neck. The trachea is midline. Lymph nodes: There is no visible or palpable neck lymphadenopathy. Thyroid: There is no visible or palpable thyroid enlargement or nodularity. Respiratory/Pulmonary: There is no stertor or stridor. There is normal respiratory effort without acute distress. Cardiovascular: There is no visible extremity edema. Skin: There are no visible lesions or masses involving the skin of the head and neck region. Neurological: Cranial nerves: Cranial nerve II is noted to be intact by grossly normal visual acuity. Cranial nerves III, IV, and are noted to be intact by normal extraocular movements. Cranial nerve VII is noted to be intact by symmetric and normal facial movement. Cranial nerve VIII is noted to be intact by a relatively normal clinical speech lead sql developer threshold. Cranial nerve IX is noted to be intact by an intact gag reflex and normal palatal movement. Cranial nerve X is noted to be intact by a normal voice. Cranial nerve XI is noted to be intact by normal shoulder and head movement. Cranial nerve XII is noted to be intact by normal symmetric tongue movement. Vestibular system: There is no spontaneous or gaze evoked nystagmus. Psychiatric: Mental status: The patient is awake and alert. Mood/affect: The patient has a normal mood and affect. Procedure: Diagnostic nasal endoscopy Indication: L maxillary sinusitis Details: Following the application of topical lidocaine and afrin, the bilateral nasal cavities were examined with a flexible endoscope. The septum was as described above. Examination of the left side revealed mild fullness/bowing of the uncinate process but an otherwise clear middle meatus and sphenoethmoid recess. There was no mucupurulence or polyposis. Examination of the right side was limited by the septal deviation. I was unable to assess the middle meatus or sphenoethmoid recess. The nasopharynx was clear. The turbinates were hypertrophied in size and responded to topical decongestant spray. The patient tolerated the procedure well. Procedure: Flexible fiberoptic laryngoscopy Indication: Dysphagia, PNA Details: Following the topical application of afrin and lidocaine, the flexible laryngoscope was inserted into the nasal cavity. The septum, turbinates, and nasal mucosa were as described above. The nasopharynx was normal. The palatine tonsils were normal bilaterally. The base of tongue and vallecula were normal. The epiglottis, bilateral arytenoids, and bilateral aryepiglottic folds, and bilateral false vocal folds were normal. The true vocal folds were atrophied but otherwise normal without masses or lesions. There was normal mobility of the true vocal folds bilaterally. The bilateral pyriform sinuses and postcricoid space was normal. There was no pooling of secretions. No aspiration or penetration was visualized. The patient tolerated the procedure well. Results & Data ([facility] [place]) Vital Signs (Past 12 Hours) Vital Signs Temp Pulse Resp BP BP Pulse Ox 04/13/21 09:55 97 04/13/21 07:21 36.4 C L 72 16 136/79 100 04/13/21 04:07 36.5 C 85 18 142/74 H 96 04/13/21 00:06 36.9 C 80 18 123/75 97 PG Care Time/CCT Total # of Minutes Spent Total Time Spent with Patient: Total time spent is greater than 50% in coordination of care (as documented) at patient's floor/unit and/or counseling patient: Coding Level of Care Code 92710 Initial Inpt Care Lvl 2 Diagnoses Chronic left maxillary sinusitis J32.0 CPT Codes Nasal Endoscopy, Dx - 02028 ([id number])
[2021-04-13] MEDS: GABAPENTIN 300 MG CAP PO SCH (20:38)
[2021-04-13] MEDS: CITALOPRAM 20 MG TAB PO SCH (20:39)
[2021-04-13 20:53] LABS: Appearance Urine Clear (Clear); Bilirubin Urine Negative (Negative); Blood Urine Negative (Negative); Color Urine Dark Yellow; Glucose Urine UA Negative (Negative); Ketones Urine Negative (Negative); Leukocyte Esterase Urine Negative (Negative); Nitrite Urine Negative (Negative); Protein Urine Negative (Negative); Specific Gravity Urine 1.009 (1.000-1.030); Urobilinogen Urine Negative (Negative); pH Urine 6.5 (4.5-7.5)
[2021-04-14 07:00] LABS: Hemoglobin 10.8 g/dL (14.0-18.0); Mean Corpuscular Hemoglobin 36.2 pg (25-34); Mean Corpuscular Hgb Conc 32.7 g/dL (32-36); Mean Corpuscular Volume 110.7 fL (80-100); RDW Coefficient of Variation 13.6 % (11.5-14.5); RDW Standard Deviation 54.1 fL (36.4-46.3); Red Blood Count 2.98 M/uL (4.7-6.1); White Blood Count 6.13 K/uL (4.8-10.8)
[2021-04-14 07:02] LABS: Mean Platelet Volume 10.3 fL (7.4-10.4); Platelet Count 86 K/uL (130-400)
[2021-04-14 07:34] LABS: BUN Creatinine Ratio 14.4 (10-20); Calcium 8.5 mg/dl (8.5-10.1); Creatinine Clr Calc Pharmacy 64.9 ml/min; Est GFR (African American) 80.6 ml/min; Est GFR (Non-African American) 69.5 ml/min
--- NOTE | 2021-04-14 07:47 | Hospitalist Progress Note ---
Date of Service April 13, 2021 (late entry) Assessment & Plan (1) Generalized weakness: Plan: 85yo M with chronic interstitial lung disease, seasonal allergic rhinitis, atherosclerosis of both carotid arteries, history of cerebral microvascular disease, Parkinson disease, neuropathy, thrombocytopenia, macrocytic anemia, anxiety who presents with generalized weakness since the morning of admission. Recent hospitalization for acute respiratory failure in setting of possible viral PNA vs. aspiration - at new resp baseline saturating 96 % on 2L NC Afebrile, no leukocytosis or worsening SOB. Covid PCR negative CXR with unchanged interstitial coarsening with ill-defined airspace opacities suggestive of an infectious or inflammatory process No focal neuro deficits on exam. CT head without acute intracranial abnormality or calvarial fracture. Presence of severe left maxillary sinus disease Per recent pulm visit, hypoxia thought to be due to intermittent aspiration in setting of neurological disease as well as potential vocal cord/dysphonia UTI Pt reports burning w/ urination UA abnormal, given Rocephin in ED. Started on Augmentin to cover for poss. UTI and also sinusitis Urine culture inconclusive, recommend to recollect UA Repeat UA ordered Fall precautions, PT/OT evaluation (2) Abnormal urinalysis: (3) Interstitial lung disease: (4) Chronic respiratory failure with hypoxia: Plan: Following with [facility] pulm, PFTs ordered for May 2021 Continue supplemental 2L NC O2 (5) Sinusitis: Plan: CT head with presence of severe left maxillary sinus disease Started on Augmentin ENT consulted (6) Elevated troponin: Plan: Appears chronic. No chest pain or EKG changes Per cardio consult on previous admission, thought to be multifactorial due to age and hypoxia. No further cardiac testing was recommended (7) Parkinson disease: Plan: Continue carbidopa-levodopa, entacapone (8) Mood disorder: Plan: Continue citalopram DVT Ppx: SCDs given patient's thrombocytopenia Code status: FULL PCP: Dr. Marti Dispo: Admitted to med/surg Admission and Anticipated Discharge Date Admission Date: April 12, 2021 Subjective Pt seen in follow up of weakness, UTI, poss. sinus infection (in the setting of Parkinson's) Pt is sitting up in bed in NAD Says he feels better, dysuria is improving no chest pain, no episodes of choking, no increased shortness of breath denies abd. pain, nausea or vomiting Seen by ENT earlier today Ucultx inconclusive , recommend to recollect, repeat UA ordered Review of Systems Review of Systems: All systems reviewed & are unremarkable except as noted in Subjective Physical Exam Physical Exam: General Appearance:elderly M in NAD on NC Head: normocephalic, atraumatic Eyes:normal inspection, PERRL,EOMI, conjunctivae normal, anicteric sclerae ENT: external ear and nose normal, oropharynx normal Neck: normal visual inspection Respiratory:normal respiratory effort, diminished breath sounds bilaterally, no wheeze, rales or rhonchi. No accessory muscle use Cardiovascular: regular rate, rhythm, no murmur, normal peripheral pulses, no BLE edema. Vessels: no JVD Chest: normal inspection of chest Abdomen/GI: normal bowel sounds, soft, nontender, + obese Extremities/Musculoskeletal: moves extremities Neurologic: PERRL, EOMI,no face palsy, + rigidity to movements, no dysarthria, moves all extremities Psychiatric:A+Ox3, euthymic affect Skin: no rashes, normal color, warm/dry Results & Data Results & Data ([facility] [place]) Vital Signs (Past 12 Hours) Vital Signs Temp Pulse Resp BP Pulse Ox 04/13/21 22:32 36.5 C 77 20 131/64 97 Medications Administered Current Inpatient Medications Acetaminophen (Acetaminophen 325 Mg Tab) 650 mg PO Q4H PRN PRN Reason: Pain or Fever Stop: 05/12/21 17:53 Amoxicillin/Clavulanate Potassium (Amoxicillin/Clavulanate 875 Mg Tab) 1 tab PO BIDM [facility] Stop: 04/23/21 07:59 Last Admin: 04/13/21 15:38 Dose: 1 tab Documented by: Baclofen (Baclofen 10 Mg Tab) 10 mg PO BID PRN PRN Reason: pain/spasm Stop: 05/12/21 19:05 Carbidopa/Levodopa (Carbidopa/Levodopa 50/200mg Ext Rel Tab) 1 tab PO TID [facility] Stop: 05/12/21 20:59 Last Admin: 04/13/21 20:40 Dose: 1 tab Documented by: Citalopram Hydrobromide (Citalopram 20 Mg Tab) 10 mg PO HS [facility] Stop: 05/12/21 20:59 Last Admin: 04/13/21 20:39 Dose: 10 mg Documented by: Entacapone (Entacapone 200 Mg Tab) 200 mg PO TID [facility] Stop: 05/12/21 20:59 Last Admin: 04/13/21 20:41 Dose: 200 mg Documented by: Gabapentin (Gabapentin 300 Mg Cap) 300 mg PO HS [facility] Stop: 05/12/21 20:59 Last Admin: 04/13/21 20:38 Dose: 300 mg Documented by: Guaifenesin (Guaifenesin 600 Mg Tabcr) 600 mg PO Q12 [facility] Stop: 05/12/21 20:59 Last Admin: 04/13/21 20:38 Dose: 600 mg Documented by: Pantoprazole Sodium (Pantoprazole 40 Mg Tab) 40 mg PO BID [facility] Stop: 05/12/21 20:59 Last Admin: 04/13/21 20:39 Dose: 40 mg Documented by: Pramipexole Dihydrochloride (Pramipexole Dihydrochlo 0.25 Mg Tab) 0.125 mg PO TID [facility] Stop: 05/12/21 20:59 Last Admin: 04/13/21 20:40 Dose: 0.125 mg Documented by:
[2021-04-14] MEDS: PRAMIPEXOLE DIHYDROCHLO 0.25 MG TAB PO SCH ×3 (08:29→21:16)
[2021-04-14] MEDS: PANTOprazole 40 MG TAB PO SCH ×2 (08:30→21:14)
[2021-04-14] MEDS: guaiFENesin 600 MG TABCR PO SCH ×2 (08:30→21:15)
[2021-04-14] MEDS: ENTACAPONE 200 MG TAB PO SCH ×3 (08:31→21:13)
[2021-04-14] MEDS: CARBIDOPA/LEVODOPA 50/200MG EXT REL TAB PO SCH ×3 (08:31→21:15)
[2021-04-14] MEDS: AMOXICILLIN/CLAVULANATE 875 MG TAB PO SCH ×2 (08:31→17:40)
--- NOTE | 2021-04-14 17:13 | Hospitalist Progress Note ---
Date of Service April 14, 2021 Assessment & Plan (1) Chronic left maxillary sinusitis: (2) Chronic respiratory failure with hypoxia: (3) Generalized weakness: Plan: 85yo M with PMH of chronic interstitial lung disease (restrictive PFT in May 2016), seasonal allergic rhinitis, atherosclerosis of both carotid arteries, cerebral microvascular disease, Parkinson disease, neuropathy, thrombocytopenia, macrocytic anemia, anxiety presented to our ED 04/12 with generalized weakness since AM on the day of arrival. #. Generalized weakness #. Recent Respiratory illness #. Lt Maxillary Sinus Dz: Recent hospitalization for acute respiratory failure in setting of possible viral PNA vs. aspiration - at new resp baseline saturating 96 % on 2L NC Per recent pulm visit, hypoxia thought to be due to intermittent aspiration in setting of neurological disease as well as potential vocal cord/dysphonia At presentation: Afebrile, no leukocytosis or worsening SOB. Covid PCR negative Admitting CXR with unchanged interstitial coarsening with ill-defined airspace opacities suggestive of an infectious or inflammatory process CT head withoutacute intracranial abnormality or calvarial fracture. Presence of severe left maxillary sinus disease. ENT evaluated the patient while inpatient: Asymptomatic chronic left maxillary sinusitis, not an optimal surgical candidate, no need for acute intervention, might benefit from maxillary antrostomy versus balloon sinuplasty as an outpatient. FFS shows no mass, lesion or TVF immobility. Suspect dysphagia being driven by his Parkinson's. Recommends Flonase 2 spray daily and swallowing therapy/diet per [employer]. Follow-up as an outpatient in 6 to 8 weeks or sooner as needed. Fall precautions, PT/OT evaluation, c/w Augmentin 04/13 #. Abnormal urinalysis: Patient reporting pain/burning while passing urine lately Admitting urine analysis suggestive of UTI Patient on Augmentin 04/13 started for sinusitis which will cover UTI. Will DC augmentin in 5 days. #. Interstitial lung disease: #. Chronic respiratory failure with hypoxia: Following with [facility] pulm, PFTs ordered for May 2021 Continue supplemental 2L NC O2 #. Elevated troponin: Appears chronic. No chest pain or EKG changes Per cardio consult on previous admission, thought to be multifactorial due to age and hypoxia. No further cardiac testing was recommended #. Parkinson disease: Continue carbidopa-levodopa, entacapone #. Mood disorder: Continue citalopram DVT Ppx: SCDs given patient's thrombocytopenia Code status: FULL PCP: Figueroa Dispo: Admitted to med/surg. PT/OT recommending home with home health. Admission and Anticipated Discharge Date Admission Date: April 12, 2021 Subjective Patient was sitting up in chair, on 1 L nasal cannula oxygen, NAD, no acute events overnight per patient. He is eating and moving bowels okay. Patient reports improving pain and burning with passing urine. Patient denies any headache/dizziness/chest pain/palpitation/other review of symptoms. Physical Exam Physical Exam: GENERAL: Alert and oriented x3. NAD, on 1L. HEENT: No pallor, no icterus. Pupils equal, round and reactive to light. Oral mucosa moist. NECK: No JVD, no neck masses. HEART: S1 and S2 heard. Regular rate and rhythm. No murmur, no gallop. RESPIRATORY SYSTEM: Normal AP diameter. No accessory muscle use. No wheezing, bibasilar fine crackles. ABDOMEN: Soft, bowel sounds present, nontender, no distention. CENTRAL NERVOUS SYSTEM: Alert and oriented x3. No facial droop. Speech is clear. Obeys simple commands. Moves extremities. EXTREMITIES: 1-2+ BLE edema, no erythema seen. Results & Data Results & Data ([facility]) Vital Signs (Past 12 Hours) Vital Signs Temp Pulse Resp BP BP Pulse Ox 04/14/21 15:08 36.4 C L 82 20 144/79 H 95 04/14/21 12:00 36.4 C L 76 20 106/58 L 95 04/14/21 07:00 36.3 C L 75 20 154/80 H 100
[2021-04-14] MEDS: FLUTICASONE PROPIONATE NA SPR 16 GM BTL SCH (18:09)
[2021-04-14] MEDS: CITALOPRAM 20 MG TAB PO SCH (21:14)
[2021-04-14] MEDS: GABAPENTIN 300 MG CAP PO SCH (21:15)
[2021-04-15 06:09] LABS: Hematocrit (blood only) 31.3 % (42-52); Hemoglobin 10.2 g/dL (14.0-18.0); Mean Corpuscular Hgb Conc 32.6 g/dL (32-36); Mean Corpuscular Volume 110.6 fL (80-100); RDW Coefficient of Variation 13.8 % (11.5-14.5); RDW Standard Deviation 55.5 fL (36.4-46.3); Red Blood Count 2.83 M/uL (4.7-6.1)
[2021-04-15 06:14] LABS: Mean Platelet Volume 10.2 fL (7.4-10.4); Platelet Count 93 K/uL (130-400)
[2021-04-15] MEDS: PRAMIPEXOLE DIHYDROCHLO 0.25 MG TAB PO SCH ×2 (08:15→13:29)
[2021-04-15] MEDS: ENTACAPONE 200 MG TAB PO SCH ×2 (08:16→13:29)
[2021-04-15] MEDS: FLUTICASONE PROPIONATE NA SPR 16 GM BTL SCH (08:16)
[2021-04-15] MEDS: AMOXICILLIN/CLAVULANATE 875 MG TAB PO SCH (08:16)
[2021-04-15] MEDS: PANTOprazole 40 MG TAB PO SCH (08:16)
[2021-04-15] MEDS: guaiFENesin 600 MG TABCR PO SCH (08:16)
[2021-04-15] MEDS: CARBIDOPA/LEVODOPA 50/200MG EXT REL TAB PO SCH ×2 (08:16→13:29)
[2021-04-15] MEDS ORDERED: ADVANCED PROBIOTIC 1250 MG CAPSULE PO SCH (09:00)
--- NOTE | 2021-04-15 15:45 | Discharge Summary ---
Date of Service April 15, 2021 Admission HPI Per Admitting Provider This is an 85yo M with a PMH of chronic interstitial lung disease, seasonal allergic rhinitis, atherosclerosis of both carotid arteries, history of cerebral microvascular disease, Parkinson disease, neuropathy, thrombocytopenia, macrocytic anemia, anxiety and other medical problems listed below who presents with generalized weakness over since this morning. Was recently admitted to our service from 03/27-03/30 for acute respiratory failure in setting of possible viral PNA vs. aspiration. Was evaluated by pulm while admitted who thought hypoxia was due to intermittent aspiration in setting of neurological disease as well as potential vocal cord/dysphonia. History of restrictive PFT lung pattern in May 2016. Repeat PFTs scheduled as an outpatient. Was also evaluated by cardiology during admission due to elevated troponin thought to be multifactorial due to age, dehydration and hypoxia. Echo unremarkable. No additional cardiac testing was thought to be needed. Speech therapy recommended easy to chew diet, aspiration reflux precautions oral hygiene BID. When seen in office was saturating at 94% on RA. Advised to continue use of oxygen in setting of eating and ambulation. This morning around 5 AM, patient was getting out of bed when his legs felt weak and he slid downwards, landing on his knees. Had 2 more events similar to this earlier today due to generalized weakness. Denies any head trauma. Still feeling short of breath similar to when he was admitted earlier in March. Denies any fever, chills, cough, chest pain, wheezing, nausea, vomiting, abdominal pain, dysuria, increased frequency or urgency, diarrhea or constipation. Has been following new recommendations from speech therapy and denies any episodes of choking or aspiration. Admission Exam Per Admitting Provider General Appearance:WD/WN, vitals as above, NAD, sitting up in bed, pleasant, conversing easily Head: normocephalic, atraumatic Eyes:normal inspection, PERRL, conjunctivae normal, anicteric sclerae ENT: external ear and nose normal, oropharynx normal Neck: normal visual inspection, trachea midline, no thyromegaly Respiratory:normal respiratory effort, diminished breath sounds bilaterally, no wheeze, rales or rhonchi. No accessory muscle use Cardiovascular: regular rate, rhythm, no murmur, normal peripheral pulses, no BLE edema. Vessels: no JVD Chest: normal inspection of chest Abdomen/GI: normal bowel sounds, soft, nontender, no hepatosplenomegaly Extremities/Musculoskeletal: no cyanosis or clubbing, extremities motor strength 5/5 Neurologic: PERRL, EOMI, accommodation nl, no face palsy, + rigidity to movements, no dysarthria, CN's II-XI intact bilaterally and moves all extremities Psychiatric:A+Ox3, euthymic affect Skin: no rashes, normal color, warm/dry Principal Diagnosis Generalized weakness Chronic left maxillary sinusitis Likely UTI Discharge Exam GENERAL: Alert and oriented x3. NAD, on 2L. HEENT: No pallor, no icterus. Pupils equal, round and reactive to light. Oral mucosa moist. NECK: No JVD, no neck masses. HEART: S1 and S2 heard. Regular rate and rhythm. No murmur, no gallop. RESPIRATORY SYSTEM: Normal AP diameter. No accessory muscle use. No wheezing, bibasilar fine crackles. ABDOMEN: Soft, bowel sounds present, nontender, no distention. CENTRAL NERVOUS SYSTEM: Alert and oriented x3. No facial droop. Speech is clear. Obeys simple commands. Moves extremities. EXTREMITIES: 1+ BLE edema, no erythema seen. Discharge Data Allergies Allergy/AdvReac Type Severity Reaction Status Date / Time bacitracin Allergy Unknown SWELLING Verified 04/12/21 12:57 fentanyl Allergy Unknown PASSED OUT Verified 04/12/21 12:57 neomycin Allergy Unknown SWELLING Verified 04/12/21 12:57 polymyxin B Allergy Unknown SWELLING Verified 04/12/21 12:57 Consultations 04/12/21 14:57 ED Decision to Admit Stat 04/12/21 19:05 Consult Otolaryngology (Head and Neck) Routine Ordered Studies 04/12/21 12:00 CT head/brain wo con Stat Hospital Course (1) Chronic left maxillary sinusitis: (2) Chronic respiratory failure with hypoxia: (3) Generalized weakness: 85yo M with PMH of chronic interstitial lung disease (restrictive PFT in May 2016), seasonal allergic rhinitis, atherosclerosis of both carotid arteries, cerebral microvascular disease, Parkinson disease, neuropathy, thrombocytopenia, macrocytic anemia, anxiety presented to our ED 04/12 with generalized weakness since AM on the day of arrival. He was managed for the following while in the hospital: #. Generalized weakness #. Recent Respiratory illness #. Lt Maxillary Sinus Dz: Recent hospitalization for acute respiratory failure in setting of possible viral PNA vs. aspiration - at new resp baseline saturating 96 % on 2L NC Per recent pulm visit, hypoxia thought to be due to intermittent aspiration in setting of neurological disease as well as potential vocal cord/dysphonia At presentation: Afebrile, no leukocytosis or worsening SOB. Covid PCR negative Admitting CXR with unchanged interstitial coarsening with ill-defined airspace opacities suggestive of an infectious or inflammatory process CT head withoutacute intracranial abnormality or calvarial fracture. Presence of severe left maxillary sinus disease. ENT evaluated the patient while inpatient: Asymptomatic chronic left maxillary sinusitis, not an optimal surgical candidate, no need for acute intervention, might benefit from maxillary antrostomy versus balloon sinuplasty as an outpatient. FFS shows no mass, lesion or TVF immobility. Suspect dysphagia being driven by his Parkinson's. Recommends Flonase 2 spray daily and swallowing therapy/diet per [employer]ER. Follow-up as an outpatient in 6 to 8 weeks or sooner as needed. Continue with Augmentin as prescribed, continue physical therapy at home, take time and let body adjust/react while changing positions as discussed at the bedside. #. Abnormal urinalysis: Patient reporting pain/burning while passing urine lately Admitting urine analysis suggestive of UTI Patient on Augmentin 04/13 started for sinusitis which will cover UTI. Patient reported improvement in pain/burning while passing urine. #. Interstitial lung disease: #. Chronic respiratory failure with hypoxia: Following with [facility] pulm, PFTs ordered for May 2021 Continue supplemental 2L NC O2 #. Elevated troponin: Appears chronic. No chest pain or EKG changes Per cardio consult on previous admission, thought to be multifactorial due to age and hypoxia. No further cardiac testing was recommended #. Parkinson disease: Continue carbidopa-levodopa, entacapone #. Mood disorder: Continue citalopram Code status: FULL PCP: Figueroa Patient discharged home with home health with following instruction at the time discharge: Follow-up with your primary care physician within a week time. Complete the course of antibiotic as prescribed. Use Flonase 2 spray daily. Follow-up with ENT as an outpatient in 6 to 8 weeks or sooner as needed. Continue with physical therapy at home, take time and let body react when changing positions. Walk with the help of support. Take medications as prescribed. Total Time Total Time Spent Total Time Spent (In Minutes): 45 Discharge Plan Discharge Items Patient Disposition: Home - Home Health Services Reason For Visit: GENERALIZED WEAKNESS, UTI Discharge Diagnosis: Generalized weakness Chronic left maxillary sinusitis Likely UTI Activity: Resume your previous activity Non-emergency contact: Primary Care Provider Call non-emergency contact if: you have any medication questions and your symptoms worsen Follow-up/Referrals: Ольга Mitchell MD [Primary Care Provider] - (Date & Time 04/19/2021 10:20 AM Provider Ольга Marti MD Department General Internal Medicine [facility] ) Diet: Regular Addtl Attending Provider Instructions: Follow-up with your primary care physician within a week time. Complete the course of antibiotic as prescribed. Use Flonase 2 spray daily. Follow-up with ENT as an outpatient in 6 to 8 weeks or sooner as needed. Continue with physical therapy at home, take time and let body react when changing positions. Walk with the help of support. Take medications as prescribed. Pending Studies at Discharge: Yes (Admitting blood culture final results.) Stand-Alone Forms: [facility] [employer], Smoking Cessation Medications and DC Order Prescriptions: New amoxicillin-pot clavulanate [Augmentin] 875-125 mg Tablet 1 tab PO BIDM 12 Days Qty: 24 RF: 0 fluticasone propionate 50 mcg/actuation [place],Suspension 2 spray NA DAILY Qty: 16 RF: 0 Advanced Probiotic 625 mg (10 billion cell) Capsule 2 cap PO DAILY 12 Days Qty: 24 RF: 0 Continued baclofen 10 mg tablet 10 mg PO BID PRN (Reason: pain/spasm) Qty: 60 RF: 2 carbidopa-levodopa 50-200 mg tablet extended release 1 tab PO TID Qty: 90 RF: 5 gabapentin 300 mg capsule 300 mg PO HS 30 Days Qty: 90 RF: 1 citalopram 10 mg tablet 10 mg PO HS Qty: 90 RF: 3 pramipexole 0.125 mg tablet 0.125 mg PO TID Qty: 270 RF: 3 entacapone [Comtan] 200 mg tablet 200 mg PO TID Qty: 270 RF: 3 pantoprazole 40 mg Tablet,Delayed Release (Dr/Ec) 40 mg PO BID 30 Days Qty: 60 RF: 0 guaifenesin [Mucinex] 600 mg Tablet Extended Release 12hr 600 mg PO Q12 Qty: 10 RF: 0 Discharge Orders: Discharge Order (Routine); Ordered 04/15/21 Ordered By: Connor Pollock Admission Data Admit Date/Time: 04/12/21 15:20 Attending Provider: Connor Pollock Admit Provider: Darrell Shi Primary Care Provider: Ольга Mitchell Other Providers: Darrell Shi ; Abhijeet Bella ; [facility],Home Health Other Interventions: Discharge Summary Assessment (RN) Last Done: 04/15/21 13:08
== END 2021-04-15 15:20 | disposition home health service (06) | DRG 153 ==
LOC: ED 10:52 → 2N 15:20 → SUATTDRO 15:20 → 2N 17:00

== ENCOUNTER 2023-11-29 14:33 | Inpatient (IN) ==
[2023-11-29 15:14] LABS: Base Excess VBG 3.1 mEq/L; HCO3 VBG 30 mmol/L; Oxygen Saturation VBG < 60.0 %; PCO2 VBG 56 mmHg (38-50); PO2 VBG 35 mmHg; pH VBG 7.34 (7.36-7.41)
[2023-11-29] MEDS: ALBUT/IPRATROP 3MG/0.5MG NEB 3 ML VIAL NEB STA (15:19)
--- NOTE | 2023-11-29 15:23 | XRay Report ---
SINGLE VIEW CHEST CLINICAL HISTORY: Sepsis FINDINGS: An AP, portable, upright chest radiograph is compared to study dated 04/12/2021 and correlat ed with chest CT dated 03/26/2021. The heart is enlarged noting atherosclerotic calcification of the thoracic artery. There is pulmonary vascular congestion. Airspace opacities are seen throughout both lungs. Chronic fibrotic change is similar to previous. No large pleural effusion or pneumothorax is s een. The skeletal structures are osteopenic. The bony thorax is grossly intact. Degenerative change i s noted in the shoulders and spine. IMPRESSION: 1. Cardiomegaly with pulmonary vascular congestion. 2. Bilateral airspace opacities likely represent pulmonary edema. Correlate clinically for evidence o f a superimposed infectious/inflammatory pneumonitis. Radiographic follow-up to resolution is recomme nded. 3. Findings of chronic/fibrotic lung disease are likely similar to previous.. ACT 112: Negative or not required by law. Electronically signed by: Gilberto Minor M.D. 11/29/2023 3:22 PM
[2023-11-29] MEDS: SODIUM CHLORIDE 0.9% 500 ML IV SCH (15:26)
[2023-11-29 15:37] LABS: Albumin Level 3.7 gm/dl (3.4-5.0); BUN Creatinine Ratio 30.2 (10-20); Bilirubin Direct 0.1 mg/dl (0-0.2); Bilirubin,Total 0.7 mg/dl (0.2-1.0); Calcium 9.6 mg/dl (8.6-10.3); Creatinine Clr Calc Pharmacy 42.6 ml/min; Est GFR (African American) 56.6 ml/min; Est GFR (Non-African American) 48.8 ml/min; Potassium 4.3 mmol/L (3.5-5.1); Total Protein 7.7 gm/dl (6.0-8.3)
--- NOTE | 2023-11-29 15:41 | Emergency Department Note ---
History of Present Illness General Chief complaint: Shortness of Breath/Dyspnea Time Seen by Provider: 11/29/23 14:47 Home Medications Medication Instructions Recorded Confirmed Type pramipexole 0.125 mg tablet 0.125 mg PO TID #270 tabs 02/02/23 06/16/23 Rx carbidopa ER 50 mg-levodopa 200 mg 1 tab PO TID #270 tabs 02/03/23 06/16/23 Rx tablet,extended release gabapentin 300 mg capsule 300 mg PO HS 30 days #90 caps 02/03/23 06/16/23 Rx folic acid 1 mg tablet 1 mg PO DAILY 06/16/23 06/16/23 History lidocaine 4 % topical patch 1 patch topical DAILY PRN NECK PAIN 06/16/23 06/16/23 History (Salonpas (lidocaine)) menthol 0.44 %-zinc oxide 20.6 % 1 applic topical DIRECTED PRN 06/16/23 06/16/23 History topical ointment (Calmoseptine) WOUND CARE NEEDED citalopram 20 mg tablet 20 mg PO HS #90 tabs 11/17/23 Rx entacapone 200 mg tablet 200 mg PO TID #270 tabs 11/17/23 Rx Allergies Allergy/AdvReac Type Severity Reaction Status Date / Time bacitracin Allergy Mild SWELLING Verified 06/16/23 17:50 neomycin Allergy Mild SWELLING Verified 06/16/23 17:50 polymyxin B Allergy Mild SWELLING Verified 06/16/23 17:50 Penicillins Allergy Unknown ON JUNIPER Verified 11/29/23 15:33 [facility] fentanyl AdvReac Mild PASSED OUT Verified 06/16/23 17:50 Past Med/Surg History Problem List (Updated 07/01/23 @ 00:10 by Background David) Interstitial lung disease Fecal retention Encounter for pre-operative examination Back pain (Acute) 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) Chest wall pain (Acute) Flank pain (Acute) Neck pain on left side (Acute) S/P knee surgery Hypertension (Chronic) Unspecified asthma (Acute 01/05/13) History of SCC (squamous cell carcinoma) of skin History of malignant melanoma History of basal cell carcinoma AC joint arthropathy Rotator cuff tendinitis Cervical spondylosis Dyspnea (Acute) Cough (Acute) Respiratory failure with hypoxia Elevated troponin Abnormal CT scan of lung Viral pneumonia Interstitial lung disease Pneumonia (Acute) Generalized weakness Chronic respiratory failure with hypoxia Abnormal urinalysis Sinusitis Elevated troponin Mood disorder Chronic left maxillary sinusitis UTI (urinary tract infection) Anxiety Lumbar canal stenosis (Chronic) Parkinson disease (Chronic) Cervical facet joint syndrome Cervicogenic headache Myofascial pain Medical History (Updated 07/01/23 @ 00:10 by Baljeet Hernandez) Anxiety On home oxygen therapy 2l cont. Hard of hearing History of kidney stones History of skin cancer AND REMOVED Surgical History History of tooth extraction History of anesthesia reaction WAS SENT TO [facility] FOR 3 DAYS TO "RECOVER MY MIND ABILITIES TO HANDLE THINGS" - FOLLOWING BACK SURGERY/[place] ABOUT 7 YRS AGO History of total left knee replacement History of total right knee replacement History of lithotripsy History of back surgery History of hip replacement RIGHT AND LEFT Family History Unknown Cancer Father Prostate cancer Mother No problems noted. Other No family history of adverse response to anesthesia No family history of bleeding disorder Social History Smoking Status: Never smoker Second Hand Exposure: No; Do You Dip or Chew Tobacco: No; Hx Alcohol Use: No Hx Substance Use: No Preferred Language: [place] Communication Ability: Effective Communication Ability Comment: [facility] [employer] Required: No Beliefs That Will Affect Care: Yazidism Yazidism Beliefs: alevism marital status: Current Living Situation: Spouse current occupational status: retired How many Children do You have: 4 Feels Safe at Home: Yes Assistive Devices: Glasses, Oxygen - Continuous and Walker Physical Exam Vital Signs Vital Signs - 24 hr 11/29/23 14:35 11/29/23 14:45 11/29/23 14:46 Temperature 37.7 C H Temperature Source Oral Pulse Rate 119 H Pulse Rate [Apical] Respiratory Rate 12 Respiratory Effort / Characteristics Respiratory Depth Normal Normal Respiratory Pattern Regular Blood Pressure 105/71 Blood Pressure [Right Arm] Blood Pressure Mean 82 Blood Pressure Mean [Right Arm] Pulse Oximetry 85 L Oxygen Delivery Method Nasal Cannula Nasal Cannula Nasal Cannula Oxygen Flow Rate 4 6 6 Sepsis Recent Fever Within 48 Hours No Sepsis New/Unexplained Change in Mental Status No Sepsis Action Taken by Nursing No Action Required 11/29/23 14:50 11/29/23 14:56 11/29/23 15:30 Temperature Temperature Source Pulse Rate 92 H Pulse Rate [Apical] 87 Respiratory Rate 30 H Respiratory Effort / Characteristics Spontaneous Respiratory Depth Normal Respiratory Pattern Regular Blood Pressure Blood Pressure [Right Arm] 103/50 L Blood Pressure Mean Blood Pressure Mean [Right Arm] 67 Pulse Oximetry 96 100 Oxygen Delivery Method Nasal Cannula Nasal Cannula Oxygen Flow Rate 6 6 Sepsis Recent Fever Within 48 Hours Sepsis New/Unexplained Change in Mental Status Sepsis Action Taken by Nursing Course Administered Medications Discontinued Medications Albuterol (Albut/Ipratrop 3mg/0.5mg Neb 3 Ml Vial) 3 ml NEB NOW STA; Protocol Stop: 11/29/23 14:57 Last Admin: 11/29/23 15:19 Dose: 3 ml Documented By: SCARLETT Sodium Chloride (Nss) 500 mls @ 999 mls/hr IV .Q31M CARLEE Stop: 11/29/23 15:30 Last Admin: 11/29/23 15:26 Dose: 999 mls/hr Documented By: SCARLETT Medical Decision Making Laboratory Data 11/29/23 14:52 11/29/23 14:52 Lab Results 11/29/23 Range/Units 14:52 PT Cancelled INR Cancelled APTT Cancelled PTT Ratio Cancelled VBG pH 7.34 L (7.36-7.41) VBG pCO2 56 H (38-50) mmHg VBG pO2 35 mmHg VBG HCO3 30 mmol/L VBG O2 Saturation < 60.0 % VBG Base Excess 3.1 mEq/L Sodium 137 (136-145) mmol/L Potassium 4.3 (3.5-5.1) mmol/L Chloride 102 (98-107) mmol/L Carbon Dioxide 31 (21-32) mmol/L Anion Gap 4 (3-11) BUN 39 H (6-23) mg/dl Creatinine 1.29 (0.6-1.4) mg/dl Est Cr Clr Drug Dosing 42.6 ml/min Est GFR ( Amer) 56.6 ml/min Est GFR (Non-Af Amer) 48.8 ml/min BUN/Creatinine Ratio 30.2 H (10-20) Glucose 132 H (70-99(Fasting)) mg/dl Calcium 9.6 (8.6-10.3) mg/dl Magnesium 2.0 (1.7-2.4) mg/dl Total Bilirubin 0.7 (0.2-1.0) mg/dl Direct Bilirubin 0.1 (0-0.2) mg/dl AST 42 H (13-39) U/L ALT 8 (7-52) U/L Alkaline Phosphatase 65 (34-104) U/L Total Protein 7.7 (6.0-8.3) gm/dl Albumin 3.7 (3.4-5.0) gm/dl Imaging Data Radiologist's Impression: Chest X-Ray 11/29/23 14:50 SINGLE VIEW CHEST CLINICAL HISTORY: Sepsis FINDINGS: An AP, portable, upright chest radiograph is compared to study dated 04/12/2021 and correlated with chest CT dated 03/26/2021. The heart is enlarged noting atherosclerotic calcification of the thoracic artery. There is pulmonary vascular congestion. Airspace opacities are seen throughout both lungs. Chronic fibrotic change is similar to previous. No large pleural effusion or pneumothorax is seen. The skeletal structures are osteopenic. The bony thorax is grossly intact. Degenerative change is noted in the shoulders and spine. IMPRESSION: 1. Cardiomegaly with pulmonary vascular congestion. 2. Bilateral airspace opacities likely represent pulmonary edema. Correlate clinically for evidence of a superimposed infectious/inflammatory pneumonitis. Radiographic follow-up to resolution is recommended. 3. Findings of chronic/fibrotic lung disease are likely similar to previous.. ACT 112: Negative or not required by law. Electronically signed by: Gilberto Minor M.D. 11/29/2023 3:22 PM Discharge Plan Visit Data Chief Complaint: Shortness of Breath/Dyspnea ED Provider: Tian Quinn Forms Stand Alone Forms: My [facility] Prescriptions Prescriptions: No Action pramipexole 0.125 mg tablet 0.125 mg PO TID Qty: 270 3RF Rx Instructions: TAKE 1 TABLET BY MOUTH THREE TIMES DAILY carbidopa-levodopa 50-200 mg tablet extended release 1 tab PO TID Qty: 270 3RF Rx Instructions: TAKE 1 TABLET BY MOUTH 3 TIMES DAILY gabapentin 300 mg capsule 300 mg PO HS 30 Days Qty: 90 3RF citalopram 20 mg tablet 20 mg PO HS Qty: 90 0RF entacapone 200 mg tablet 200 mg PO TID Qty: 270 0RF Rx Instructions: administer at the same time as levodopa/carbidopa dose lidocaine [Salonpas (lidocaine)] 4 % Adhesive Patch,Medicated 1 patch TOPICAL DAILY PRN (Reason: NECK PAIN) Rx Instructions: APPLY FOR 12 HRS, THEN REMOVE AFTER 12 HRS. folic acid 1 mg Tablet 1 mg PO DAILY menthol-zinc oxide [Calmoseptine] 0.44-20.6 % Ointment 1 applic TOPICAL DIRECTED PRN (Reason: WOUND CARE NEEDED) Referrals Referrals: Ольга Marti MD [Primary Care Provider] -
--- NOTE | 2023-11-29 15:42 | Emergency Department Note ---
History of Present Illness General Chief Complaint: Shortness of Breath/Dyspnea Time Seen by Provider: 11/29/23 14:47 History of Present Illness Provider Complaint: shortness of breath and cough Onset (ago): day(s) (2) Consistency/Duration: + progressively worsening Relieved By: + oxygen and + upright position Exacerbated By: + lying flat, + exertion and + coughing Known history of: other (Interstitial lung disease) Associated symptoms: + cough, + wheezing, + sputum production, + orthopnea and + chest congestion; no chest pain, no hemoptysis, no nausea/vomiting or no abdominal pain Treatment prior to arrival: oxygen HPI Narrative: Patient reports fall yesterday Related Data Home oxygen amount: 2 liters Home Medications Medication Instructions Recorded Confirmed Type pramipexole 0.125 mg tablet 0.125 mg PO TID #270 tabs 02/02/23 11/29/23 Rx carbidopa ER 50 mg-levodopa 200 mg 1 tab PO TID #270 tabs 02/03/23 11/29/23 Rx tablet,extended release gabapentin 300 mg capsule 300 mg PO HS 30 days #90 caps 02/03/23 11/29/23 Rx folic acid 1 mg tablet 1 mg PO DAILY 06/16/23 11/29/23 History lidocaine 4 % topical patch 1 patch topical DAILY PRN NECK PAIN 06/16/23 11/29/23 History (Salonpas (lidocaine)) menthol 0.44 %-zinc oxide 20.6 % 1 applic topical DIRECTED PRN 06/16/23 11/29/23 History topical ointment (Calmoseptine) WOUND CARE NEEDED citalopram 20 mg tablet 20 mg PO HS #90 tabs 11/17/23 11/29/23 Rx entacapone 200 mg tablet 200 mg PO TID #270 tabs 11/17/23 11/29/23 Rx Allergies Allergy/AdvReac Type Severity Reaction Status Date / Time bacitracin Allergy Mild SWELLING Verified 11/29/23 15:51 neomycin Allergy Mild SWELLING Verified 11/29/23 15:51 polymyxin B Allergy Mild SWELLING Verified 11/29/23 15:51 Penicillins Allergy Unknown ON JUNIPER Verified 11/29/23 15:51 [facility] MED LIST fentanyl AdvReac Mild PASSED OUT Verified 11/29/23 15:51 Past Med/Surg History Problem List (Updated 11/29/23 @ 18:45 by Tian Quinn MD) Fluid overload (Acute) Pneumonia (Acute) Interstitial lung disease Fecal retention Encounter for pre-operative examination Back pain (Acute) 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) Chest wall pain (Acute) Flank pain (Acute) Neck pain on left side (Acute) S/P knee surgery Hypertension (Chronic) Unspecified asthma (Acute 01/05/13) History of SCC (squamous cell carcinoma) of skin History of malignant melanoma History of basal cell carcinoma AC joint arthropathy Rotator cuff tendinitis Cervical spondylosis Dyspnea (Acute) Cough (Acute) Respiratory failure with hypoxia Elevated troponin Abnormal CT scan of lung Viral pneumonia Interstitial lung disease Pneumonia (Acute) Generalized weakness Chronic respiratory failure with hypoxia Abnormal urinalysis Sinusitis Elevated troponin Mood disorder Chronic left maxillary sinusitis UTI (urinary tract infection) Anxiety Lumbar canal stenosis (Chronic) Parkinson disease (Chronic) Cervical facet joint syndrome Cervicogenic headache Myofascial pain Medical History Anxiety On home oxygen therapy 2l cont. Hard of hearing History of kidney stones History of skin cancer AND REMOVED Surgical History History of tooth extraction History of anesthesia reaction WAS SENT TO [facility] FOR 3 DAYS TO "RECOVER MY MIND ABILITIES TO HANDLE THINGS" - FOLLOWING BACK SURGERY/[facility] ABOUT 7 YRS AGO History of total left knee replacement History of total right knee replacement History of lithotripsy History of back surgery History of hip replacement RIGHT AND LEFT Family History Unknown Cancer Father Prostate cancer Mother No problems noted. 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 Beliefs That Will Affect Care: Nondenominational Nondenominational Beliefs: faith marital status: Current Living Situation: Spouse current occupational status: retired How many Children do You have: 4 Feels Safe at Home: Yes Assistive Devices: Glasses, Oxygen - Continuous and Walker Physical Exam 2 Vital Signs: Vital Signs - 24 hr 11/29/23 14:35 11/29/23 14:45 11/29/23 14:46 Temperature 37.7 C H Temperature Source Oral Pulse Rate 119 H Pulse Rate [Apical ] Pulse Rate from Sp O2 Sensor Respiratory Rate 12 Respiratory Effort / Characteristics Respiratory Depth Normal Normal Respiratory Patter n Regular Blood Pressure 105/71 Blood Pressure [Ri ght Arm] Blood Pressure Dilcia n 82 Blood Pressure Dilcia n [Right Arm] Pulse Oximetry 85 L Oxygen Delivery Me thod Nasal Cannula Nasal Cannula Nasal Cannula Oxygen Flow Rate 4 6 6 Sepsis Recent Feve r Within 48 Hours No Sepsis New/Unexpla ined Change in Men wendy Status No Sepsis Action Take n by Nursing No Action Required 11/29/23 14:50 11/29/23 14:56 11/29/23 15:15 Temperature Temperature Source Pulse Rate 92 H 94 H Pulse Rate [Apical ] Pulse Rate from Sp O2 Sensor 93 H Respiratory Rate 38 H Respiratory Effort / Characteristics Respiratory Depth Respiratory Patter n Blood Pressure 103/46 L Blood Pressure [Ri ght Arm] Blood Pressure Dilcia n 65 Blood Pressure Dilcia n [Right Arm] Pulse Oximetry 96 91 Oxygen Delivery Me thod Nasal Cannula Nasal Cannula Oxygen Flow Rate 6 3 Sepsis Recent Feve r Within 48 Hours Sepsis New/Unexpla ined Change in Men wendy Status Sepsis Action Take n by Nursing 11/29/23 15:30 11/29/23 16:11 11/29/23 16:15 Temperature Temperature Source Pulse Rate Pulse Rate [Apical ] 87 88 88 Pulse Rate from Sp O2 Sensor Respiratory Rate 30 H 28 H 28 H Respiratory Effort / Characteristics Spontaneous Spontaneous Spontaneous Respiratory Depth Normal Respiratory Patter n Regular Blood Pressure Blood Pressure [Ri ght Arm] 103/50 L 90/37 L 108/66 Blood Pressure Dilcia n Blood Pressure Dilcia n [Right Arm] 67 54 80 Pulse Oximetry 100 98 99 Oxygen Delivery Me thod Nasal Cannula Nasal Cannula Nasal Cannula Oxygen Flow Rate 6 4 3 Sepsis Recent Feve r Within 48 Hours Sepsis New/Unexpla ined Change in Men wendy Status Sepsis Action Take n by Nursing 11/29/23 16:15 11/29/23 16:30 11/29/23 16:45 Temperature Temperature Source Pulse Rate 88 87 87 Pulse Rate [Apical ] Pulse Rate from Sp O2 Sensor 88 87 87 Respiratory Rate 31 H 30 H 25 H Respiratory Effort / Characteristics Respiratory Depth Respiratory Patter n Blood Pressure 108/66 103/51 L 104/56 L Blood Pressure [Ri ght Arm] Blood Pressure Dilcia n 80 68 72 Blood Pressure Dilcia n [Right Arm] Pulse Oximetry 98 96 93 Oxygen Delivery Me thod Nasal Cannula Nasal Cannula Nasal Cannula Oxygen Flow Rate 3 3 3 Sepsis Recent Feve r Within 48 Hours Sepsis New/Unexpla ined Change in Men wendy Status Sepsis Action Take n by Nursing 11/29/23 17:15 11/29/23 18:12 Temperature Temperature Source Pulse Rate 83 Pulse Rate [Apical ] 84 Pulse Rate from Sp O2 Sensor Respiratory Rate 28 H Respiratory Effort / Characteristics Non-Labored Sponta neous Respiratory Depth Normal Respiratory Patter n Blood Pressure Blood Pressure [Ri ght Arm] 105/53 L Blood Pressure Dilcia n Blood Pressure Dilcia n [Right Arm] 70 Pulse Oximetry 96 Oxygen Delivery Me thod Nasal Cannula Oxygen Flow Rate 3 Sepsis Recent Feve r Within 48 Hours Sepsis New/Unexpla ined Change in Men wendy Status Sepsis Action Take n by Nursing Physical Exam: Physical Exam HENT: Exam performed. - Head: Normocephalic and atraumatic. EYES: Conjunctivae and EOM are normal. Pupils are equal, round, and reactive to light. Right eye exhibits no discharge. Left eye exhibits no discharge. No scleral icterus. NECK: Normal range of motion. Neck supple. No JVD present. CV: Normal rate, regular rhythm, normal heart sounds and intact distal pulses. There is no peripheral edema. Palpable radial pulses bue. PULM/CHEST: Rhonchi and inspiratory rales bilaterally. Expiratory wheezes bilaterally. ABD: The abdomen is soft. There is no tenderness. There is no rebound, no guarding NEURO: He is alert and oriented to person, place, and time. He has normal strength. No cranial nerve deficit or sensory deficit. Course Course 1447: The patient was evaluated in room A3. A complete history and physical exam was performed Cardiac monitoring: An order was placed for continuous cardiac monitoring. The monitor shows a rate of 90 with sinus rhythm interpreted by me Patient was found to be hypoxic on his normal home oxygen level. Oxygen levels increased which improved his oxygen saturation. 1514: Chest x-ray shows no pneumothorax. There is cardiomegaly with cephalization and possible superimposed infiltrate on my read. IV fluids were canceled. 1535: Lactic acid 2.5. Pharmacy was able to go the patient's previous medical records and patient has had Augmentin without any difficulties. Unasyn will be ordered for possible aspiration pneumonia. 1608: Vital signs stable on nasal cannula. Troponin 2048.5. Patient is not having any chest pain. Procalcitonin 23.3. BioFire pending. 1655: Vital signs stable on supplemental oxygen via nasal cannula. BNP elevated. BioFire negative. Patient will be admitted to the [facility] hospitalist team. Lasix ordered for the patient. Administered Medications Discontinued Medications Albuterol (Albut/Ipratrop 3mg/0.5mg Neb 3 Ml Vial) 3 ml NEB NOW STA; Protocol Stop: 11/29/23 14:57 Last Admin: 11/29/23 15:19 Dose: 3 ml Documented By: SCARLETT Furosemide (Furosemide 40 Mg/4 Ml Vial) 40 mg IV ONE ONE Stop: 11/29/23 16:17 Last Admin: 11/29/23 17:15 Dose: 40 mg Documented By: SCARLETT Sodium Chloride (Nss) 500 mls @ 999 mls/hr IV .Q31M CARLEE Stop: 11/29/23 15:30 Last Infusion: 11/29/23 15:33 Dose: 0 mls/hr Documented By: Admin: 11/29/23 15:26 Dose: 999 mls/hr Documented By: SCARLETT Ampicillin Sodium/Sulbactam Sodium 3,000 mg/ Sodium Chloride 100 mls @ 200 mls/hr IV NOW STA Stop: 11/29/23 16:01 Last Infusion: 11/29/23 16:33 Dose: Infused Documented By: Admin: 11/29/23 16:03 Dose: 200 mls/hr Documented By: TIFFANIE Methylprednisolone (Methylprednisolone 125 Mg/2 Ml Vial) 125 mg IV NOW STA Stop: 11/29/23 15:33 Last Admin: 11/29/23 16:03 Dose: 125 mg Documented By: TIFFANIE Medical Decision Making Laboratory Data Attestation: I reviewed the patient's lab results. 11/29/23 14:52 11/29/23 14:52 Lab Results 11/29/23 11/29/23 11/29/23 Range/Units 14:52 15:00 15:25 WBC 13.17 H (4.8-10.8) K/ul RBC 2.33 L (4.70-6.10) M/uL Hgb 9.0 L (14.0-18.0) g/dl Hct 27.5 L (42.0-52.0) % MCV 118.0 H (80.0-100.0) fL MCH 38.6 H (25.0-34.0) pg MCHC 32.7 (32.0-36.0) g/dL RDW Std Deviation 62.6 H (36.4-46.3) fL RDW Coeff of Clifton 14.4 (11.5-14.5) % Plt Count 87 L (130-400) K/uL MPV 10.8 (9.4-12.4) fL Immature Gran % (Auto) 0.9 % Neut % (Auto) 83.6 % Lymph % (Auto) 10.4 % [place] % (Auto) 4.4 % Eos % (Auto) 0.5 % Baso % (Auto) 0.2 % Neut # (Auto) 11.00 H (1.40-6.50) K/uL Lymph # (Auto) 1.37 (1.20-3.40) K/uL [place] # (Auto) 0.58 (0.11-0.59) K/uL Eos # (Auto) 0.07 (0.00-0.50) K/uL Baso # (Auto) 0.03 (0.00-0.20) K/uL Immature Gran # (Auto) 0.12 (0.01-0.20) K/uL Platelet Estimate Decreased L (Normal) RBC Morphology Unremarkable PT Cancelled INR Cancelled APTT Cancelled PTT Ratio Cancelled VBG pH 7.34 L (7.36-7.41) VBG pCO2 56 H (38-50) mmHg VBG pO2 35 mmHg VBG HCO3 30 mmol/L VBG O2 Saturation < 60.0 % VBG Base Excess 3.1 mEq/L Sodium 137 (136-145) mmol/L Potassium 4.3 (3.5-5.1) mmol/L Chloride 102 (98-107) mmol/L Carbon Dioxide 31 (21-32) mmol/L Anion Gap 4 (3-11) BUN 39 H (6-23) mg/dl Creatinine 1.29 (0.6-1.4) mg/dl Est Cr Clr Drug Dosing 42.6 ml/min Est GFR ( Amer) 56.6 ml/min Est GFR (Non-Af Amer) 48.8 ml/min BUN/Creatinine Ratio 30.2 H (10-20) Glucose 132 H (70-99(Fasting)) mg/dl Lactate 2.5 H* (0.4-2.0) mmol/L Calcium 9.6 (8.6-10.3) mg/dl Magnesium 2.0 (1.7-2.4) mg/dl Total Bilirubin 0.7 (0.2-1.0) mg/dl Direct Bilirubin 0.1 (0-0.2) mg/dl AST 42 H (13-39) U/L ALT 8 (7-52) U/L Alkaline Phosphatase 65 (34-104) U/L Troponin I High Sens 2408.5 H* (0-20) pg/ml B-Natriuretic Peptide 603 H (0-100) pg/ml Total Protein 7.7 (6.0-8.3) gm/dl Albumin 3.7 (3.4-5.0) gm/dl Procalcitonin 23.30 H (0-0.5) ng/ml Adenovirus (PCR) Not Detected (NotDetected) B. pertussis DNA (PCR) Not Detected (NotDetected) B.parapertussis DNA PCR Not Detected (NotDetected) C. pneumoniae DNA (PCR) Not Detected (NotDetected) Coronavirus OC43 (PCR) Not Detected (NotDetected) Coronavirus HKU1 (PCR) Not Detected (NotDetected) Coronavirus 229E (PCR) Not Detected (NotDetected) SARS-CoV-2 (PCR) Not Detected (NotDetected) Coronavirus NL63 (PCR) Not Detected (NotDetected) Human Metapneumovir PCR Not Detected (NotDetected) Influenza Type A (PCR) Not Detected (NotDetected) Influenza Type B (PCR) Not Detected (NotDetected) M. pneumoniae (PCR) Not Detected (NotDetected) Parainfluenza 1 (PCR) Not Detected (NotDetected) Parainfluenza 2 (PCR) Not Detected (NotDetected) Parainfluenza 3 (PCR) Not Detected (NotDetected) Parainfluenza 4 (PCR) Not Detected (NotDetected) RSV (PCR) Not Detected (NotDetected) Entero/Rhino (PCR) Not Detected (NotDetected) 11/29/23 Range/Units 17:23 WBC (4.8-10.8) K/ul RBC (4.70-6.10) M/uL Hgb (14.0-18.0) g/dl Hct (42.0-52.0) % MCV (80.0-100.0) fL MCH (25.0-34.0) pg MCHC (32.0-36.0) g/dL RDW Std Deviation (36.4-46.3) fL RDW Coeff of Clifton (11.5-14.5) % Plt Count (130-400) K/uL MPV (9.4-12.4) fL Immature Gran % (Auto) % Neut % (Auto) % Lymph % (Auto) % [place] % (Auto) % Eos % (Auto) % Baso % (Auto) % Neut # (Auto) (1.40-6.50) K/uL Lymph # (Auto) (1.20-3.40) K/uL [place] # (Auto) (0.11-0.59) K/uL Eos # (Auto) (0.00-0.50) K/uL Baso # (Auto) (0.00-0.20) K/uL Immature Gran # (Auto) (0.01-0.20) K/uL Platelet Estimate (Normal) RBC Morphology PT 13.0 H INR 1.2 H APTT 31 PTT Ratio 1.2 VBG pH (7.36-7.41) VBG pCO2 (38-50) mmHg VBG pO2 mmHg VBG HCO3 mmol/L VBG O2 Saturation % VBG Base Excess mEq/L Sodium (136-145) mmol/L Potassium (3.5-5.1) mmol/L Chloride (98-107) mmol/L Carbon Dioxide (21-32) mmol/L Anion Gap (3-11) BUN (6-23) mg/dl Creatinine (0.6-1.4) mg/dl Est Cr Clr Drug Dosing ml/min Est GFR ( Amer) ml/min Est GFR (Non-Af Amer) ml/min BUN/Creatinine Ratio (10-20) Glucose (70-99(Fasting)) mg/dl Lactate 1.9 (0.4-2.0) mmol/L Calcium (8.6-10.3) mg/dl Magnesium (1.7-2.4) mg/dl Total Bilirubin (0.2-1.0) mg/dl Direct Bilirubin (0-0.2) mg/dl AST (13-39) U/L ALT (7-52) U/L Alkaline Phosphatase (34-104) U/L Troponin I High Sens 1966.7 H* (0-20) pg/ml B-Natriuretic Peptide (0-100) pg/ml Total Protein (6.0-8.3) gm/dl Albumin (3.4-5.0) gm/dl Procalcitonin (0-0.5) ng/ml Adenovirus (PCR) (NotDetected) B. pertussis DNA (PCR) (NotDetected) B.parapertussis DNA PCR (NotDetected) C. pneumoniae DNA (PCR) (NotDetected) Coronavirus OC43 (PCR) (NotDetected) Coronavirus HKU1 (PCR) (NotDetected) Coronavirus 229E (PCR) (NotDetected) SARS-CoV-2 (PCR) (NotDetected) Coronavirus NL63 (PCR) (NotDetected) Human Metapneumovir PCR (NotDetected) Influenza Type A (PCR) (NotDetected) Influenza Type B (PCR) (NotDetected) M. pneumoniae (PCR) (NotDetected) Parainfluenza 1 (PCR) (NotDetected) Parainfluenza 2 (PCR) (NotDetected) Parainfluenza 3 (PCR) (NotDetected) Parainfluenza 4 (PCR) (NotDetected) RSV (PCR) (NotDetected) Entero/Rhino (PCR) (NotDetected) Imaging Data Attestation: I personally reviewed and interpreted this imaging study as follows: My Impression: Chest x-ray shows no pneumothorax. There is cardiomegaly with cephalization and possible superimposed infiltrate on my read. Radiologist's Impression: Chest X-Ray 11/29/23 14:50 SINGLE VIEW CHEST CLINICAL HISTORY: Sepsis FINDINGS: An AP, portable, upright chest radiograph is compared to study dated 04/12/2021 and correlated with chest CT dated 03/26/2021. The heart is enlarged noting atherosclerotic calcification of the thoracic artery. There is pulmonary vascular congestion. Airspace opacities are seen throughout both lungs. Chronic fibrotic change is similar to previous. No large pleural effusion or pneumothorax is seen. The skeletal structures are osteopenic. The bony thorax is grossly intact. Degenerative change is noted in the shoulders and spine. IMPRESSION: 1. Cardiomegaly with pulmonary vascular congestion. 2. Bilateral airspace opacities likely represent pulmonary edema. Correlate clinically for evidence of a superimposed infectious/inflammatory pneumonitis. Radiographic follow-up to resolution is recommended. 3. Findings of chronic/fibrotic lung disease are likely similar to previous.. ACT 112: Negative or not required by law. Electronically signed by: Gilberto Minor M.D. 11/29/2023 3:[address] 11/29/23 14:56 CT cervical spine wo con CLINICAL HISTORY: fall TECHNIQUE: Multidetector row helical CT of the cervical spine was performed without administration of intravenous contrast. Coronal and sagittal reformations were obtained. Automated dose lowering techniques and/or adjustment according to patient size were utilized for this exam. Comparison: Comparison is made to CT cervical spine 02/26/2016 FINDINGS: No acute fractures or subluxations are identified. Degenerative changes are seen in the visualized spine. The alignment is normal. Biapical scarring is seen in the lungs. IMPRESSION: Degenerative changes without evidence of acute bony injury. ACT 112: Negative or not required by law. Electronically signed by: Jose Manzanares M.D. 11/29/2023 4:[address] 11/29/23 14:56 CT SCAN OF THE BRAIN WITHOUT IV CONTRAST CLINICAL HISTORY: Fall. COMPARISON STUDY: CT of the brain dated 04/12/2021. TECHNIQUE: Unenhanced axial CT scan of the brain is performed from the vertex to the skull base. A dose lowering technique was utilized adhering to the principles of ALARA. CT DOSE: 1088.84 mGy.cm FINDINGS: Brain parenchyma: There is age-related involutional change noting advanced confluent subcortical and periventricular microangiopathic disease. There is no hemorrhage, mass effect, or evidence of acute territorial ischemia by CT criteria. Garland-white matter differentiation is preserved. No extra-axial fluid collection is seen. Ventricles, sulci, cisterns: Prominent secondary to involutional change. Intracranial vasculature: There is atherosclerotic calcification of the cavernous carotid and vertebral arteries. Calvarium: The skeletal structures are osteopenic. No depressed calvarial fracture is seen. Sinuses and mastoids: There is mild mucosal thickening in the left maxillary antrum. The remaining visualized paranasal sinuses are clear. The mastoid air cells are well pneumatized. Orbits: The bony orbits are grossly intact. There are bilateral ocular lens implants. IMPRESSION: There is no hemorrhage, mass effect, or evidence of acute territorial ischemia by CT criteria. ACT 112: Negative or not required by law. Electronically signed by: Gilberto Minor M.D. 11/29/2023 4:03 PM ECG Data Attestation: I personally reviewed and interpreted this ECG as follows: Interpretation: Sinus rhythm with a rate of 89. NE 152 QRS [address] elevation or ST depression. Bifascicular block present. [facility] Narrative 1447: The patient was evaluated in room A3. A complete history and physical exam was performed Cardiac monitoring: An order was placed for continuous cardiac monitoring. The monitor shows a rate of 90 with sinus rhythm interpreted by me Patient was found to be hypoxic on his normal home oxygen level. Oxygen levels increased which improved his oxygen saturation. 1514: Chest x-ray shows no pneumothorax. There is cardiomegaly with cephalization and possible superimposed infiltrate on my read. IV fluids were canceled. 1535: Lactic acid 2.5. Pharmacy was able to go the patient's previous medical records and patient has had Augmentin without any difficulties. Unasyn will be ordered for possible aspiration pneumonia. 1608: Vital signs stable on nasal cannula. Troponin 2048.5. Patient is not having any chest pain. Procalcitonin 23.3. BioFire pending. 1655: Vital signs stable on supplemental oxygen via nasal cannula. BNP elevated. BioFire negative. Patient will be admitted to the [facility]ist team. Lasix ordered for the patient. Impression & Plan Pneumonia, Fluid overload Discharge Plan Visit Data Chief Complaint: Shortness of Breath/Dyspnea ED Provider: Tian Quinn Discharge Problem: Pneumonia, Fluid overload Patient Disposition: Admitted As Inpatient Forms Stand Alone Forms: My [facility] Prescriptions Prescriptions: No Action pramipexole 0.125 mg tablet 0.125 mg PO TID Qty: 270 3RF Rx Instructions: TAKE 1 TABLET BY MOUTH THREE TIMES DAILY carbidopa-levodopa 50-200 mg tablet extended release 1 tab PO TID Qty: 270 3RF Rx Instructions: TAKE 1 TABLET BY MOUTH 3 TIMES DAILY gabapentin 300 mg capsule 300 mg PO HS 30 Days Qty: 90 3RF citalopram 20 mg tablet 20 mg PO HS Qty: 90 0RF entacapone 200 mg tablet 200 mg PO TID Qty: 270 0RF Rx Instructions: administer at the same time as levodopa/carbidopa dose lidocaine [Salonpas (lidocaine)] 4 % Adhesive Patch,Medicated 1 patch TOPICAL DAILY PRN (Reason: NECK PAIN) Rx Instructions: APPLY FOR 12 HRS, THEN REMOVE AFTER 12 HRS. folic acid 1 mg Tablet 1 mg PO DAILY menthol-zinc oxide [Calmoseptine] 0.44-20.6 % Ointment 1 applic TOPICAL DIRECTED PRN (Reason: WOUND CARE NEEDED) Referrals Referrals: Ольга Marti MD [Primary Care Provider] - Discharge Problem: Pneumonia Qualifiers: Pneumonia type: due to unspecified organism Laterality: unspecified laterality Lung location: unspecified part of lung Qualified Code(s): J18.9 - Pneumonia, unspecified organism Fluid overload Qualifiers: Hypervolemia type: unspecified Qualified Code(s): E87.70 - Fluid overload, unspecified
[2023-11-29 15:47] LABS: Troponin I High Sensitivity 2408.5 pg/ml (0-20)
[2023-11-29 15:54] LABS: Basophils # (auto) 0.03 K/uL (0.00-0.20); Basophils % (auto) 0.2 %; Eosinophils # (auto) 0.07 K/uL (0.00-0.50); Eosinophils % (auto) 0.5 %; Hematocrit (blood only) 27.5 % (42.0-52.0); Immature Granulocytes # (auto) 0.12 K/uL (0.01-0.20); Immature Granulocytes % (auto) 0.9 %; Lymphocytes # (auto) 1.37 K/uL (1.20-3.40); Lymphocytes % (auto) 10.4 %; Mean Corpuscular Hemoglobin 38.6 pg (25.0-34.0); Mean Corpuscular Hgb Conc 32.7 g/dL (32.0-36.0); Mean Platelet Volume 10.8 fL (9.4-12.4); Monocytes # (auto) 0.58 K/uL (0.11-0.59); Monocytes % (auto) 4.4 %; Neutrophils % (auto) 83.6 %; Platelet Count 87 K/uL (130-400); Platelet Estimate Decreased (Normal); RBC Morphology Unremarkable; RDW Coefficient of Variation 14.4 % (11.5-14.5); RDW Standard Deviation 62.6 fL (36.4-46.3); Red Blood Count 2.33 M/uL (4.70-6.10); White Blood Count 13.17 K/ul (4.8-10.8)
[2023-11-29] MEDS: methylPREDNISolone 125 MG/2 ML VIAL IV STA (16:03)
[2023-11-29] MEDS: AMPICILLIN/SULBACTAM SOD 3,000 MG in SODIUM CHLOR 0.9% MINI-B 100 ML IV STA (16:03)
--- NOTE | 2023-11-29 16:05 | CT Scan Report ---
CT SCAN OF THE BRAIN WITHOUT IV CONTRAST CLINICAL HISTORY: Fall. COMPARISON STUDY: CT of the brain dated 04/12/2021. TECHNIQUE: Unenhanced axial CT scan of the brain is performed from the vertex to the skull base. A do se lowering technique was utilized adhering to the principles of ALARA. CT DOSE: 1088.84 mGy.cm FINDINGS: Brain parenchyma: There is age-related involutional change noting advanced confluent subcortical and periventricular microangiopathic disease. There is no hemorrhage, mass effect, or evidence of acute t erritorial ischemia by CT criteria. Garland-white matter differentiation is preserved. No extra-axial fl uid collection is seen. Ventricles, sulci, cisterns: Prominent secondary to involutional change. Intracranial vasculature: There is atherosclerotic calcification of the cavernous carotid and vertebr al arteries. Calvarium: The skeletal structures are osteopenic. No depressed calvarial fracture is seen. Sinuses and mastoids: There is mild mucosal thickening in the left maxillary antrum. The remaining vi sualized paranasal sinuses are clear. The mastoid air cells are well pneumatized. Orbits: The bony orbits are grossly intact. There are bilateral ocular lens implants. IMPRESSION: There is no hemorrhage, mass effect, or evidence of acute territorial ischemia by CT karon mcneill. ACT 112: Negative or not required by law. Electronically signed by: Gilberto Minor M.D. 11/29/2023 4:03 PM
--- NOTE | 2023-11-29 16:10 | CT Scan Report ---
CT cervical spine wo con CLINICAL HISTORY: fall TECHNIQUE: Multidetector row helical CT of the cervical spine was performed without administration of intravenous contrast. Coronal and sagittal reformations were obtained. Automated dose lowering techn iques and/or adjustment according to patient size were utilized for this exam. Comparison: Comparison is made to CT cervical spine 02/26/2016 FINDINGS: No acute fractures or subluxations are identified. Degenerative changes are seen in the visualized sp ine. The alignment is normal. Biapical scarring is seen in the lungs. IMPRESSION: Degenerative changes without evidence of acute bony injury. ACT 112: Negative or not required by law. Electronically signed by: Jose Manzanares M.D. 11/29/2023 4:08 PM
[2023-11-29 16:11] LABS: Adenovirus PCR Not Detected (NotDetected); Bordetella parapertussis PCR Not Detected (NotDetected); Bordetella pertussis PCR Not Detected (NotDetected); Chlamydia pneumoniae PCR Not Detected (NotDetected); Coronavirus 229E PCR Not Detected (NotDetected); Coronavirus CoV-2 (COVID19)PCR Not Detected (NotDetected); Coronavirus HKU1 PCR Not Detected (NotDetected); Coronavirus NL63 PCR Not Detected (NotDetected); Coronavirus OC43PCR Not Detected (NotDetected); Human Metapneumovirus PCR Not Detected (NotDetected); Influenza A PCR Not Detected (NotDetected); Influenza B PCR Not Detected (NotDetected); Mycoplasma pneumoniae PCR Not Detected (NotDetected); Parainfluenza Virus 1 PCR Not Detected (NotDetected); Parainfluenza Virus 2 PCR Not Detected (NotDetected); Parainfluenza Virus 3 PCR Not Detected (NotDetected); Parainfluenza Virus 4 PCR Not Detected (NotDetected); Respiratory Syncytial VirusPCR Not Detected (NotDetected); Rhinovirus/Enterovirus PCR Not Detected (NotDetected)
--- NOTE | 2023-11-29 16:31 | Electrocardiogram Report ---
Test Reason : Blood Pressure : / mmHG Vent. Rate : 089 BPM Atrial Rate : 089 BPM P-R Int : 152 ms QRS Dur : 126 ms QT Int : 376 ms P-R-T Axes : 062 -54 003 degrees QTc Int : 457 ms Sinus rhythm with Premature supraventricular complexes Right bundle branch block Left anterior fascicular block Bifascicular block Abnormal ECG When compared with ECG of 12-APR-2021 11:40, Premature supraventricular complexes are now Present (RBBB and left anterior fascicular block) is now Present Confirmed by Jovon Horner ([id number]) on 11/29/2023 4:31:21 PM Referred By: Confirmed By:Jovon Horner
[2023-11-29] MEDS: FUROSEMIDE 40 MG/4 ML VIAL IV ONE (17:15)
--- NOTE | 2023-11-29 17:16 | History & Physical Report ---
Date of Service November 29, 2023 Assessment & Plan (1) Acute on chronic hypoxic respiratory failure: (2) Sepsis: (3) Pneumonia: (4) Interstitial lung disease: (5) Parkinson disease: (6) Hypertension: (7) Mood disorder: (8) BPH (benign prostatic hyperplasia): Plan This is an 88-year-old male from [facility] with PMH of chronic interstitial lung disease on 2-3 L nasal cannula at baseline, Parkinson's disease, BPH, thrombocytopenia, anxiety and other medical problems listed below presents from home with worsening shortness of breath. Acute on chronic hypoxic respiratory failure In setting of pneumonia, chronic ILD on 2 to 3 L at baseline Weaned back to 3 L nasal cannula and now saturating at 96% Continue supplemental oxygen Sepsis Pneumonia RR 28, HR initially 119, temp 37.7, WBC 13 K, Pro-Garcia 23, lactate 2.5 -> 1.9 after fluids Respiratory viral panel negative CXR with cardiomegaly with pulmonary vascular congestion. Bilateral airspace opacities likely represent pulmonary edema. Per family, concern for aspiration Recently transition to pured diet,nectar thick liquids at [facility] Will broaden antibiotics to Zosyn, Doxy given sepsis criteria, still covering for possible aspiration * PCN allergy listed but checked with pharmacy, has received Augmentin and Unasyn previously without issue Will not give add'l fluids at this time given appearance of volume overload Speech eval Fall prior to arrival Denies head trauma, small skin tear on arm CT head without acute intracranial change Fall precautions PT/OT eval Volume overload Troponin elevation Given 500ml NSS and 40mg IV lasix in ED BNP 603 CXR with cardiomegaly with pulmonary vascular congestion Most recent echo from March 2021 with EF 55 to 60%, normal left wall motion, grade 1 diastolic dysfunction Repeat 2D echo ordered Monitor volume status, renal function in AM to determine need for continued diuretics JOSE superimposed on CKD Cr 1.29 (baseline ~ 0.7). Monitor with daily BMP Troponin elevation No chest pain EKG reviewed with sinus rhythm of [address] changes. Bifascicular block present HS troponin 2408.5 -> 1966.7 Parkinson's disease Stable. Continue carbidpa-levodopa Mood disorder Continue Celexa HS BPH Continue tamsulosin Thrombocytopenia Plt 87 (lower end of baseline range) Monitor with CBC DVT Ppx: SQ heparin Q12 Code status: DNR/DNI per discussion with POA Megan ([phone]) PCP: Figueroa Dispo: Admitted to PCU Patient seen in collaboration with Dr. Mercer. Please see addendum. I spent a total of 75 minutes coordinating, documenting, and providing care for this patient excluding time spent in the performance of separately billed services. History of Present Illness Chief Complaint: Shortness of breath Primary Care Provider: Ольга Marti MD This is an 88-year-old male from [facility] with PMH of chronic interstitial lung disease on 2-3 L nasal cannula at baseline, Parkinson's disease, BPH, thrombocytopenia, anxiety and other medical problems listed below presents from home with worsening shortness of breath. Endorses dry cough, SOB and congestion x 2 days. Shortness of breath worsened when lying flat. Denies known aspiration. Has to eat food cut up due to underlying Parkinson's. Denies any hemoptysis. Does report a fall yesterday when he lost his balance and fell back on rug. No chest pain. Denies head trauma or LOC. No F/C, headache, palpitations, N/V, abd pain, dysuria, diarrhea. + chronic constipation. Most recent echo from March 2021 with EF 55 to 60%, normal left wall motion, grade 1 diastolic dysfunction. Per discussion with daughter Megan (CAROLYN) over the phone- patient is on a pured diet with nectar thick liquids. Concern for aspirating although [facility] recently transitioned liquids to nectar thick. Has also started to give him Ensure since appetite was decreased. Is a DNR/DNI per [facility]. Allergies Allergy/AdvReac Type Severity Reaction Status Date / Time bacitracin Allergy Mild SWELLING Verified 11/29/23 15:51 neomycin Allergy Mild SWELLING Verified 11/29/23 15:51 polymyxin B Allergy Mild SWELLING Verified 11/29/23 15:51 Penicillins Allergy Unknown ON [facility] Verified 11/29/23 15:51 [facility] MED LIST fentanyl AdvReac Mild PASSED OUT Verified 11/29/23 15:51 Home Medications Medication Instructions Recorded Confirmed Type pramipexole 0.125 mg tablet 0.125 mg PO TID #270 tabs 02/02/23 11/29/23 Rx carbidopa ER 50 mg-levodopa 200 mg 1 tab PO TID #270 tabs 02/03/23 11/29/23 Rx tablet,extended release gabapentin 300 mg capsule 300 mg PO HS 30 days #90 caps 02/03/23 11/29/23 Rx folic acid 1 mg tablet 1 mg PO DAILY 06/16/23 11/29/23 History lidocaine 4 % topical patch 1 patch topical DAILY PRN NECK PAIN 06/16/23 11/29/23 History (Salonpas (lidocaine)) menthol 0.44 %-zinc oxide 20.6 % 1 applic topical DIRECTED PRN 06/16/23 11/29/23 History topical ointment (Calmoseptine) WOUND CARE NEEDED citalopram 20 mg tablet 20 mg PO HS #90 tabs 11/17/23 11/29/23 Rx entacapone 200 mg tablet 200 mg PO TID #270 tabs 11/17/23 11/29/23 Rx cholecalciferol (vitamin D3) 125 125 mcg PO DAILY 11/29/23 11/29/23 History mcg (5,000 unit) tablet (Vitamin D3) propylene glycol 1 %-glycerin 0.3 1 drp ophthalmic (eye) DAILY PRN 11/29/23 11/29/23 History % eye drops Dry Eye(S) tamsulosin 0.4 mg capsule 0.4 mg PO HS 11/29/23 11/29/23 History Past Med/Surg History Problem List Acute on chronic hypoxic respiratory failure Sepsis Pneumonia (Acute) Interstitial lung disease Back pain (Acute) 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) Chest wall pain (Acute) Flank pain (Acute) Neck pain on left side (Acute) S/P knee surgery Hypertension (Chronic) Unspecified asthma (Acute 01/05/13) History of SCC (squamous cell carcinoma) of skin History of malignant melanoma History of basal cell carcinoma AC joint arthropathy Rotator cuff tendinitis Cervical spondylosis Dyspnea (Acute) Cough (Acute) Respiratory failure with hypoxia Elevated troponin Abnormal CT scan of lung Viral pneumonia Interstitial lung disease Pneumonia (Acute) Generalized weakness Chronic respiratory failure with hypoxia Abnormal urinalysis Sinusitis Elevated troponin Mood disorder Chronic left maxillary sinusitis UTI (urinary tract infection) Anxiety Lumbar canal stenosis (Chronic) Parkinson disease (Chronic) Cervical facet joint syndrome Cervicogenic headache Myofascial pain Medical History BPH (benign prostatic hyperplasia) Anxiety On home oxygen therapy 2l cont. Hard of hearing History of kidney stones History of skin cancer AND REMOVED Surgical History History of tooth extraction History of anesthesia reaction WAS SENT TO [facility] FOR 3 DAYS TO "RECOVER MY MIND ABILITIES TO HANDLE THINGS" - FOLLOWING BACK SURGERY/DAFNE KUNZ ABOUT 7 YRS AGO History of total left knee replacement History of total right knee replacement History of lithotripsy History of back surgery History of hip replacement RIGHT AND LEFT Family History Unknown Cancer Father Prostate cancer Mother No problems noted. Other No family history of adverse response to anesthesia No family history of bleeding disorder Social History Smoking Status: Never smoker Second Hand Exposure: No; Do You Dip or Chew Tobacco: No; Hx Alcohol Use: No Hx Substance Use: No Preferred Language: Hebrew Communication Ability: Effective Communication Ability Comment: [facility] Manager [employer] Required: No Beliefs That Will Affect Care: Orthodoxy Orthodoxy Beliefs: confucianist marital status: Current Living Situation: Spouse current occupational status: retired How many Children do You have: 4 Feels Safe at Home: Yes Assistive Devices: Glasses, Oxygen - Continuous and Walker Review of Systems Review of Systems: At least ten systems reviewed and negative except as noted in the HPI. Physical Exam Physical Exam: Please see Dr. Mercer's addendum for physical exam. Results & Data Results & Data Vital Signs (Past 12 Hours) Vital Signs Temp Pulse Pulse Resp BP BP Pulse Ox 11/29/23 16:15 88 28 H 108/66 99 11/29/23 16:11 88 28 H 90/37 L 98 11/29/23 15:30 87 30 H 103/50 L 100 11/29/23 14:56 92 H 11/29/23 14:50 96 11/29/23 14:46 11/29/23 14:45 11/29/23 14:35 37.7 C H 119 H 12 105/71 85 L O2 Del Method O2 Flow Rate 11/29/23 16:15 Nasal Cannula 3 11/29/23 16:11 Nasal Cannula 4 11/29/23 15:30 Nasal Cannula 6 11/29/23 14:56 11/29/23 14:50 Nasal Cannula 6 11/29/23 14:46 Nasal Cannula 6 11/29/23 14:45 Nasal Cannula 6 11/29/23 14:35 Nasal Cannula 4 Laboratory Results Short CBC 11/29/23 Range/Units 14:52 WBC 13.17 H (4.8-10.8) K/ul Hgb 9.0 L (14.0-18.0) g/dl Hct 27.5 L (42.0-52.0) % Plt Count 87 L (130-400) K/uL BMP 11/29/23 14:52 Sodium 137 Potassium 4.3 Chloride 102 Carbon Dioxide 31 BUN 39 H Creatinine 1.29 Glucose 132 H Calcium 9.6 Liver Function 11/29/23 Range/Units 14:52 Total Bilirubin 0.7 (0.2-1.0) mg/dl Direct Bilirubin 0.1 (0-0.2) mg/dl AST 42 H (13-39) U/L ALT 8 (7-52) U/L Alkaline Phosphatase 65 (34-104) U/L Albumin 3.7 (3.4-5.0) gm/dl Diagnostic Findings Chest X-Ray 11/29/23 14:50 SINGLE VIEW CHEST CLINICAL HISTORY: Sepsis FINDINGS: An AP, portable, upright chest radiograph is compared to study dated 04/12/2021 and correlated with chest CT dated 03/26/2021. The heart is enlarged noting atherosclerotic calcification of the thoracic artery. There is pulmonary vascular congestion. Airspace opacities are seen throughout both lungs. Chronic fibrotic change is similar to previous. No large pleural effusion or pneumothorax is seen. The skeletal structures are osteopenic. The bony thorax is grossly intact. Degenerative change is noted in the shoulders and spine. IMPRESSION: 1. Cardiomegaly with pulmonary vascular congestion. 2. Bilateral airspace opacities likely represent pulmonary edema. Correlate clinically for evidence of a superimposed infectious/inflammatory pneumonitis. Radiographic follow-up to resolution is recommended. 3. Findings of chronic/fibrotic lung disease are likely similar to previous.. ACT 112: Negative or not required by law. Electronically signed by: Gilberto Minor M.D. 11/29/2023 3:[address] 11/29/23 14:56 CT cervical spine wo con CLINICAL HISTORY: fall TECHNIQUE: Multidetector row helical CT of the cervical spine was performed without administration of intravenous contrast. Coronal and sagittal reformations were obtained. Automated dose lowering techniques and/or adjustment according to patient size were utilized for this exam. Comparison: Comparison is made to CT cervical spine 02/26/2016 FINDINGS: No acute fractures or subluxations are identified. Degenerative changes are seen in the visualized spine. The alignment is normal. Biapical scarring is seen in the lungs. IMPRESSION: Degenerative changes without evidence of acute bony injury. ACT 112: Negative or not required by law. Electronically signed by: Jose Manzanares M.D. 11/29/2023 4:[address] 11/29/23 14:56 CT SCAN OF THE BRAIN WITHOUT IV CONTRAST CLINICAL HISTORY: Fall. COMPARISON STUDY: CT of the brain dated 04/12/2021. TECHNIQUE: Unenhanced axial CT scan of the brain is performed from the vertex to the skull base. A dose lowering technique was utilized adhering to the principles of ALARA. CT DOSE: 1088.84 mGy.cm FINDINGS: Brain parenchyma: There is age-related involutional change noting advanced confluent subcortical and periventricular microangiopathic disease. There is no hemorrhage, mass effect, or evidence of acute territorial ischemia by CT criteria. Garland-white matter differentiation is preserved. No extra-axial fluid collection is seen. Ventricles, sulci, cisterns: Prominent secondary to involutional change. Intracranial vasculature: There is atherosclerotic calcification of the cavernous carotid and vertebral arteries. Calvarium: The skeletal structures are osteopenic. No depressed calvarial fracture is seen. Sinuses and mastoids: There is mild mucosal thickening in the left maxillary antrum. The remaining visualized paranasal sinuses are clear. The mastoid air cells are well pneumatized. Orbits: The bony orbits are grossly intact. There are bilateral ocular lens implants. IMPRESSION: There is no hemorrhage, mass effect, or evidence of acute territorial ischemia by CT criteria. ACT 112: Negative or not required by law. Electronically signed by: Gilberto Minor M.D. 11/29/2023 4:03 PM ECG Additional Comments: EKG reviewed with sinus rhythm of [address] changes. Bifascicular block present. Supervising Physician Co-Signing Physician Notes Patient is an 88-year-old male with history of interstitial lung disease, chronic respiratory failure with hypoxia on 2 to 3 L supplemental oxygen at baseline, Parkinson's disease and other medical problems presents with history of worsening shortness of breath, intermittent none expectorant cough and congestion since 2 days duration. He denies any recent aspiration issues. Patient is a poor historian secondary to hearing impairment. Patient admits to have a fall yesterday but denies any head trauma, loss of consciousness. Please review HPI for complete details of presentation. Blood work suggestive of leukocytosis 13 K, chronic anemia hemoglobin 9.0, thrombocytopenia 87 K, glucose 132, lactic acid 2.5, AST 42, troponin 2408, BNP 603. Procalcitonin elevated at 23.3. Urine analysis within normal limits. BioFire negative. Chest x-ray showed findings suggestive of pulmonary vascular congestion, bilateral airspace opacities, chronic fibrotic lung disease changes. CT head and neck showed no acute findings. Physical Exam: Vitals signs as noted above General Appearance:Moderately built and nourished, no apparent distress Head: normocephalic, Atraumatic Eyes: normal inspection, EOMI Neck: supple, Trachea midline Respiratory/Chest: Decreased breath sounds, bilateral basal crackles, No accessory muscle use Cardiovascular: S1, S2, No murmur Abdomen/GI:Soft, Non tender, Bowel sounds present Extremities/Musculoskeletal:normal inspection, trace pedal edema Neurologic/Psych:AAOX3, grossly no focal neurological deficits , + hearing impairment Skin: normal color, warm Acute on chronic respiratory failure with hypoxia Chronic oxygen dependency Sepsis secondary to pneumonia Lactic acidosis Chronic anemia Acute kidney injury Troponin elevation likely demand ischemia Fall Elevated BNP Lactic acidosis resolved with IV fluids Blood cultures obtained Started on broad-spectrum antibiotics with Zosyn, Doxy obtain resting echo Continue supplemental oxygen Will consider adding steroids if patient develops wheezing Aspiration, fall precautions PT OT, speech therapy evaluation Monitor renal function Avoid nephrotoxic agents as able Reassess volume status closely I personally interviewed and examined at bedside. Patient's care is coordinated with Daisha Sainz PA-C. I have reviewed the advanced practitioner's documentation, and I agree with plan of care. Please refer to the documentation above for details of patient's presentation and for discussion of other issues. I spent a total of52 minutes coordinating, documenting, and providing care for this patient excluding time spent in the performance of separately billed services. (3) Pneumonia Laterality: unspecified laterality Lung location: unspecified part of lung Pneumonia type: due to unspecified organism Qualified Code(s): J18.9 - Pneumonia, unspecified organism
[2023-11-29 18:14] LABS: INR 1.2 (0.9-1.1); Partial Thromboplastin Ratio 1.2; Partial Thromboplastin Time 31 Seconds (21-31)
[2023-11-29 19:14] LABS: Appearance Urine Clear (Clear); Bilirubin Urine Negative (Negative); Blood Urine Negative (Negative); Color Urine Yellow; Glucose Urine UA Negative (Negative); Ketones Urine Negative (Negative); Leukocyte Esterase Urine Negative (Negative); Nitrite Urine Negative (Negative); Protein Urine Negative (Negative); Specific Gravity Urine 1.011 (1.000-1.030); Urobilinogen Urine Negative (Negative); pH Urine 5.5 (4.5-7.5)
[2023-11-29] MEDS ORDERED: MENTHOL-ZINC OXIDE 360 APPLN/120 GM TUBE EXT PRN (20:05)
[2023-11-29] MEDS ORDERED: ONDANSETRON INJ 2 MG/ML 2 ML VIAL IV PRN (20:05)
[2023-11-29] MEDS ORDERED: ACETAMINOPHEN 325 MG TAB PO PRN (20:05)
[2023-11-29] MEDS ORDERED: POLYETHYLENE (MIRALAX) 17 GM PACK PO PRN (20:05)
[2023-11-29] MEDS ORDERED: LEVALBUTEROL HCL 0.63 MG/3 ML NEB NEB PRN (20:05)
[2023-11-29] MEDS: DOXYCYCLINE HYCLATE 100 MG in DEXTROSE 5% MINI-B 100 ML IV ONE (20:08)
[2023-11-29] MEDS ORDERED: ARTIFICIAL TEARS OP PRN (20:13)
[2023-11-29] MEDS ORDERED: LIDOCAINE 5% 1 PATCH TD PRN (20:15)
[2023-11-29] MEDS: PIPER/TAZO 4.5g in D5W MINI-B 100 ML IV ONE (20:25)
[2023-11-29] MEDS: CARBIDOPA/LEVODOPA 50/200MG EXT REL TAB PO SCH (21:07)
[2023-11-29] MEDS: TAMSULOSIN HCL 0.4 MG CAP PO SCH (21:08)
[2023-11-29] MEDS: GABAPENTIN 300 MG CAP PO SCH (21:08)
[2023-11-29] MEDS: PRAMIPEXOLE DIHYDROCHLO 0.25 MG TAB PO SCH (21:09)
[2023-11-29] MEDS: ENTACAPONE 200 MG TAB PO SCH (21:10)
[2023-11-29] MEDS: CITALOPRAM 20 MG TAB PO SCH (21:10)
[2023-11-29] MEDS: HEPARIN SOD 5,000 UNIT/0.5 ML VIAL SQ SCH (21:10)
[2023-11-30] MEDS: PIPERACILLIN/TAZOBACTAM 4.5 GM in DEXTROSE 5% MINI-B 100 ML IV SCH (02:44)
[2023-11-30 06:06] LABS: Hematocrit (blood only) 23.5 % (42.0-52.0); Hemoglobin 7.9 g/dl (14.0-18.0); Mean Corpuscular Hemoglobin 38.5 pg (25.0-34.0); Mean Corpuscular Hgb Conc 33.6 g/dL (32.0-36.0); Mean Corpuscular Volume 114.6 fL (80.0-100.0); Mean Platelet Volume 11.3 fL (9.4-12.4); Platelet Count 64 K/uL (130-400); RDW Coefficient of Variation 13.9 % (11.5-14.5); RDW Standard Deviation 58.4 fL (36.4-46.3); Red Blood Count 2.05 M/uL (4.70-6.10); White Blood Count 6.78 K/ul (4.8-10.8)
[2023-11-30 06:13] LABS: BUN Creatinine Ratio 31.5 (10-20); Calcium 8.9 mg/dl (8.6-10.3); Creatinine Clr Calc Pharmacy 41.9 ml/min; Est GFR (African American) 59.4 ml/min; Est GFR (Non-African American) 51.2 ml/min; Potassium 4.1 mmol/L (3.5-5.1)
[2023-11-30 06:22] LABS: Troponin I High Sensitivity 1107.3 pg/ml (0-20)
[2023-11-30] MEDS: DOXYCYCLINE HYCLATE 100 MG in DEXTROSE 5% MINI-B 100 ML IV SCH (06:22)
--- OUTSIDE RECORDS SUMMARY | 2023-11-30 06:30 | External Medical Summary | Summary of Care ---
Author Name Unknown Organization [facility] Address [address] [facility] [place] [address] Phone [phone] Care Team Providers Care Station Air Traffic Control Specialist Name Role Phone Ольга Marti MD Primary Care Provider [phone] Reason for Referral * Evaluate & Treat - Unlimited Visits (Within 10 days (routine)) - Authorized Specialty Diagnoses / Procedures Referred By Ebony gonzalez Referred To Contact Pulmonary Diseases / Pulmonary Diagnoses SOB (shortness of breath) Bronwyn Ibarra CRNP [address] [place] [address] Referral ID Status Reason Start Date Expiration Date Visits Requested Visits Authorized [id number] Authorized Specialty Services Required 07/26/[phone] Question Answer Referral Priority Within 10 days (routine) Where should this appointment be scheduled? [facility] Primary Reason for Referral? Other Comments SOB Encounter Details Date Type Department Care Team (Late st Contact Info) Description 07/26/2023 Orders Only Access Center, [facility] [address] [facility] *DO NOT REMOVE THIS DEPARTMENT* [place] [id number] Request, External Referral SOB (shortness of breath)* Allergies Active Allergy Reactions Criticality Noted Date Comments Bacitracin Edema Other Low 02/23/2023 Fentanyl And Related High 08/09/2013 Neomycin-Bacitracin Zn-Polymyx 04/23 Penicillins 12/01/2017 Muscle stiffness documented as of this encounter (statuses as of 07/26/2023) Medications Medication Sig Dispensed Refills Start Date End Date Status GABAPENTIN 300 MG PO CAPS one cap daily 0 05/06/2014 Active acetaminophen (TYLENOL) 500 MG TabletIndications:Pe rsonal history of fall,Cervicalgia,Spa sm of muscle Take 2 Tabs by mouth every 8 hours as needed for Pain or Fever. 100 Tab 0 02/04/2016 Active Propylene Glycol-Glycerin 1-0.3 % Ophthalmic Solution Instill 1 Drop into eye daily as needed. 0 05/24/2016 Active Carbidopa-Levodopa ER 50-200 MG Oral Tablet Extended ReleaseIndications:P arkinson's disease Take 1 Tablet by mouth in the morning and 1 Tablet at noon and 1 Tablet before bedtime. -Karen- st 07/28, g 01/2017. 90 Tab 5 05/30/2017 Active Timolol Hemihydrate 0.25 % SOLN 1 drop both eyes daily - 0 05/30/2017 Active Cyanocobalamin ER (B-12 TR) 1000 MCG TBCRIndications:Low serum vitamin B12,Macrocytosis without anemia one pill each day---resume per 10/08/2018 0 10/08/2018 Active Additional Information Patient taking differently: 200 mcg Oral Daily(AM), (No instructions reported), Reported on 01/23/2023 pramipexole (MIRAPEX) 0.125 MG Tablet Take 1 Tablet by mouth in the morning and 1 Tablet at noon and 1 Tablet before bedtime. 0 Active Albuterol Sulfate (PROAIR HFA) 108 (90 Base) MCG/ACT AERSIndications:Database Security Expert naomi interstitial lung disease (HCC) Inhale 2 Puffs by mouth every 4 hours as needed for Wheezing or Dyspnea. 1 Inhaler 1 06/03/2019 Active entacapone (COMTAN) 200 MG TabletIndications:Pa rkinson's disease Take 1 Tablet by mouth in the morning and 1 Tablet at noon and 1 Tablet before bedtime. Rx [place]. 0 02/14/2020 Active Timolol Maleate 0.5 % Ophthalmic Solution (Timoptic) 0 02/01/2021 Activ e Vitamin D3 1.25 MG (14406 UT) Oral Capsule Take 1 Capsule by mouth once a week. x3 months, then 1,000 units daily 12 Capsule 0 09/22/2022 Active Tamsulosin HCl 0.4 MG Oral Capsule (Flomax)Indications: BPH with obstruction/lower urinary tract symptoms Take 1 Capsule by mouth at bedtime. St 01/23/2023 30 Capsule 2 01/23/2023 Active Dicyclomine HCl 10 MG Oral Capsule (Bentyl)Indications: Lower abdominal pain,Other constipation Take 1 Capsule by mouth 2 times a day as needed for Cramping. For abdominal pain 60 Capsule 0 01/23/2023 Active Citalopram Hydrobromide 10 MG Oral Tablet (CeleXA)Indications: Anxiety Take 2 Tablets by mouth in the morning. -dose inc neurology 10/18/22. 90 Tablet 3 01/23/2023 Active Calmoseptine 0.44-20.6 % External Ointment (Menthol-Zinc Oxide)Indications:Pr essure injury of buttock, unstageable, unspecified laterality (HCC) Apply topically to affected area as needed for Wound Care. On buttock 100 g 0 04/28/2023 Active Lidocaine 4 % External Patch (Salonpas Pain Relieving)Indication s:Parkinson's disease, unspecified whether dyskinesia present, unspecified whether manifestations fluctuate,Neck pain Place 1 Patch over 12 hours topically on the skin daily as needed (neck pain). 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 Pancreatic cyst 09/22/2022 Abdominal aortic ectasia 09/22/2022 Hx of actinic keratosis 11/22/2019 Thrombocytopenia 02/02/2018 Macrocytic anemia 12/01/2017 Low serum vitamin B12 05/30/2017 Overview: 01/26 Advanced care planning/counseling discussion Overview: 12/26-bring in copy S/P lumbar laminectomy 05/24/2016 Seasonal allergic rhinitis 05/24/2016 Hx of nonmelanoma skin cancer 05/24/2016 Overview: BCC R nasal root 09/2018, SCC L superior helix 08/2015, SCC R forearm 05/2013, SCC L forearm 02/2013, SCCIS R elbow and neck 08/2008, BCC L upper back 2007 ([facility] [facility], [facility]) Chronic interstitial lung disease 05/24/2016 Overview: 05/27-PFT:restrictive pattern -moderate degree,worse from 2013., pulm eval 06/16/16>09/26-.bronchitis -I St flovent -12/26 n/u DDD (degenerative disc disease), cervical 2015 Status post total bilateral knee replacement Cerebral microvascular disease 02/04/2016 Overview: Mri brain 01/03/17-mv chg,old lac infarcts Status post bilateral hip replacements 4 Parkinson's disease 10/24/2012 History of kidney stones 01/11/2012 Overview: 10/21-7 mm left stone with HN-had stent Neuropathy 01/11/2012 Anxiety 05/17/2011 Atherosclerosis of both carotid arteries 011 DIVERTICULOSIS OF COLON 04/04/2006 GENERAL OSTEOARTHROSIS 04/04/2006 SPINAL STENOSIS-LUMBAR 04/04/2006 documented as of this encounter (statuses as of 07/26/2023) Resolved Problems Problem Noted Date Diagnosed Date Resolved Date Orbital fracture 02/06/2013 12/27/2016 Cerebrovascular disease, art eriosclerotic, post-stroke 12/28/2010 05/24/2016 ADVANCE DIRECTIVE INFORMATION 08/23/2007 12/27/2016 Overview: Yes, Patient instructed to provide copy of advance directive for provider to review and to be scanned into Electronic Medical Record documented as of this encounter (statuses as of 07/26/2023) Immunizations Name Administration Dates Next Due COVID-19 mRNA, LNP-s, No Pre serve, 2-Dose Series (RoomClip) 03/16/2021,08/07/2020,07/17/2020 Pneumococcal Conjugate Vacc, 13 Valent (Prevnar) 10/01/2014 Season Influenza, Quad, PF, Adjuvanted, 65+ Yrs, IM (FLUAD) 02/14/2020 Seasonal Influenza Virus Vac cine, Unspecified Formulation 02/22/2021,02/14/2020,03/07/2018,2016,03/30/2016,02/17/2015,02/10/2014,1 06/12/2012,03/15/2012,03/22/2011, 010,03/02/2009,03/27/2008,03/12/2007,,03/29/2005 Seasonal Influenza, PF, 6 M & above, IM , (FluLaval or Fluzone) 03/07/2018 Seasonal Influenza, Quadriva lent Hd (Fluzone Hd) 04/03/2023,02/22/2021 Seasonal Influenza, Quadriva lent, No Preserve, IM 02/23/2017,03/30/2016 Seasonal Influenza, Split, I IV3, With Preserve, Inj 02/17/2015,02/10/2014,04/12/2013,2011,03/22/2011,03/22/2010,03/02/2009,1 ,03/12/2007,04/04/2006 Seasonal Influenza, Trivalen t, Adjuvanted, 65+ yrs 02/20/2019 TD - Tetanus/Diptheria (ADULT) 01/19/2016 TD, Preservative Free 01/19/2016,03/15/2010,04/12 TDAP (age 10 and older)(Boostrix) 03/15/2010 Zoster Vaccine Recombinant (Shingrix) 05/25/2019 ,01/22/2019 documented as of this encounter Social History Tobacco Use Types Packs/Day Years Used Date Smoking Tobacco: Never Smokeless Tobacco: Never Alcohol Use Standard Drinks/Week Comments Not Currently 0 (1 standard drink = 0.6 oz pur e alcohol) occ PHQ-2 Answer Date Recorded PHQ Adult Total Score 0 01/23/2023 Hunger Vital Sign Answer Date Recorded Worried About Running Out of Food in the Last Ye ar Never true 02/14/2020 Ran Out of Food in the Last Year Never true 02/14/2020 Sex and Gender Information Value Date Recorded Sex Assigned at Male 10/08/2018 3:42 PM EDT Gender Identity Male 10/08/2018 3:42 PM EDT Sexual Orientation Straight 10/08/2018 3: 42 PM EDT Job Start Date Occupation Industry Not on file Not on file Not on file documented as of this encounter Plan of Treatment Upcoming Encounters Date Type Department Care Team (Late st Contact Info) Description 08/04/2023 9:40 AM EST Office Visit Pulmonary Medicine, [facility] [address] [place] [address] Tucker Pelletier MD [address] [place] [phone] Scheduled Referrals Name Type Priority Associated Diagnoses Orde r Schedule PULMONARY REFERRAL OP Referral Within 10 days (routine) SOB (shortness of breath) Ordered: 07/26/2023 Health Maintenance Due Date Last Done Comments COVID-19 Vaccine ( season) 2023 03/16/2021, 08/07/2020, 07/17/2020 Depression Screening 01/24/2024 01/23/2023 DTaP,Tdap,and Td Vaccines (5 - Td or Tdap) 01/18/2026 01/19/2016, 01/19/2016, 03/15/2010, Additional history exists Pneumococcal Vaccine: 65+ Years Completed 10/01/2014, 03/29/2005 Influenza Vaccine (FLU shot) Completed , 02/22/2021, 02/22/2021, Additional history exists GARDASIL-HPV IMMUNIZATION SERIES Aged Out No longer eligible based on patient's age to complete this topic Hepatitis B Aged Out No longer eligi ble based on patient's age to complete this topic MENINGOCOCCAL (MENACTRA/MENVEO) Aged Out No longer eligible based on patient's age to complete this topic documented as of this encounter Medical Devices Not on filedocumented as of this encounter Visit Diagnoses Diagnosis SOB (shortness of breath)- Primary Shortness of breath documented in this encounter Care Teams Station Air Traffic Control Specialist Relationship Specialty Start Date End Date Ольга Marti MD [address] [place] [address] PCP - General Internal Medicine 05/13/16 documented as of this encounter
[2023-11-30] MEDS: CHOLECALCIFEROL 125 MCG (5,000 UNITS) TAB PO SCH (08:51)
[2023-11-30] MEDS: FOLIC ACID 1 MG TAB PO SCH (08:51)
[2023-11-30] MEDS: FUROSEMIDE INJ 20 MG/2 ML VIAL IV SCH (08:53)
--- NOTE | 2023-11-30 09:14 | Cardiology Consultation ---
Date of Consultation November 30, 2023 Assessment & Plan (1) Acute on chronic hypoxic respiratory failure: (2) Sepsis: (3) Pneumonia: (4) Interstitial lung disease: (5) Elevated troponin: Plan Assessment: 88 year-old male with no prior cardiac history presents with acute URI symptoms and likely pneumonia. Presence of elevated troponin with request for cardiac evaluation. Plan: 1. Acute on Chronic hypoxic resp. failure 2. Sepsis 3. Pneumonia 4. Interstitial lung disease -patient with underlying interstitial lung disease and possible aspiration pneumonia in the setting of known Parkinson's disease. -Elevated WBC count. Significantly elevated Procalcitonin. -chest x-ray suggestive of pneumonia with increased pulmonary vascular congestion. CT imaging may be appropriate if resp. status should decline. -patient is not in any active distress -Mild hypotension noted. Afebrile. No concens on telemetry -Patient does not demonstrate significant volume overload on exam. Currently receiving Furosemide 20mg IV BID. Cautious diuresis in the setting of sepsis. -Continue IV antibiotics as set fourth by primary team. -Blood cultures pending. 5. Elevated troponin: -Multi-factorial, but no evidence of ACS -Patient denies any chest pain or worsening/change in his typical breathing pattern. -EKG shows no acute ST-T wave changes. -Troponin elevation likely in response to hypoxia. Trending down -Echocardiogram demonstrates normal LVEF, no wall motion abnormalities and mild valvular disease. -No further invasive cardiac work up appropriate at this time. Continue to monitor on telemetry and treat acute infectious process. Case has been discussed with Dr. Mujica. Further recommendations regarding plan of care as per his assessment. I spent a total of 40 minutes on the date of service in preparation, delivery, documentation of the care provided to the patient excluding any time spent in the performance of separately billed services. ROLO Dove [facility] Cardiology [facility] Supervising Physician Co-Signing Physician Notes I have personally performed a history and physical examination on the patient. I have reviewed the advance practitioner's documentation, and I agree with, and take responsibility for the plan of care. 88-year-old male present to the emergency department with shortness of breath and cough. History of interstitial lung disease on chronic home oxygen, 2-3 L. Reports cough, wheezing, sputum production, chest congestion, and orthopnea prior to admission. No edema or weight gain. Treated with 500 cc IV normal saline, IV Lasix, antibiotics, and corticosteroids on admission. Elevated procalcitonin concerning for underlying infectious process. Anemia (hemoglobin 7.9) and thrombocytopenia (64) noted. Chest x-ray demonstrating bilateral infiltrates and pulmonary vascular congestion. Interpretation limited by history of interstitial lung disease. Oxygen requirement slightly increased on admission, currently wearing 4 L NC (baseline 2-3 L). Elevated troponin noted on admission without anginal symptoms or ischemic ECG changes. Echocardiogram reveals normal LV systolic function with normal wall motion. Mildly elevated systolic pulmonary artery pressure noted. Acute on chronic hypoxic and hypercapnic respiratory failure secondary to pneumonia and sepsis with underlying interstitial lung disease, anemia, and possible mild volume overload on admission. Patient appears euvolemic on exam currently. Elevated troponin on admission secondary to acute hypoxic respiratory failure (demand ischemia) in the setting of significant underlying anemia and likely, presumed fixed coronary disease rather than acute plaque rupture event. I would not recommend intravenous anticoagulation at this time d ue to worsening anemia and thrombocytopenia. Hold diuretic therapy with reassessment of volume status, and renal function in AM. Monitor fluid balance, daily weight, GFR, and electrolytes. Await culture results. Continue broad- spectrum antibiotic therapy, corticosteroids, and sepsis management as per internal medicine. Findings and recommendations discussed with both the patient and his at bedside. All questions answered to their satisfaction. I spent a total of 40 minutes on the date of service in preparation, delivery, and documentation of the care provided to this patient, excluding any time spent in the performance of separately billed services. History of Present Illness Reason for Consultation: CHF Requesting Physician: Maria Fernanda richards Attending Physician: Benjy Robbins MD History of Present Illness HPI: Patient is a 88 year-old male with PMHx significant for intersitial lung disease on supplemental O2 (2-3L via NC at baseline), Parkinson's, thrombocytopenia, BPH, and anxiety that was sent to the ED for concerns of worsening shortness of breath, dry cough and congestion x2 days. Worse when lying flat. Daughter, Megan is the POA and had expressed concern to the admissions staff for possible aspiration. His diet is pureed diet with nectar thick liquids. Patient had also sustained a fall yesterday in which he had tripped on a rug. Denies any LOC. Acute head CT negative. EKG on admission demonstrates SR with right BBB, left anterior fascicular block. Rate 89 bpm, Repeat EKG this morning demonstrates NSR with Right BBB Rate 71bpm chest xray IMPRESSION: 1. Cardiomegaly with pulmonary vascular congestion. 2. Bilateral airspace opacities likely represent pulmonary edema. Correlate clinically for evidence of a superimposed infectious/inflammatory pneumonitis. Radiographic follow-up to resolution is recommended. 3. Findings of chronic/fibrotic lung disease are likely similar to previous.. H/H 7.9/23.5 Platelets WBC elevated on admission HS Troponin 2408.5 and trending down. BNP 603 Procalcitonin 23.3 Blood cultures pending Patient is out of bed in a chair at time of examination. he is pleasant and offers no complaints. Denies any chest pain, pressure, palpitations, denies any "new" or worsening shortness of breath. On chronic O2 therapy, but no increased demand. Denies any swelling or edema. No pre-syncope or syncope. Review of telemetry demonstrates SR with PVC rates 60-70's. No acute events overnight. Echocardiogram ordered. Allergies Allergy/AdvReac Type Severity Reaction Status Date / Time bacitracin Allergy Mild SWELLING Verified 11/29/23 15:51 neomycin Allergy Mild SWELLING Verified 11/29/23 15:51 polymyxin B Allergy Mild SWELLING Verified 11/29/23 15:51 Penicillins Allergy Unknown ON JUNIPER Verified 11/29/23 15:[address] [facility] MED LIST fentanyl AdvReac Mild PASSED OUT Verified 11/29/23 15:51 Home Medications Medication Instructions Recorded Confirmed Type pramipexole 0.125 mg tablet 0.125 mg PO TID #270 tabs 02/02/23 11/29/23 Rx carbidopa ER 50 mg-levodopa 200 mg 1 tab PO TID #270 tabs 02/03/23 11/29/23 Rx tablet,extended release gabapentin 300 mg capsule 300 mg PO HS 30 days #90 caps 02/03/23 11/29/23 Rx folic acid 1 mg tablet 1 mg PO DAILY 06/16/23 11/29/23 History lidocaine 4 % topical patch 1 patch topical DAILY PRN NECK PAIN 06/16/23 11/29/23 History (Salonpas (lidocaine)) menthol 0.44 %-zinc oxide 20.6 % 1 applic topical DIRECTED PRN 06/16/23 11/29/23 History topical ointment (Calmoseptine) WOUND CARE NEEDED citalopram 20 mg tablet 20 mg PO HS #90 tabs 11/17/23 11/29/23 Rx entacapone 200 mg tablet 200 mg PO TID #270 tabs 11/17/23 11/29/23 Rx cholecalciferol (vitamin D3) 125 125 mcg PO DAILY 11/29/23 11/29/23 History mcg (5,000 unit) tablet (Vitamin D3) propylene glycol 1 %-glycerin 0.3 1 drp ophthalmic (eye) DAILY PRN 11/29/23 11/29/23 History % eye drops Dry Eye(S) tamsulosin 0.4 mg capsule 0.4 mg PO HS 11/29/23 11/29/23 History Patient History Medical History BPH (benign prostatic hyperplasia) Anxiety On home oxygen therapy 2l cont. Hard of hearing History of kidney stones History of skin cancer AND REMOVED Surgical History History of tooth extraction History of anesthesia reaction WAS SENT TO [facility] FOR 3 DAYS TO "RECOVER MY MIND ABILITIES TO HANDLE THINGS" - FOLLOWING BACK SURGERY/[place] ABOUT 7 YRS AGO History of total left knee replacement History of total right knee replacement History of lithotripsy History of back surgery History of hip replacement RIGHT AND LEFT Family History Unknown Cancer Father Prostate cancer Mother No problems noted. Other No family history of adverse response to anesthesia No family history of bleeding disorder Social History Smoking Status: Never smoker Second Hand Exposure: No; Do You Dip or Chew Tobacco: No; Hx Alcohol Use: No Hx Substance Use: No Preferred Language: Citizen Of [place] Communication Ability: Effective Communication Ability Comment: [facility] Certified Master Safecracker Required: No Beliefs That Will Affect Care: None marital status: Current Living Situation: Spouse and Personal Care Facility current occupational status: retired How many Children do You have: 4 Other Information That Helps Us Care for You: No Feels Safe at Home: Yes Safety Concerns: Feels Safe At This Time Assistive Devices: Oxygen - Continuous and Walker Review of Systems Review of Systems: All systems reviewed & are unremarkable except as noted in HPI & below Physical Exam Constitutional: well developed and + thin; no acute distress Neck: normal visual inspection and trachea midline Respiratory: normal respiratory effort and + cough; no respiratory distress and no labored breathing Auscultation: + diminished lung sounds (bilateral bases); no crackles, no rales, no rhonchi and no wheezes Cardiovascular: Rate/Rhythm: regular rate and regular rhythm Heart Sounds: normal S1 and normal S2; no murmur Vessels: dorsalis pedis pulses present; no JVD Skin: no rashes, warm and dry + ecchymosis (noted on forearm, stages of healing ) Psychiatric: A+Ox3, euthymic affect Results & Data Vital Signs (Past 12 Hours) Vital Signs Temp Pulse Pulse Resp BP Pulse Ox O2 Del Method 11/30/23 07:46 36.6 C 57 L 20 117/72 99 Nasal Cannula 11/30/23 02:38 36.3 C L 78 20 94/51 L 96 Nasal Cannula 11/29/23 22:42 36.6 C 72 18 97/60 L 99 Room Air 11/29/23 22:00 71 O2 Flow Rate 11/30/23 07:46 4 11/30/23 02:38 4 11/29/23 22:42 11/29/23 22:00 Laboratory Results Cardiac Enzymes 11/29/23 11/29/23 11/29/23 Range/Units 14:52 17:23 22:41 AST 42 H (13-39) U/L Troponin I High Sens 2408.5 H* 1966.7 H* 1374.5 H* D (0-20) pg/ml B-Natriuretic Peptide 603 H (0-100) pg/ml 11/30/23 Range/Units 05:28 AST (13-39) U/L Troponin I High Sens 1107.3 H* (0-20) pg/ml B-Natriuretic Peptide (0-100) pg/ml Coagulation 11/29/23 11/29/23 Range/Units 14:52 17:23 PT Cancelled 13.0 H APTT Cancelled 31 B-Natriuretic Peptide 603 H (0-100) pg/ml CBC 11/29/23 11/30/23 Range/Units 14:52 05:28 WBC 13.17 H 6.78 (4.8-10.8) K/ul RBC 2.33 L 2.05 L (4.70-6.10) M/uL Hgb 9.0 L 7.9 L (14.0-18.0) g/dl Hct 27.5 L 23.5 L (42.0-52.0) % Plt Count 87 L 64 L (130-400) K/uL Neut # (Auto) 11.00 H (1.40-6.50) K/uL Lymph # (Auto) 1.37 (1.20-3.40) K/uL [place] # (Auto) 0.58 (0.11-0.59) K/uL Eos # (Auto) 0.07 (0.00-0.50) K/uL Baso # (Auto) 0.03 (0.00-0.20) K/uL Comprehensive Metabolic Panel 11/29/23 11/30/23 Range/Units 14:52 05:28 Sodium 137 136 (136-145) mmol/L Potassium 4.3 4.1 (3.5-5.1) mmol/L Chloride 102 99 (98-107) mmol/L Carbon Dioxide 31 32 (21-32) mmol/L BUN 39 H 39 H (6-23) mg/dl Creatinine 1.29 1.24 (0.6-1.4) mg/dl Glucose 132 H 168 H (70-99(Fasting)) mg/dl Calcium 9.6 8.9 (8.6-10.3) mg/dl Direct Bilirubin 0.1 (0-0.2) mg/dl AST 42 H (13-39) U/L ALT 8 (7-52) U/L Alkaline Phosphatase 65 (34-104) U/L Total Protein 7.7 (6.0-8.3) gm/dl Albumin 3.7 (3.4-5.0) gm/dl Intake and Output 11/29/23 11/30/23 11/30/23 22:59 06:59 14:59 Intake Total 416.55 / 416.55 100 / 100 Output Total 250 / 400 150 / 400 Balance 166.55 / 16.55 -150 / 16.55 100 / 100 Intake: IV 416.55 / 416.55 100 / 100 Ampicillin/Sulbactam Sod 3,000 100 / 100 mg In Sodium Chlor 0.9% Mini-B 100 ml @ 200 mls/hr IV NOW STA Rx#:[id number] Doxycycline Hyclate 100 mg In 100 / 100 Dextrose 5% Mini-B 100 ml @ 50 mls/hr IV NOW ONE Rx#:[id number] Piperacillin/Tazobactam 4.5 gm 100 / 100 100 / 100 In Dextrose 5% Mini-B 100 ml @ 25 mls/hr IV Q8H [facility] Rx#: [id number] Sodium Chloride 0.9% 500 ml @ 116.55 / 116.55 999 mls/hr IV .Q31M [facility] Rx#: [id number] Oral 0 / 0 Output: Urine Amount (Catheter) 250 / 400 150 / 400 External 250 / 400 150 / 400 Other: # Unmeasured Voids 1 1 Weight 74.1 kg 73.4 kg Weight Measurement Method [facility] Diagnostic Findings Echocardiogram 11/30/23: Left ventricular systolic pressure is normal LVEF 55-60% Left atrium mildly dilated Grade II diastolic dysfunction Mild MR Mild TR PASP 40 mmHg (3) Pneumonia Laterality: unspecified laterality Lung location: unspecified part of lung Pneumonia type: due to unspecified organism Qualified Code(s): J18.9 - Pneumonia, unspecified organism
--- NOTE | 2023-11-30 10:15 | Electrocardiogram Report ---
Test Reason : Blood Pressure : / mmHG Vent. Rate : 071 BPM Atrial Rate : 071 BPM P-R Int : 180 ms QRS Dur : 132 ms QT Int : 468 ms P-R-T Axes : 042 032 038 degrees QTc Int : 508 ms Poor data quality, interpretation may be adversely affected Normal sinus rhythm Right bundle branch block Abnormal ECG When compared with ECG of 29-NOV-2023 15:01, Premature supraventricular complexes are no longer Present Left anterior fascicular block is no longer Present Nonspecific T wave abnormality no longer evident in Inferior leads Confirmed by Jovon Horner ([id number]) on 11/30/2023 10:14:57 AM Referred By: REFERRED SELF Confirmed By:Jovon Horner
--- NOTE | 2023-11-30 14:32 | Hospitalist Progress Note ---
Date of Service November 30, 2023 Assessment & Plan (1) Acute on chronic hypoxic respiratory failure: (2) Sepsis: (3) Pneumonia: (4) Interstitial lung disease: (5) Parkinson disease: (6) Hypertension: (7) Mood disorder: (8) BPH (benign prostatic hyperplasia): Plan This is an 88-year-old male from [facility] with PMH of chronic interstitial lung disease on 2-3 L nasal cannula at baseline, Parkinson's disease, BPH, thrombocytopenia, anxiety and other medical problems listed below presents from home with worsening shortness of breath. Sepsis, POA Pneumonia Acute on chronic hypoxic respiratory failure Acute on chronic diastolic heart failure Patient presented to the hospital with worsening shortness of breath. On presentation;RR 28, HR initially 119, temp 37.7, WBC 13 K, Pro-Garcia 23, lactate 2.5 -> 1.9 after fluids Respiratory viral panel negative CXR on admission with cardiomegaly with pulmonary vascular congestion. Bilateral airspace opacities likely represent pulmonary edema. BNP elevated Continue on IV Zosyn and doxycycline. Wean oxygen as tolerated Hold lasix as per cardiology recommendation Strict input and output monitoring Daily weights Obtain CT chest without contrast to further evaluate chest xray findings Demand ischemia High sensitive troponin on admission of 2408; down trended to 1107 EKG on admission shows normal sinus rhythm; RBBB ;nonspecific T wave changes Echocardiogram shows EF of 55 to 60% with grade 2 diastolic dysfunction. Cardiology on board; troponin elevation likely due to sepsis/pneumonia. No anticoagulation given history of thrombocytopenia and anemia Fall prior to arrival Denies head trauma, small skin tear on arm CT head without acute intracranial change Fall precautions PT/OT eval JOSE superimposed on CKD Cr 1.29 (baseline ~ 0.7). Monitor with daily BMP Avoid nephrotoxic agents Parkinson's disease Stable. Continue carbidpa-levodopa Mood disorder Continue Celexa HS BPH Continue tamsulosin Thrombocytopenia Macrocytic Anemia History of macrocytic anemia along with thrombocytopenia for several years. Hemoglobin and platelets are lower than baseline Obtain vitamin B12 level Patient will need referral to hematology as outpatient for further workup DVT Ppx: SQ heparin Q12 Code status: DNR/DNI PCP: Figueroa Dispo: Admitted to PCU Time spent evaluating patient, direct bedside care, chart review, placing orders, interpretation of diagnostic studies, discussion with consultants, patient, and family members, as well as other required patient management activities is 60 minutes Please note the above document was generated using voice recognition software. It may contain grammatical, syntax or spelling errors. Any formal questions or concerns about the content, text or information contained within the body of this dictation should be directly addressed to the provider for clarification Admission and Anticipated Discharge Date Admission Date: November 29, 2023 Subjective Patient seen and examined at bedside. He is sitting up on the chair at the side of the bed; not in distress. He is requiring 4 L of oxygen via nasal cannula. Denies shortness of breath at rest. Review of Systems Review of Systems: All systems reviewed & are unremarkable except as noted in Subjective Physical Exam Physical Exam: Constitutional: Awake, alert oriented x 3; hard of hearing. Respiratory: Bilateral crackles present. Cardiovascular: RRR, no murmur, no edema Vessels: no JVD or carotid bruit Chest: normal inspection of chest Abdomen: Soft, nontender. Musculoskeletal: no cyanosis or clubbing, extremities motor strength 5/5 Skin: no rashes, warm and dry normal turgor Neurologic: PERRL, EOMI, accommodation nl, no face palsy, no dysarthria CN's II- XI intact bilaterally and moves all extremities Psychiatric: A+Ox3, euthymic affect Results & Data Results & Data Vital Signs (Past 12 Hours) Vital Signs Temp Pulse Resp BP Pulse Ox O2 Del Method O2 Flow Rate 11/30/23 11:31 36.5 C 78 18 94/53 L 91 Nasal Cannula 4 11/30/23 07:46 36.6 C 57 L 20 117/72 99 Nasal Cannula 4 11/30/23 02:38 36.3 C L 78 20 94/51 L 96 Nasal Cannula 4 (3) Pneumonia Laterality: unspecified laterality Lung location: unspecified part of lung Pneumonia type: due to unspecified organism Qualified Code(s): J18.9 - Pneumonia, unspecified organism
--- NOTE | 2023-11-30 19:21 | CT Scan Report ---
CT SCAN OF THE CHEST WITHOUT IV CONTRAST CLINICAL HISTORY: Sepsis. Dyspnea. COMPARISON STUDY: Chest CT dated 03/26/2021. Chest x-ray dated 11/29/2023. TECHNIQUE: CT scan of the thorax was performed from the thoracic inlet to the upper abdomen. Images are reviewed in the axial, sagittal, and coronal planes. IV contrast was not administered for this ex amination as per the referring clinician. A dose lowering technique was utilized adhering to the nathaly astorga of KAROLINE. The examination is degraded by motion artifact, as well as by streak artifact from the arms which could not be a little above the chest. CT DOSE: 516.44 mGy.cm FINDINGS: Thyroid: Imaged portions of the thyroid gland are normal in size and attenuation. Thoracic aorta: The thoracic aorta is normal in caliber and demonstrates standard 3-vessel arch anato my. Heart: The heart is enlarged and without pericardial effusion. The coronary arteries are densely calc ified. Lungs and pleural spaces: Evaluation of the lung parenchyma is significantly compromised by motion ar tifact. There is edematous change is suspected. The trachea and central airways are grossly clear. Ch anges of chronic interstitial/fibrotic lung disease are again noted with a lower lobe predominance. T here is architectural distortion and bilateral lower lobe bronchiectasis. There are increased airspac e opacities at both lung bases as compared to 2020. Scattered calcified granulomas are observed. Mediastinum: There are numerous mildly enlarged mediastinal lymph nodes which measure up to 11 mm fide rt axis. Soledad: Not well assessed without IV contrast. Axillae: There is no axillary lymphadenopathy. Upper abdomen: There is a small hiatal hernia. Diverticula are noted in the partially imaged left col on. Skeletal structures: The skeletal structures are osteopenic. Degenerative change is noted in the shou lders and spine. Arthritic change in also seen at the left sternoclavicular joint. No lytic or blasti c bony lesions are seen. IMPRESSION: 1. Streak and motion compromised examination. 2. Cardiomegaly noting advanced coronary artery atherosclerosis. 3. Again seen are changes of chronic interstitial/fibrotic lung disease as above, likely with superim posed emphysema. 4. There are increasing bibasilar airspace opacities as compared to the 03/26/2021 examination. This could represent changes of progressive chronic lung disease, a superimposed infectious/inflammatory p neumonitis, and/or mild pulmonary edema. Clinical correlation will be essential. Radiographic follow- up is advised. 5. Mildly enlarged mediastinal lymph nodes are nonspecific and likely related to chronic lung disease . 6. Additional findings as above. ACT 112: Negative or not required by law. Electronically signed by: Gilberto Minor M.D. 11/30/2023 7:18 PM
[2023-12-01 06:52] LABS: Hematocrit (blood only) 25.1 % (42.0-52.0); Hemoglobin 8.4 g/dl (14.0-18.0); Mean Corpuscular Hemoglobin 39.1 pg (25.0-34.0); Mean Corpuscular Hgb Conc 33.5 g/dL (32.0-36.0); Mean Corpuscular Volume 116.7 fL (80.0-100.0); Mean Platelet Volume 11.6 fL (9.4-12.4); Platelet Count 67 K/uL (130-400); RDW Coefficient of Variation 14.1 % (11.5-14.5); RDW Standard Deviation 61.1 fL (36.4-46.3); Red Blood Count 2.15 M/uL (4.70-6.10); White Blood Count 6.14 K/ul (4.8-10.8)
[2023-12-01 07:11] LABS: BUN Creatinine Ratio 36.5 (10-20); Calcium 9.1 mg/dl (8.6-10.3); Creatinine Clr Calc Pharmacy 49.9 ml/min; Est GFR (African American) 73.4 ml/min; Est GFR (Non-African American) 63.4 ml/min; Potassium 3.7 mmol/L (3.5-5.1)
--- NOTE | 2023-12-01 08:32 | Pulmonary Consultation ---
Date of Consultation December 01, 2023 Assessment & Plan (1) Respiratory failure with hypoxia: (2) Dyspnea: (3) Cough: (4) Abnormal CT scan of lung: Plan Impression: 88-year-old with interstitial lung disease and chronic hypoxemic respiratory failure, likely IPF. He is elected to pursue a conservative approach without therapy was admitted to the hospital with hypoxemia which is likely multifactorial due to combinations of mild pulmonary edema, ILD, and potential infectious etiologies. Recommendations: 1. Abnormal CT scan: Likely multifactorial due to combinations of the patient's interstitial lung disease, mild fluid overload, and potential infectious lower respiratory process. See comments below. No indication for follow-up imaging 2. Interstitial lung disease: Please refer to my prior clinical notes. Patient will likely undergo progression. We discussed previously palliative care/hospice which she was open to. Would recommend reengaging palliative care at this point in time. The patient expressed an interest to not be transferred back and forth between his assisted living center in the hospital. 3. With regards to potential infectious etiology/pneumonia, recommend transitioning from IV to p.o. antibiotics. Doxycycline can be transitioned to p.o. The patient does not require antipseudomonal beta-lactam so we will discontinue Zosyn and replace with Ceftin. Would complete a 5-day course of antimicrobial therapy. Recheck procalcitonin in a.m. 4. Hypoxemia: Continue supplemental oxygen titrated to keep saturations at or above 89%. Recommend getting patient out of bed to chair and ambulating. Discontinuation of urinary catheter recommended Patient appears to be at or approaching his pulmonary baseline. May be able to disposition in the next 24 to 48 hours depending on clinical response. Thanks for the opportunity participating the care of this patient. Feel free to contact us with questions or concerns History of Present Illness Attending Physician: Benjy Robbins MD Allergies Allergy/AdvReac Type Severity Reaction Status Date / Time bacitracin Allergy Mild SWELLING Verified 11/29/23 15:51 neomycin Allergy Mild SWELLING Verified 11/29/23 15:51 polymyxin B Allergy Mild SWELLING Verified 11/29/23 15:51 Penicillins Allergy Unknown ON JUNIPER Verified 11/29/23 15:51 [facility] L[facility] fentanyl AdvReac Mild PASSED OUT Verified 11/29/23 15:51 Home Medications Medication Instructions Recorded Confirmed Type pramipexole 0.125 mg tablet 0.125 mg PO TID #270 tabs 02/02/23 11/29/23 Rx carbidopa ER 50 mg-levodopa 200 mg 1 tab PO TID #270 tabs 02/03/23 11/29/23 Rx tablet,extended release gabapentin 300 mg capsule 300 mg PO HS 30 days #90 caps 02/03/23 11/29/23 Rx folic acid 1 mg tablet 1 mg PO DAILY 06/16/23 11/29/23 History lidocaine 4 % topical patch 1 patch topical DAILY PRN NECK PAIN 06/16/23 11/29/23 History (Salonpas (lidocaine)) menthol 0.44 %-zinc oxide 20.6 % 1 applic topical DIRECTED PRN 06/16/23 11/29/23 History topical ointment (Calmoseptine) WOUND CARE NEEDED citalopram 20 mg tablet 20 mg PO HS #90 tabs 11/17/23 11/29/23 Rx entacapone 200 mg tablet 200 mg PO TID #270 tabs 11/17/23 11/29/23 Rx cholecalciferol (vitamin D3) 125 125 mcg PO DAILY 11/29/23 11/29/23 History mcg (5,000 unit) tablet (Vitamin D3) propylene glycol 1 %-glycerin 0.3 1 drp ophthalmic (eye) DAILY PRN 11/29/23 11/29/23 History % eye drops Dry Eye(S) tamsulosin 0.4 mg capsule 0.4 mg PO HS 11/29/23 11/29/23 History Patient History Medical History BPH (benign prostatic hyperplasia) Anxiety On home oxygen therapy 2l cont. Hard of hearing History of kidney stones History of skin cancer AND REMOVED Surgical History History of tooth extraction History of anesthesia reaction WAS SENT TO [facility] FOR 3 DAYS TO "RECOVER MY MIND ABILITIES TO HANDLE THINGS" - FOLLOWING BACK SURGERY/[place] ABOUT 7 YRS AGO History of total left knee replacement History of total right knee replacement History of lithotripsy History of back surgery History of hip replacement RIGHT AND LEFT Family History Unknown Cancer Father Prostate cancer Mother No problems noted. Other No family history of adverse response to anesthesia No family history of bleeding disorder Social History Smoking Status: Never smoker Second Hand Exposure: No; Do You Dip or Chew Tobacco: No; Hx Alcohol Use: No Hx Substance Use: No Preferred Language: Pashto Communication Ability: Effective Communication Ability Comment: tribal Cow Buyer Required: No Beliefs That Will Affect Care: None marital status: Current Living Situation: Spouse and Personal Care Facility current occupational status: retired How many Children do You have: 4 Other Information That Helps Us Care for You: No Feels Safe at Home: Yes Safety Concerns: Feels Safe At This Time Assistive Devices: Oxygen - Continuous and Walker Results & Data Results & Data Vital Signs (Past 12 Hours) Vital Signs Temp Pulse Pulse Resp BP Pulse Ox O2 Del Method 12/01/23 07:47 36.4 C L 85 21 93/54 L 90 Nasal Cannula 12/01/23 02:37 36.6 C 96 H 18 97/57 L 97 Nasal Cannula 11/30/23 22:34 70 11/30/23 22:34 70 11/30/23 22:24 36.4 C L 74 16 98/53 L 95 Nasal Cannula O2 Flow Rate 12/01/23 07:47 2 12/01/23 02:37 4 11/30/23 22:34 11/30/23 22:34 11/30/23 22:24 4 PG Care Time/CCT Total # of Minutes Spent Total Time Spent with Patient: Total time spent is greater than 50% in coordination of care (as documented) at patient's floor/unit and/or counseling patient: Coding Level of Care Code 86797 INT INP/OBS CARE 2/55MIN Diagnoses Respiratory failure with hypoxia J96.91 Dyspnea R06.[address] scan of lung R91.8
--- NOTE | 2023-12-01 09:27 | Cardiology Progress Note ---
Date of Service December 01, 2023 Assessment & Plan (1) Acute on chronic hypoxic respiratory failure: (2) Sepsis: (3) Pneumonia: (4) Interstitial lung disease: (5) Elevated troponin: Plan Assessment: 88 year-old male with no prior cardiac history presents with acute URI symptoms and likely pneumonia. Presence of elevated troponin with request for cardiac evaluation. Plan: 1. Acute on Chronic hypoxic resp. failure 2. Sepsis 3. Pneumonia 4. Interstitial lung disease -patient with underlying interstitial lung disease and possible aspiration pneumonia in the setting of known Parkinson's disease. -Elevated WBC count. Significantly elevated Procalcitonin. -chest x-ray suggestive of pneumonia with increased pulmonary vascular congestion. CT imaging may be appropriate if resp. status should decline. -patient is not in any active distress -Mild hypotension noted. Afebrile. No concens on telemetry -Patient does not demonstrate significant volume overload on exam. Currently receiving Furosemide 20mg IV BID. Cautious diuresis in the setting of sepsis. -Continue IV antibiotics as set fourth by primary team. -Blood cultures pending. 5. Elevated troponin: -Multi-factorial, but no evidence of ACS -Patient denies any chest pain or worsening/change in his typical breathing pattern. -EKG shows no acute ST-T wave changes. -Troponin elevation likely in response to hypoxia. Trending down -Echocardiogram demonstrates normal LVEF, no wall motion abnormalities and mild valvular disease. -No further invasive cardiac work up appropriate at this time. Continue to monitor on telemetry and treat acute infectious process. 12/01/2023: -patient demonstrates continued clinical improvement. -No chest pain or angina. No acute events on telemetry. -Continues on PO Antibiotics per primary team. -He is back to baseline supplemental O2 requirements. -Patient is doing well from a cardiac perspective. No further cardiac work up is necessary at this time. Case has been discussed with Dr. Mujica. Further recommendations regarding plan of care as per his assessment. I spent a total of 30 minutes on the date of service in preparation, delivery, documentation of the care provided to the patient excluding any time spent in the performance of separately billed services. ROLO Dove [facility] Cardiology [facility] Admission and Anticipated Discharge Date Admission Date: November 29, 2023 Supervising Physician Co-Signing Physician Notes I have personally performed a history and physical examination on the patient. I have reviewed the advance practitioner's documentation, and I agree with, and take responsibility for the plan of care. 88-year-old male present to the emergency department with shortness of breath and cough. History of interstitial lung disease on chronic home oxygen, 2-3 L. Reports cough, wheezing, sputum production, chest congestion, and orthopnea prior to admission. No edema or weight gain. Acute on chronic hypoxic and hypercapnic respiratory failure secondary to pneumonia and sepsis with underlying interstitial lung disease, anemia, and possible mild volume overload on admission. Patient appears euvolemic on exam currently. No additional diuretic therapy recommended at this time. Elevated troponin on admission secondary to acute hypoxic respiratory failure (demand ischemia) in the setting of significant underlying anemia and likely, presumed fixed coronary disease rather than acute plaque rupture event. I would not recommend intravenous anticoagulation at this time due to worsening anemia and thrombocytopenia. Await culture results. Continue broad-spectrum antibiotic therapy, corticosteroids, and sepsis management as per internal medicine. Findings and recommendations discussed with both the patient and his at bedside. All questions answered to their satisfaction. Cardiology will sign off. Please call with additional concerns/questions. I spent a total of 30 minutes on the date of service in preparation, delivery, and documentation of the care provided to this patient, excluding any time spent in the performance of separately billed services. Subjective 12/01/2023: Patient seen and examined in follow up today. Feeling "great", sitting up in bed offering no cardiac concerns. Denies chest pain, pressure, palpitations, shortness of breath, PND, pre- syncope, syncope or edema. Labs, vitals, diagnostics, telemetry and documentation reviewed. Telemetry reviewed showing SR with occasional PAC, PVC and short runs of ventricular bigeminy. Rates 60-70's. Review of Systems Review of Systems: All systems reviewed & are unremarkable except as noted in HPI & below Physical Exam Constitutional: well developed and + thin; no acute distress Neck: normal visual inspection and trachea midline Respiratory: normal respiratory effort and + cough; no respiratory distress and no labored breathing Auscultation: + diminished lung sounds (bilateral bases); no crackles, no rales, no rhonchi and no wheezes Cardiovascular: Rate/Rhythm: regular rate and regular rhythm Heart Sounds: normal S1 and normal S2; no murmur Vessels: dorsalis pedis pulses present; no JVD Skin: no rashes, warm and dry + ecchymosis (noted on forearm, stages of healing ) Psychiatric: A+Ox3, euthymic affect Results & Data Vital Signs (Past 12 Hours) Vital Signs Temp Pulse Pulse Resp BP Pulse Ox O2 Del Method 12/01/23 07:47 36.4 C L 85 21 93/54 L 90 Nasal Cannula 12/01/23 02:37 36.6 C 96 H 18 97/57 L 97 Nasal Cannula 11/30/23 22:34 70 11/30/23 22:34 70 11/30/23 22:24 36.4 C L 74 16 98/53 L 95 Nasal Cannula O2 Flow Rate 12/01/23 07:47 2 12/01/23 02:37 4 11/30/23 22:34 11/30/23 22:34 11/30/23 22:24 4 Laboratory Results CBC 12/01/23 Range/Units 05:29 WBC 6.14 (4.8-10.8) K/ul RBC 2.15 L (4.70-6.10) M/uL Hgb 8.4 L (14.0-18.0) g/dl Hct 25.1 L (42.0-52.0) % Plt Count 67 L (130-400) K/uL Comprehensive Metabolic Panel 12/01/23 Range/Units 05:29 Sodium 137 (136-145) mmol/L Potassium 3.7 (3.5-5.1) mmol/L Chloride 100 (98-107) mmol/L Carbon Dioxide 33 H (21-32) mmol/L BUN 38 H (6-23) mg/dl Creatinine 1.04 (0.6-1.4) mg/dl Glucose 107 H (70-99(Fasting)) mg/dl Calcium 9.1 (8.6-10.3) mg/dl Intake and Output 11/30/23 12/01/23 12/01/23 22:59 06:59 14:59 Intake Total 120 / 1400 500 / 1400 1270 / 1270 Output Total 850 / 1900 400 / 1900 526 / 526 Balance -730 / -500 100 / -500 744 / 744 Intake: IV 300 / 600 Doxycycline Hyclate 100 mg In 100 / 200 Dextrose 5% Mini-B 100 ml @ 50 mls/hr IV Q12H [facility] Rx#:[id number] Piperacillin/Tazobactam 4.5 gm 200 / 400 In Dextrose 5% Mini-B 100 ml @ 25 mls/hr IV Q8H [facility] Rx#: [id number] Oral 120 / 800 200 / 800 1270 / 1270 Output: Urine Amount (Catheter) 850 / 1900 400 / 1900 525 / 525 External 850 / 1900 400 / 1900 525 / 525 # Bowel Movements Other: Weight 73.4 kg 73.2 kg Weight Measurement Method Built in [facility] (3) Pneumonia Laterality: unspecified laterality Lung location: unspecified part of lung Pneumonia type: due to unspecified organism Qualified Code(s): J18.9 - Pneumonia, unspecified organism
[2023-12-01] MEDS: PNEUMOCOCCAL VACCINE (PCV20) 20-VAL CONJ-DIP CRM/PF 0.5 ML SYR IM ONE (11:10)
[2023-12-01] MEDS: cefUROXime axetil 500 MG TAB PO SCH (11:10)
[2023-12-01] MEDS: DOXYCYCLINE HYCLATE 100 MG CAP PO SCH (11:11)
[2023-12-01] MEDS: bisacodyL 10 MG SUPP PR ONE (12:27)
[2023-12-01] MEDS: bisacodyL 10 MG SUPP PR STA (12:27)
--- NOTE | 2023-12-01 13:35 | Hospitalist Progress Note ---
Date of Service December 01, 2023 Assessment & Plan (1) Acute on chronic hypoxic respiratory failure: (2) Sepsis: (3) Pneumonia: (4) Interstitial lung disease: (5) Parkinson disease: (6) Hypertension: (7) Mood disorder: (8) BPH (benign prostatic hyperplasia): Plan This is an 88-year-old male from [facility] with PMH of chronic interstitial lung disease on 2-3 L nasal cannula at baseline, Parkinson's disease, BPH, thrombocytopenia, anxiety and other medical problems listed below presents with worsening shortness of breath. Sepsis, POA Pneumonia Acute on chronic hypoxic respiratory failure Acute on chronic diastolic heart failure Patient presented to the hospital with worsening shortness of breath. On presentation;RR 28, HR initially 119, temp 37.7, WBC 13 K, Pro-Garcia 23, lactate 2.5 -> 1.9 after fluids Respiratory viral panel negative CXR on admission with cardiomegaly with pulmonary vascular congestion. Bilateral airspace opacities likely represent pulmonary edema. BNP elevated CT chest without contrast obtained; increasing bibasilar airspace opacities compared to CT scan obtained in March 2021; possible progressive chronic lung disease, superimposed infectious pneumonitis or mild pulmonary edema. Patient was initially treated with IV Zosyn and doxycycline; switched over to p.o. antibiotics as per pulmonology. Discussion of goals of care was done with patient's CAROLYN Guzman over the phone. She is a vending route driver. I have updated her regarding his hospitalization and findings in the CT chest and impression by pulmonology. She acknowledges that patient does not want aggressive intervention and does not like being back and forth to the hospital. I discussed possible discharge at rehab and starting hospice care there. She will have to discuss with her mom and patient regarding it and will follow-up on it after patient is stable for discharge. Obtain Pro-Garcia in a.m. Video swallow was done; silent aspiration was noted. Recommended to be on pured diet and mildly thick liquid Wean down oxygen as tolerated Demand ischemia High sensitive troponin on admission of 2408; down trended to 1107 EKG on admission shows normal sinus rhythm; RBBB ;nonspecific T wave changes Echocardiogram shows EF of 55 to 60% with grade 2 diastolic dysfunction. Cardiology on board; troponin elevation likely due to sepsis/pneumonia. No anticoagulation given history of thrombocytopenia and anemia Fall prior to arrival Denies head trauma, small skin tear on arm CT head without acute intracranial change Fall precautions PT/OT eval JOSE superimposed on CKD Cr 1.29 (baseline ~ 0.7). Monitor with daily BMP Avoid nephrotoxic agents Parkinson's disease Stable. Continue carbidpa-levodopa Mood disorder Continue Celexa HS BPH Continue tamsulosin Thrombocytopenia Macrocytic Anemia History of macrocytic anemia along with thrombocytopenia for several years. Hemoglobin and platelets are lower than baseline Vitamin B12 within normal limits I updated the findings with patient's POA over the phone. No further workup regarding thrombocytopenia and macrocytic anemia as goals of care are focused on comfort measures. DVT Ppx: SQ heparin Q12 Code status: DNR/DNI PCP: Figueroa Dispo: Admitted to PCU Time spent evaluating patient, direct bedside care, chart review, placing orders, interpretation of diagnostic studies, discussion with consultants, patient, and family members, as well as other required patient management activities is 50 minutes Please note the above document was generated using voice recognition software. It may contain grammatical, syntax or spelling errors. Any formal questions or concerns about the content, text or information contained within the body of this dictation should be directly addressed to the provider for clarification Admission and Anticipated Discharge Date Admission Date: November 29, 2023 Subjective Patient seen and examined at bedside. He is sitting up on the bed comfortably; not in distress He reports that his breathing has improved compared to yesterday. No significant event overnight Review of Systems Review of Systems: All systems reviewed & are unremarkable except as noted in Subjective Physical Exam Physical Exam: Constitutional: Awake, alert oriented x 3; hard of hearing. Respiratory: Bilateral crackles present. Cardiovascular: RRR, no murmur, no edema Vessels: no JVD or carotid bruit Chest: normal inspection of chest Abdomen: Soft, nontender. Musculoskeletal: no cyanosis or clubbing, extremities motor strength 5/5 Skin: no rashes, warm and dry normal turgor Neurologic: PERRL, EOMI, accommodation nl, no face palsy, no dysarthria CN's II- XI intact bilaterally and moves all extremities Psychiatric: A+Ox3, euthymic affect Results & Data Results & Data Vital Signs (Past 12 Hours) Vital Signs Temp Pulse Resp BP Pulse Ox O2 Del Method O2 Flow Rate 12/01/23 13:18 Nasal Cannula 3 12/01/23 10:35 36.5 C 76 20 100/58 L 96 Nasal Cannula 2 12/01/23 07:47 36.4 C L 85 21 93/54 L 90 Nasal Cannula 2 12/01/23 02:37 36.6 C 96 H 18 97/57 L 97 Nasal Cannula 4 (3) Pneumonia Laterality: unspecified laterality Lung location: unspecified part of lung Pneumonia type: due to unspecified organism Qualified Code(s): J18.9 - Pneumonia, unspecified organism
--- NOTE | 2023-12-01 13:39 | Fluoroscopy Report ---
VIDEO SWALLOW STUDY CLINICAL HISTORY: Aspiration. COMPARISON STUDY: Video swallow study dated 03/29/2021. Fluoroscopy time: 1.4 minutes. Ka,r: 11.7 mGy FINDINGS: Fluoroscopic guidance is provided to the Department of speech pathology in performing a vid eo swallow study. The patient consumed barium-impregnated nectar-thick liquids, pudding, cracker with paste, and thin barium while the swallowing mechanism was observed in real-time. Silent aspiration w as seen with thin barium. No penetration or aspiration was seen with any of the additional sample geri tures. IMPRESSION: 1. Silent aspiration was seen with thin barium. 2. No penetration or aspiration was seen with any of the additional sampled textures. 3. See dedicated speech pathology report for detailed findings and recommendations. Dictated: 12/01/2023 1:19 PM Transcribed: 12/01/2023 1:25 PM Ricky [id number] [email or web address] Electronically signed by: Gilberto Minor M.D. 12/01/2023 1:38 PM
--- NOTE | 2023-12-01 14:50 | Palliative Care Consultation ---
Date of Consultation December 01, 2023 Assessment & Plan (1) Dyspnea and respiratory abnormalities: (2) Weakness generalized: (3) Air hunger: (4) Advanced care planning/counseling discussion: A 60-minute [id number] conversation was held regarding advance care planning with patient and his at the bedside. He was able to report the progression of his interstitial lung disease over the last 5 years. He notes that he was told that his mortality was overall limited and that he is nearing the end of that 5-year timeframe he had been quoted. Reports a declining performance status with increased assistance at this point he tells me that during the course of this admission, multiple providers suggested that he consider hospice. He asks how this would help him for going home. He is clear that he does not wish to be placed in the skilled facility. is very clear that his needs are becoming more difficult to manage and that she has to push him in a wheelchair to their mealtimes. For now she is able to physically do this however she worries that as his care needs increase, she may not be able to provide his care. She states her assisted living facility does provide them with home health aides and nursing visits throughout the day and that he is able to have assistance for bathing and personal care needs. He also understands that his interstitial lung disease is an incurable and progressive disease. He understands that it is reaching its end stages. When asked what his goals would be at this junction, he replied they would be to spend as much time as he could with his , focusing on quality and comfort" to make sure that you people know I do not want to suffer." We discussed the options for managing his symptoms and he shares that the primary symptom most disruptive to him at this time is his dyspnea. We discussed a trial of low-dose Roxanol liquid which he was agreeable to. We also discussed hospice, see #5 below. He is receptive to hospice and would like a referral to hospice prior to discharge. He understands that hospice will continued to care for him at [facility] in addition to his care team at [facility]. (5) Encounter for hospice care discussion: I provided education about the hospice benefit: an interdisciplinary program offered by nurses, nurses aides, social workers, chaplains and a medical intern for patients with a terminal condition and a life expectancy of less than 6 months. This is covered by Medicare at 100%/no out of pocket expense to patient and all meds/supplies needed by patient for the reason they are on hospice are paid for/covered by hospice. The goal is assure quality of life of the patient in their home setting (home, half-way, inpatient hospice setting) by providing symptoms management, psychosocial and spiritual support. However, they cannot offer 24 hours care and if the family is unable to provide that care, they will have to consider personal care with out of pocket cost vs. half-way placement. We discussed the goals of hospice as a patient service and the goals of care; we discussed EOL trajectories and transitions garcia the emotional impact of realizing mortality as a concrete reality from prior abstract considerations. Pt was reassured that no matter where they are along this trajectory, they are not alone - their medical team will remain by their side through their journey. Discussed the pros/cons of accepting help when especially weakened and distressed by pain-which would also help provide relief/decrease caregiver burden/strain. (6) Palliative care by specialist: Discussed Palliative Medicine provides specialized medical care for patients with a serious illness. We offer a focus on quality of life through reduction of symptom burden/more control over their illness, for patients and their family. Palliative Medicine interventions can be given along with curative treatment. I specifically clarified we are not hospice, which is a visiting nurse service that focuses on care delivered at the very end of life. Plan A trial of Roxanol 2.5 mg p.o. every 2 hours as needed for dyspnea has been ordered. The patient does not feel any relief with this dose, please increase to 5 mg. Advance care planning discussion as noted above. Patient would like a discharge back to [facility] with hospice. Primary team notified. Thank you for allowing us to participate in the ongoing care of this patient. Please page with any additional concerns. Cris Arreola DNP Director, Palliative Medicine History of Present Illness Reason for Consultation: symptom mgt, goals of care, pulm recommended. Attending Physician: Benjy Robbins MD History of Present Illness Moris is an 88yo male with advancing ILD initially dx 5 years ago Admitted now with resp failure d/t PNA per pt struggles with SOB at bedside pt and share they live in assisted living at [facility] pt largely wheelchair dependent for mobility states they do not often leave their apartment apart from mealtimes and she takes him there via WC she states they do not go off [facility] for appointments because they no longer own a car and "[facility] charges us $35 PER HOUR to take us anywhere!" Allergies Allergy/AdvReac Type Severity Reaction Status Date / Time bacitracin Allergy Mild SWELLING Verified 11/29/23 15:51 neomycin Allergy Mild SWELLING Verified 11/29/23 15:51 polymyxin B Allergy Mild SWELLING Verified 11/29/23 15:51 Penicillins Allergy Unknown ON [facility] Verified 11/29/23 15:51 [facility] MED LIST fentanyl AdvReac Mild PASSED OUT Verified 11/29/23 15:51 Home Medications Medication Instructions Recorded Confirmed Type pramipexole 0.125 mg tablet 0.125 mg PO TID #270 tabs 02/02/23 11/29/23 Rx carbidopa ER 50 mg-levodopa 200 mg 1 tab PO TID #270 tabs 02/03/23 11/29/23 Rx tablet,extended release gabapentin 300 mg capsule 300 mg PO HS 30 days #90 caps 02/03/23 11/29/23 Rx folic acid 1 mg tablet 1 mg PO DAILY 06/16/23 11/29/23 History lidocaine 4 % topical patch 1 patch topical DAILY PRN NECK PAIN 06/16/23 11/29/23 History (Salonpas (lidocaine)) menthol 0.44 %-zinc oxide 20.6 % 1 applic topical DIRECTED PRN 06/16/23 11/29/23 History topical ointment (Calmoseptine) WOUND CARE NEEDED citalopram 20 mg tablet 20 mg PO HS #90 tabs 11/17/23 11/29/23 Rx entacapone 200 mg tablet 200 mg PO TID #270 tabs 11/17/23 11/29/23 Rx cholecalciferol (vitamin D3) 125 125 mcg PO DAILY 11/29/23 11/29/23 History mcg (5,000 unit) tablet (Vitamin D3) propylene glycol 1 %-glycerin 0.3 1 drp ophthalmic (eye) DAILY PRN 11/29/23 11/29/23 History % eye drops Dry Eye(S) tamsulosin 0.4 mg capsule 0.4 mg PO HS 11/29/23 11/29/23 History Patient History Medical History BPH (benign prostatic hyperplasia) Anxiety On home oxygen therapy 2l cont. Hard of hearing History of kidney stones History of skin cancer AND REMOVED Surgical History History of tooth extraction History of anesthesia reaction WAS SENT TO [facility] FOR 3 DAYS TO "RECOVER MY MIND ABILITIES TO HANDLE THINGS" - FOLLOWING BACK SURGERY/DAFNE KUNZ ABOUT 7 YRS AGO History of total left knee replacement History of total right knee replacement History of lithotripsy History of back surgery History of hip replacement RIGHT AND LEFT Family History Unknown Cancer Father Prostate cancer Mother No problems noted. Other No family history of adverse response to anesthesia No family history of bleeding disorder Social History Smoking Status: Never smoker Second Hand Exposure: No; Do You Dip or Chew Tobacco: No; Hx Alcohol Use: No Hx Substance Use: No Preferred Language: [place] Communication Ability: Effective Communication Ability Comment: [facility] Manufacturing Management Associate Required: No Beliefs That Will Affect Care: None marital status: Current Living Situation: Spouse and Personal Care Facility current occupational status: retired How many Children do You have: 4 Other Information That Helps Us Care for You: No Feels Safe at Home: Yes Safety Concerns: Feels Safe At This Time Assistive Devices: Oxygen - Continuous and Walker Review of Systems Review of Systems: All systems reviewed & are unremarkable except as noted in Subjective Physical Exam Physical Exam: Elderly male, chronically ill-appearing, seated in recliner chair at bedside. Bitemporal wasting noted. PERRLA, EOMI's Neck supple, no stridor Dentition fair, mucosa slightly dry Significant shortness of breath with minimal conversation/+ conversational dyspnea Use of accessory muscles noted Abdominal breathing noted Voice at times is hoarse Breath sounds are diminished with crackles throughout, occasional creaking, no wheezing S1-S2, + tachycardic Abdomen soft, bowel signs present Moving all extremities with global generalized weakness. Ship Laborer intact bilaterally. Strength diminished at bilateral upper and lower extremities. Skin is pale but warm to touch. Nailbeds faintly blue, spooning noted Awake alert oriented x 3 Slightly anxious Cooperative with exam. Results & Data Vital Signs (Past 12 Hours) Vital Signs Temp Pulse Resp BP Pulse Ox O2 Del Method O2 Flow Rate 06/21/24 13:18 Nasal Cannula 3 12/01/23 10:35 36.5 C 76 20 100/58 L 96 Nasal Cannula 2 12/01/23 07:47 36.4 C L 85 21 93/54 L 90 Nasal Cannula 2 Laboratory Results 12/01/23 11/30/23 11/30/23 Range/Units 05:29 Unknown 05:28 WBC 6.14 6.78 (4.8-10.8) K/ul RBC 2.15 L 2.05 L (4.70-6.10) M/uL Hgb 8.4 L 7.9 L (14.0-18.0) g/dl Hct 25.1 L 23.5 L (42.0-52.0) % MCV 116.7 H 114.6 H (80.0-100.0) fL MCH 39.1 H 38.5 H (25.0-34.0) pg MCHC 33.5 33.6 (32.0-36.0) g/dL RDW Std Deviation 61.1 H 58.4 H (36.4-46.3) fL RDW Coeff of Clif[place] 14.1 13.9 (11.5-14.5) % Plt Count 67 L 64 L (130-400) K/uL MPV 11.6 11.3 (9.4-12.4) fL Immature Gran % (Auto) % Neut % (Auto) % Lymph % (Auto) % [place] % (Auto) % Eos % (Auto) % Baso % (Auto) % Neut # (Auto) (1.40-6.50) K/uL Lymph # (Auto) (1.20-3.40) K/uL [place] # (Auto) (0.11-0.59) K/uL Eos # (Auto) (0.00-0.50) K/uL Baso # (Auto) (0.00-0.20) K/uL Immature Gran # (Auto) (0.01-0.20) K/uL Platelet Estimate (Normal) RBC Morphology PT INR APTT PTT Ratio VBG pH (7.36-7.41) VBG pCO2 (38-50) mmHg VBG pO2 mmHg VBG HCO3 mmol/L VBG O2 Saturation % VBG Base Excess mEq/L Sodium 137 136 (136-145) mmol/L Potassium 3.7 4.1 (3.5-5.1) mmol/L Chloride 100 99 (98-107) mmol/L Carbon Dioxide 33 H 32 (21-32) mmol/L Anion Gap 4 5 (3-11) BUN 38 H 39 H (6-23) mg/dl Creatinine 1.04 1.24 (0.6-1.4) mg/dl Est Cr Clr Drug Dosing 49.9 41.9 ml/min Est GFR ( Amer) 73.4 59.4 ml/min Est GFR (Non-Af Amer) 63.4 51.2 ml/min BUN/Creatinine Ratio 36.5 H 31.5 H (10-20) Glucose 107 H 168 H (70-99(Fasting)) mg/dl Lactate (0.4-2.0) mmol/L Calcium 9.1 8.9 (8.6-10.3) mg/dl Magnesium (1.7-2.4) mg/dl Total Bilirubin (0.2-1.0) mg/dl Direct Bilirubin (0-0.2) mg/dl AST (13-39) U/L ALT (7-52) U/L Alkaline Phosphatase (34-104) U/L Troponin I High Sens 1107.3 H* (0-20) pg/ml B-Natriuretic Peptide (0-100) pg/ml Total Protein (6.0-8.3) gm/dl Albumin (3.4-5.0) gm/dl Vitamin B12 400 (180-914) pg/ml Procalcitonin (0-0.5) ng/ml Urine Color Urine Appearance (Clear) Urine pH (4.5-7.5) Ur Specific [place] (1.000-1.030) Urine Protein (Negative) Urine Glucose (UA) (Negative) Urine Ketones (Negative) Urine Blood (Negative) Urine Nitrite (Negative) Urine Bilirubin (Negative) Urine Urobilinogen (Negative) Ur Leukocyte Esterase (Negative) Nasal Screen MRSA (PCR) Negative (Negative) Adenovirus (PCR) (NotDetected) B. pertussis DNA (PCR) (NotDetected) B.parapertussis DNA PCR (NotDetected) C. pneumoniae DNA (PCR) (NotDetected) Coronavirus OC43 (PCR) (NotDetected) Coronavirus HKU1 (PCR) (NotDetected) Coronavirus 229E (PCR) (NotDetected) SARS-CoV-2 (PCR) (NotDetected) Coronavirus NL63 (PCR) (NotDetected) Human Metapneumovir PCR (NotDetected) Influenza Type A (PCR) (NotDetected) Influenza Type B (PCR) (NotDetected) M. pneumoniae (PCR) (NotDetected) Parainfluenza 1 (PCR) (NotDetected) Parainfluenza 2 (PCR) (NotDetected) Parainfluenza 3 (PCR) (NotDetected) Parainfluenza 4 (PCR) (NotDetected) RSV (PCR) (NotDetected) Entero/Rhino (PCR) (NotDetected) 11/29/23 11/29/23 11/29/23 Range/Units 22:41 19:00 17:23 WBC (4.8-10.8) K/ul RBC (4.70-6.10) M/uL Hgb (14.0-18.0) g/dl Hct (42.0-52.0) % MCV (80.0-100.0) fL MCH (25.0-34.0) pg MCHC (32.0-36.0) g/dL RDW Std Deviation (36.4-46.3) fL RDW Coeff of Clifton (11.5-14.5) % Plt Count (130-400) K/uL MPV (9.4-12.4) fL Immature Gran % (Auto) % Neut % (Auto) % Lymph % (Auto) % [place] % (Auto) % Eos % (Auto) % Baso % (Auto) % Neut # (Auto) (1.40-6.50) K/uL Lymph # (Auto) (1.20-3.40) K/uL [place] # (Auto) (0.11-0.59) K/uL Eos # (Auto) (0.00-0.50) K/uL Baso # (Auto) (0.00-0.20) K/uL Immature Gran # (Auto) (0.01-0.20) K/uL Platelet Estimate (Normal) RBC Morphology PT 13.0 H INR 1.2 H APTT 31 PTT Ratio 1.2 VBG pH (7.36-7.41) VBG pCO2 (38-50) mmHg VBG pO2 mmHg VBG HCO3 mmol/L VBG O2 Saturation % VBG Base Excess mEq/L Sodium (136-145) mmol/L Potassium (3.5-5.1) mmol/L Chloride (98-107) mmol/L Carbon Dioxide (21-32) mmol/L Anion Gap (3-11) BUN (6-23) mg/dl Creatinine (0.6-1.4) mg/dl Est Cr Clr Drug Dosing ml/min Est GFR ( Amer) ml/min Est GFR (Non-Af Amer) ml/min BUN/Creatinine Ratio (10-20) Glucose (70-99(Fasting)) mg/dl Lactate 1.9 (0.4-2.0) mmol/L Calcium (8.6-10.3) mg/dl Magnesium (1.7-2.4) mg/dl Total Bilirubin (0.2-1.0) mg/dl Direct Bilirubin (0-0.2) mg/dl AST (13-39) U/L ALT (7-52) U/L Alkaline Phosphatase (34-104) U/L Troponin I High Sens 1374.5 H* D 1966.7 H* (0-20) pg/ml B-Natriuretic Peptide (0-100) pg/ml Total Protein (6.0-8.3) gm/dl Albumin (3.4-5.0) gm/dl Vitamin B12 (180-914) pg/ml Procalcitonin (0-0.5) ng/ml Urine Color Yellow Urine Appearance Clear (Clear) Urine pH 5.5 (4.5-7.5) Ur Specific [place] 1.011 (1.000-1.030) Urine Protein Negative (Negative) Urine Glucose (UA) Negative (Negative) Urine Ketones Negative (Negative) Urine Blood Negative (Negative) Urine Nitrite Negative (Negative) Urine Bilirubin Negative (Negative) Urine Urobilinogen Negative (Negative) Ur Leukocyte Esterase Negative (Negative) Nasal Screen MRSA (PCR) (Negative) Adenovirus (PCR) (NotDetected) B. pertussis DNA (PCR) (NotDetected) B.parapertussis DNA PCR (NotDetected) C. pneumoniae DNA (PCR) (NotDetected) Coronavirus OC43 (PCR) (NotDetected) Coronavirus HKU1 (PCR) (NotDetected) Coronavirus 229E (PCR) (NotDetected) SARS-CoV-2 (PCR) (NotDetected) Coronavirus NL63 (PCR) (NotDetected) Human Metapneumovir PCR (NotDetected) Influenza Type A (PCR) (NotDetected) Influenza Type B (PCR) (NotDetected) M. pneumoniae (PCR) (NotDetected) Parainfluenza 1 (PCR) (NotDetected) Parainfluenza 2 (PCR) (NotDetected) Parainfluenza 3 (PCR) (NotDetected) Parainfluenza 4 (PCR) (NotDetected) RSV (PCR) (NotDetected) Entero/Rhino (PCR) (NotDetected) 11/29/23 11/29/23 11/29/23 Range/Units 15:25 15:00 14:52 WBC 13.17 H (4.8-10.8) K/ul RBC 2.33 L (4.70-6.10) M/uL Hgb 9.0 L (14.0-18.0) g/dl Hct 27.5 L (42.0-52.0) % MCV 118.0 H (80.0-100.0) fL MCH 38.6 H (25.0-34.0) pg MCHC 32.7 (32.0-36.0) g/dL RDW Std Deviation 62.6 H (36.4-46.3) fL RDW Coeff of Clif[place] 14.4 (11.5-14.5) % Plt Count 87 L (130-400) K/uL MPV 10.8 (9.4-12.4) fL Immature Gran % (Auto) 0.9 % Neut % (Auto) 83.6 % Lymph % (Auto) 10.4 % [place] % (Auto) 4.4 % Eos % (Auto) 0.5 % Baso % (Auto) 0.2 % Neut # (Auto) 11.00 H (1.40-6.50) K/uL Lymph # (Auto) 1.37 (1.20-3.40) K/uL [place] # (Auto) 0.58 (0.11-0.59) K/uL Eos # (Auto) 0.07 (0.00-0.50) K/uL Baso # (Auto) 0.03 (0.00-0.20) K/uL Immature Gran # (Auto) 0.12 (0.01-0.20) K/uL Platelet Estimate Decreased L (Normal) RBC Morphology Unremarkable PT Cancelled INR Cancelled APTT Cancelled PTT Ratio Cancelled VBG pH 7.34 L (7.36-7.41) VBG pCO2 56 H (38-50) mmHg VBG pO2 35 mmHg VBG HCO3 30 mmol/L VBG O2 Saturation < 60.0 % VBG Base Excess 3.1 mEq/L Sodium 137 (136-145) mmol/L Potassium 4.3 (3.5-5.1) mmol/L Chloride 102 (98-107) mmol/L Carbon Dioxide 31 (21-32) mmol/L Anion Gap 4 (3-11) BUN 39 H (6-23) mg/dl Creatinine 1.29 (0.6-1.4) mg/dl Est Cr Clr Drug Dosing 42.6 ml/min Est GFR ( Amer) 56.6 ml/min Est GFR (Non-Af Amer) 48.8 ml/min BUN/Creatinine Ratio 30.2 H (10-20) Glucose 132 H (70-99(Fasting)) mg/dl Lactate 2.5 H* (0.4-2.0) mmol/L Calcium 9.6 (8.6-10.3) mg/dl Magnesium 2.0 (1.7-2.4) mg/dl Total Bilirubin 0.7 (0.2-1.0) mg/dl Direct Bilirubin 0.1 (0-0.2) mg/dl AST 42 H (13-39) U/L ALT 8 (7-52) U/L Alkaline Phosphatase 65 (34-104) U/L Troponin I High Sens 2408.5 H* (0-20) pg/ml B-Natriuretic Peptide 603 H (0-100) pg/ml Total Protein 7.7 (6.0-8.3) gm/dl Albumin 3.7 (3.4-5.0) gm/dl Vitamin B12 (180-914) pg/ml Procalcitonin 23.30 H (0-0.5) ng/ml Urine Color Urine Appearance (Clear) Urine pH (4.5-7.5) Ur Specific [place] (1.000-1.030) Urine Protein (Negative) Urine Glucose (UA) (Negative) Urine Ketones (Negative) Urine Blood (Negative) Urine Nitrite (Negative) Urine Bilirubin (Negative) Urine Urobilinogen (Negative) Ur Leukocyte Esterase (Negative) Nasal Screen MRSA (PCR) (Negative) Adenovirus (PCR) Not Detected (NotDetected) B. pertussis DNA (PCR) Not Detected (NotDetected) B.parapertussis DNA PCR Not Detected (NotDetected) C. pneumoniae DNA (PCR) Not Detected (NotDetected) Coronavirus OC43 (PCR) Not Detected (NotDetected) Coronavirus HKU1 (PCR) Not Detected (NotDetected) Coronavirus 229E (PCR) Not Detected (NotDetected) SARS-CoV-2 (PCR) Not Detected (NotDetected) Coronavirus NL63 (PCR) Not Detected (NotDetected) Human Metapneumovir PCR Not Detected (NotDetected) Influenza Type A (PCR) Not Detected (NotDetected) Influenza Type B (PCR) Not Detected (NotDetected) M. pneumoniae (PCR) Not Detected (NotDetected) Parainfluenza 1 (PCR) Not Detected (NotDetected) Parainfluenza 2 (PCR) Not Detected (NotDetected) Parainfluenza 3 (PCR) Not Detected (NotDetected) Parainfluenza 4 (PCR) Not Detected (NotDetected) RSV (PCR) Not Detected (NotDetected) Entero/Rhino (PCR) Not Detected (NotDetected) Diagnostic Findings Chest X-Ray 11/29/23 14:50 SINGLE VIEW CHEST CLINICAL HISTORY: Sepsis FINDINGS: An AP, portable, upright chest radiograph is compared to study dated 04/12/2021 and correlated with chest CT dated 03/26/2021. The heart is enlarged noting atherosclerotic calcification of the thoracic artery. There is pulmonary vascular congestion. Airspace opacities are seen throughout both lungs. Chronic fibrotic change is similar to previous. No large pleural effusion or pneum othorax is seen. The skeletal structures are osteopenic. The bony thorax is grossly intact. Degenerative change is noted in the shoulders and spine. IMPRESSION: 1. Cardiomegaly with pulmonary vascular congestion. 2. Bilateral airspace opacities likely represent pulmonary edema. Correlate clinically for evidence of a superimposed infectious/inflammatory pneumonitis. Radiographic follow-up to resolution is recommended. 3. Findings of chronic/fibrotic lung disease are likely similar to previous.. ACT 112: Negative or not required by law. Electronically signed by: Gilberto Minor M.D. 11/29/2023 3:[address] 11/29/23 14:56 CT cervical spine wo con CLINICAL HISTORY: fall TECHNIQUE: Multidetector row helical CT of the cervical spine was performed without administration of intravenous contrast. Coronal and sagittal reformations were obtained. Automated dose lowering techniques and/or adjustment according to patient size were utilized for this exam. Comparison: Comparison is made to CT cervical spine 02/26/2016 FINDINGS: No acute fractures or subluxations are identified. Degenerative changes are seen in the visualized spine. The alignment is normal. Biapical scarring is seen in the lungs. IMPRESSION: Degenerative changes without evidence of acute bony injury. ACT 112: Negative or not required by law. Electronically signed by: Jose Manzanares M.D. 11/29/2023 4:[address] 11/29/23 14:56 CT SCAN OF THE BRAIN WITHOUT IV CONTRAST CLINICAL HISTORY: Fall. COMPARISON STUDY: CT of the brain dated 04/12/2021. TECHNIQUE: Unenhanced axial CT scan of the brain is performed from the vertex to the skull base. A dose lowering technique was utilized adhering to the principles of ALARA. CT DOSE: 1088.84 mGy.cm FINDINGS: Brain parenchyma: There is age-related involutional change noting advanced confluent subcortical and periventricular microangiopathic disease. There is no hemorrhage, mass effect, or evidence of acute territorial ischemia by CT criteria. Garland-white matter differentiation is preserved. No extra-axial fluid collection is seen. Ventricles, sulci, cisterns: Prominent secondary to involutional change. Intracranial vasculature: There is atherosclerotic calcification of the cavernous carotid and vertebral arteries. Calvarium: The skeletal structures are osteopenic. No depressed calvarial fracture is seen. Sinuses and mastoids: There is mild mucosal thickening in the left maxillary antrum. The remaining visualized paranasal sinuses are clear. The mastoid air cells are well pneumatized. Orbits: The bony orbits are grossly intact. There are bilateral ocular lens implants. IMPRESSION: There is no hemorrhage, mass effect, or evidence of acute territorial ischemia by CT criteria. ACT 112: Negative or not required by law. Electronically signed by: Gilberto Minor M.D. 11/29/2023 4:[address] 11/30/23 14:18 CT SCAN OF THE CHEST WITHOUT IV CONTRAST CLINICAL HISTORY: Sepsis. Dyspnea. COMPARISON STUDY: Chest CT dated 03/26/2021. Chest x-ray dated 11/29/2023. TECHNIQUE: CT scan of the thorax was performed from the thoracic inlet to the upper abdomen. Images are reviewed in the axial, sagittal, and coronal planes. IV contrast was not administered for this examination as per the referring clinician. A dose lowering technique was utilized adhering to the principles of ALARA. The examination is degraded by motion artifact, as well as by streak artifact from the arms which could not be a little above the chest. CT DOSE: 516.44 mGy.cm FINDINGS: Thyroid: Imaged portions of the thyroid gland are normal in size and attenuation. Thoracic aorta: The thoracic aorta is normal in caliber and demonstrates standard 3-vessel arch anatomy. Heart: The heart is enlarged and without pericardial effusion. The coronary arteries are densely calcified. Lungs and pleural spaces: Evaluation of the lung parenchyma is significantly compromised by motion artifact. There is edematous change is suspected. The trachea and central airways are grossly clear. Changes of chronic inters titial/fibrotic lung disease are again noted with a lower lobe predominance. There is architectural distortion and bilateral lower lobe bronchiectasis. There are increased airspace opacities at both lung bases as compared to 202. Scattered calcified granulomas are observed. Mediastinum: There are numerous mildly enlarged mediastinal lymph nodes which measure up to 11 mm short axis. Soledad: Not well assessed without IV contrast. Axillae: There is no axillary lymphadenopathy. Upper abdomen: There is a small hiatal hernia. Diverticula are noted in the partially imaged left colon. Skeletal structures: The skeletal structures are osteopenic. Degenerative change is noted in the shoulders and spine. Arthritic change in also seen at the left sternoclavicular joint. No lytic or blastic bony lesions are seen. IMPRESSION: 1. Streak and motion compromised examination. 2. Cardiomegaly noting advanced coronary artery atherosclerosis. 3. Again seen are changes of chronic interstitial/fibrotic lung disease as above, likely with superimposed emphysema. 4. There are increasing bibasilar airspace opacities as compared to the 03/26/2021 examination. This could represent changes of progressive chronic lung disease, a superimposed infectious/inflammatory pneumonitis, and/or mild pulmonary edema. Clinical correlation will be essential. Radiographic follow-up is advised. 5. Mildly enlarged mediastinal lymph nodes are nonspecific and likely related to chronic lung disease. 6. Additional findings as above. ACT 112: Negative or not required by law. Electronically signed by: Gilberto Minor M.D. 11/30/2023 7:18 PM Videofluoroscopic Swallow 12/01/23 11:00 VIDEO SWALLOW STUDY CLINICAL HISTORY: Aspiration. COMPARISON STUDY: Video swallow study dated 03/29/2021. Fluoroscopy time: 1.4 minutes. Ka,r: 11.7 mGy FINDINGS: Fluoroscopic guidance is provided to the Department of speech pathology in performing a video swallow study. The patient consumed barium- impregnated nectar-thick liquids, pudding, cracker with paste, and thin barium while the swallowing mechanism was observed in real-time. Silent aspiration was seen with thin barium. No penetration or aspiration was seen with any of the additional sample textures. IMPRESSION: 1. Silent aspiration was seen with thin barium. 2. No penetration or aspiration was seen with any of the additional sampled textures. 3. See dedicated speech pathology report for detailed findings and recommendations. Dictated: 12/01/2023 1:19 PM Transcribed: 12/01/2023 1:25 PM Ricky [id number] [email or web address] Electronically signed by: Gilberto Minor M.D. 12/01/2023 1:38 PM PG Care Time/CCT Total # of Minutes Spent Total Time Spent with Patient: Total time spent is greater than 50% in coordination of care (as documented) at patient's floor/unit and/or counseling patient: I spent 125 minutes overall addressing this case: 15 min in medical data review/discussion with referring provider(s) and/or preparation for the visit 25 min in direct interaction with the patient/exam 60 min in Advance Care Planning/Goals of Care discussions as detailed above in note (must be >16min) 15 min in subsequent review and synthesis of assessment and plan 10 min communicating with other providers regarding the tia dumont's case: Advanced Care Planning 99420 Advanced Care Planning 30 Min 39334 Advanced Care Planning Additional 30 [place] [address] IN/OBS CONSULT LVL 5,80M (25 - SIGNIFICANT, SEPARATELY IDENTIFIABLE ) Patient Type New Medical Decision Making High Complexity Diagnoses Dyspnea and respiratory abnormalities R06.00; R06.89 Weakness generalized R53.1 Air hunger R09.89 Advanced care planning/counseling discussion Z71.89 Encounter for hospice care discussion Z71.89 Palliative care by specialist Z51.5 Additional Codes Advanced Care Planning - 27460 Advanced Care Planning Additional 30 Min: 76092 Advanced Care Planning Additional 30 Min ([id number]) Advanced Care Planning - 40803 Advanced Care Planning 30 Min: 68319 Advanced Care Planning 30 Min ([id number])
[2023-12-02 07:00] LABS: Albumin Globulin Ratio 0.9 (0.9-2); Albumin Level 2.9 gm/dl (3.4-5.0); BUN Creatinine Ratio 34.1 (10-20); Bilirubin,Total 0.5 mg/dl (0.2-1.0); Est GFR (African American) 86.3 ml/min; Est GFR (Non-African American) 74.5 ml/min; Globulin 3.2 gm/dl (2.5-4.0); Potassium 3.7 mmol/L (3.5-5.1); Total Protein 6.1 gm/dl (6.0-8.3)
[2023-12-02 07:26] LABS: Basophils # (auto) 0.03 K/uL (0.00-0.20); Basophils % (auto) 0.7 %; Eosinophils # (auto) 0.14 K/uL (0.00-0.50); Eosinophils % (auto) 3.2 %; Hematocrit (blood only) 24.1 % (42.0-52.0); Hemoglobin 7.9 g/dl (14.0-18.0); Immature Granulocytes # (auto) 0.06 K/uL (0.01-0.20); Immature Granulocytes % (auto) 1.4 %; Lymphocytes # (auto) 0.85 K/uL (1.20-3.40); Lymphocytes % (auto) 19.7 %; Macrocytosis Present; Mean Corpuscular Hemoglobin 38.5 pg (25.0-34.0); Mean Corpuscular Hgb Conc 32.8 g/dL (32.0-36.0); Mean Corpuscular Volume 117.6 fL (80.0-100.0); Mean Platelet Volume 11.7 fL (9.4-12.4); Monocytes % (auto) 6.9 %; Neutrophils # (auto) 2.94 K/uL (1.40-6.50); Neutrophils % (auto) 68.1 %; Platelet Count 73 K/uL (130-400); Polychromasia 1+; RDW Coefficient of Variation 14.2 % (11.5-14.5); RDW Standard Deviation 61.1 fL (36.4-46.3); Red Blood Count 2.05 M/uL (4.70-6.10); White Blood Count 4.32 K/ul (4.8-10.8)
--- NOTE | 2023-12-02 07:43 | Pulmonology Progress Note ---
Date of Service December 02, 2023 Assessment & Plan (1) Interstitial lung disease: Plan Impression: 88-year-old with interstitial lung disease and chronic hypoxemic respiratory failure, likely IPF. He is elected to pursue a conservative approach without therapy was admitted to the hospital with hypoxemia which is likely multifactorial due to combinations of mild pulmonary edema, ILD, and potential infectious etiologies. Patient is clinically improved but wants to avoid returning to the hospital and plans were being made to discharge him home with hospice Recommendations: 1. Abnormal CT scan: Likely multifactorial due to combinations of the patient's interstitial lung disease, mild fluid overload, and potential infectious lower respiratory process. See comments below. No indication for follow-up imaging 2. Interstitial lung disease: Please refer to my prior clinical notes. Patient will likely undergo progression. We discussed previously palliative care/hospice which she was open to. Would recommend reengaging palliative care at this point in time. The patient expressed an interest to not be transferred back and forth between his assisted living center in the hospital. 3. With regards to potential infectious etiology/pneumonia, recommend completing course of oral antibiotics. Would complete a 5-day course of antimicrobial therapy. Procalcitonin pending this morning 4. Hypoxemia: Continue supplemental oxygen titrated to keep saturations at or above 89%. Recommend getting patient out of bed to chair and ambulating. Discontinuation of urinary catheter recommended Plan to discharge home with hospice. I would be happy to see him back in pulmonary clinic if needed but at this point in time I think a palliative approach certainly appears reasonable. Pulmonary will sign off. Feel free to contact us with questions or concerns Admission and Anticipated Discharge Date Admission Date: November 29, 2023 Subjective Patient seen and examined. EMR reviewed. The patient states his breathing is improved. He has met with palliative care and plans are to discharge him home with hospice. He is very comfortable with this decision and does not desire further care. Review of Systems 2 Review of Systems: All systems reviewed & are unremarkable except as noted in Subjective Physical Exam 2 Constitutional: WD/WN, vitals as above Ambulates with the assistance of a walker Neck: trachea midline, no thyromegaly Respiratory: + labored breathing and + tachypneic; no respiratory distress Auscultation: + rales; no wheezes Cardiovascular: RRR, no murmur, no edema Gastrointestinal (Abdomen): normal bowel sounds, soft, nontender, no hepatosplenomegaly Musculoskeletal: Extremities: extremities normal to inspection Skin: no rashes, warm and dry Lymphatic: no cervical lymphadenopathy Results & Data Results & Data Vital Signs (Past 12 Hours) Vital Signs Temp Pulse Pulse Resp BP Pulse Ox O2 Del Method 12/02/23 04:24 36.6 C 75 18 101/57 L 98 Nasal Cannula 12/01/23 23:48 75 12/01/23 20:47 Nasal Cannula O2 Flow Rate 12/02/23 04:24 3 12/01/23 23:48 12/01/23 20:47 3 Laboratory Results 12/02/23 05:43 12/02/23 05:43 PG Care Time/CCT Total # of Minutes Spent Total Time Spent with Patient: Total time spent is greater than 50% in coordination of care (as documented) at patient's floor/unit and/or counseling patient: Coding Level of Care Code 36238 SUB INP/OBS CARE 2/35MIN Diagnoses Interstitial lung disease J84.9
--- NOTE | 2023-12-02 13:26 | Discharge Summary ---
Date of Service December 02, 2023 Admission HPI Per Admitting Provider This is an 88-year-old male from [facility] with PMH of chronic interstitial lung disease on 2-3 L nasal cannula at baseline, Parkinson's disease, BPH, thrombocytopenia, anxiety and other medical problems listed below presents from home with worsening shortness of breath. Endorses dry cough, SOB and congestion x 2 days. Shortness of breath worsened when lying flat. Denies known aspiration. Has to eat food cut up due to underlying Parkinson's. Denies any hemoptysis. Does report a fall yesterday when he lost his balance and fell back on rug. No chest pain. Denies head trauma or LOC. No F/C, headache, palpi tations, N/V, abd pain, dysuria, diarrhea. + chronic constipation. Most recent echo from March 2021 with EF 55 to 60%, normal left wall motion, grade 1 diastolic dysfunction. Per discussion with daughter Megan (CAROLYN) over the phone- patient is on a pured diet with nectar thick liquids. Concern for aspirating although [facility] recently transitioned liquids to nectar thick. Has also started to give him Ensure since appetite was decreased. Is a DNR/DNI per [facility]. Admission Exam Per Admitting Provider General Appearance:Moderately built and nourished, no apparent distress Head: normocephalic, Atraumatic Eyes: normal inspection, EOMI Neck: supple, Trachea midline Respiratory/Chest: Decreased breath sounds, bilateral basal crackles, No accessory muscle use Cardiovascular: S1, S2, No murmur Abdomen/GI:Soft, Non tender, Bowel sounds present Extremities/Musculoskeletal:normal inspection, trace pedal edema Neurologic/Psych:AAOX3, grossly no focal neurological deficits , + hearing impairment Skin: normal color, warm Principal Diagnosis Pneumonia Interstitial lung disease Discharge Exam Constitutional: Awake, alert oriented x 3; hard of hearing. Respiratory: Bilateral crackles present. Cardiovascular: RRR, no murmur, no edema Vessels: no JVD or carotid bruit Chest: normal inspection of chest Abdomen: Soft, nontender. Musculoskeletal: no cyanosis or clubbing, extremities motor strength 5/5 Skin: no rashes, warm and dry normal turgor Neurologic: PERRL, EOMI, accommodation nl, no face palsy, no dysarthria CN's II- XI intact bilaterally and moves all extremities Psychiatric: A+Ox3, euthymic affect Discharge Data Allergies Allergy/AdvReac Type Severity Reaction Status Date / Time bacitracin Allergy Mild SWELLING Verified 11/29/23 15:51 neomycin Allergy Mild SWELLING Verified 11/29/23 15:51 polymyxin B Allergy Mild SWELLING Verified 11/29/23 15:51 Penicillins Allergy Unknown ON [facility] Verified 11/29/23 15:51 [facility] fentanyl AdvReac Mild PASSED OUT Verified 11/29/23 15:51 Consultations 11/29/23 16:55 ED Decision to Admit Stat 11/30/23 07:33 Consult Cardiology Routine 12/01/23 07:38 Consult Pulmonology Routine Ordered Studies 11/29/23 14:56 CT cervical spine wo con Stat CT head/brain wo con Stat 11/30/23 14:18 CT chest diagnostic wo con Routine 12/01/23 11:00 Fluoro video [FL video swallow] Routine Hospital Course (1) Acute on chronic hypoxic respiratory failure: (2) Sepsis: (3) Pneumonia: (4) Interstitial lung disease: (5) Parkinson disease: (6) Hypertension: (7) Mood disorder: (8) BPH (benign prostatic hyperplasia): Plan This is an 88-year-old male from [facility] with PMH of chronic interstitial lung disease on 2-3 L nasal cannula at baseline, Parkinson's disease, BPH, thrombocytopenia, anxiety and other medical problems listed below presents with worsening shortness of breath. Sepsis, POA Pneumonia Acute on chronic hypoxic respiratory failure Acute on chronic diastolic heart failure Patient presented to the hospital with worsening shortness of breath. On presentation;RR 28, HR initially 119, temp 37.7, WBC 13 K, Pro-Garcia 23, lactate 2.5 -> 1.9 after fluids Respiratory viral panel negative CXR on admission with cardiomegaly with pulmonary vascular congestion. Bilateral airspace opacities likely represent pulmonary edema. BNP elevated CT chest without contrast obtained; increasing bibasilar airspace opacities compared to CT scan obtained in March 2021; possible progressive chronic lung disease, superimposed infectious pneumonitis or mild pulmonary edema. During the hospitalization, Patient was initially treated with IV Zosyn and doxycycline; switched over to p.o. antibiotics as per pulmonology. Discussion of goals of care was done with patient's CAROLYN Guzman over the phone. She is a paralegals. I have updated her regarding his hospitalization and findings in the CT chest and impression by pulmonology. She acknowledges that patient does not want aggressive intervention and does not like being back and forth to the hospital. I discussed possible discharge at rehab and starting hospice care there. She will have to discuss with her mom and patient regarding it and will follow-up on it after patient is stable for discharge. Video swallow was done; silent aspiration was noted. Recommended to be on pured diet and mildly thick liquid Patient was at baseline oxygen requirement at discharge. Demand ischemia High sensitive troponin on admission of 2408; down trended to 1107 EKG on admission shows normal sinus rhythm; RBBB ;nonspecific T wave changes Echocardiogram shows EF of 55 to 60% with grade 2 diastolic dysfunction. Cardiology on board; troponin elevation likely due to sepsis/pneumonia. No anticoagulation given history of thrombocytopenia and anemia Thrombocytopenia Macrocytic Anemia History of macrocytic anemia along with thrombocytopenia for several years. Hemoglobin and platelets are lower than baseline Vitamin B12 within normal limits I updated the findings with patient's POA over the phone. No further workup regarding thrombocytopenia and macrocytic anemia as goals of care are focused on comfort measures. Please note the above document was generated using voice recognition software. It may contain grammatical, syntax or spelling errors. Any formal questions or concerns about the content, text or information contained within the body of this dictation should be directly addressed to the provider for clarification Total Time Total Time Spent Total Time Spent (In Minutes): 45 Total Time Includes: Examination of the Patient, Discharge Planning, Medication Reconciliation, Communication With Other Providers and Other Discharge Plan Discharge Items Patient Disposition: Personal Halfway Reason For Visit: ACUTE ON CHRONIC HYPOXIC RESPF FAILURE, PNA Discharge Diagnosis: Sepsis, POA Pneumonia Acute on chronic hypoxic respiratory failure Acute on chronic diastolic heart failure Activity: Resume your previous activity Non-emergency contact: Primary Care Provider Call non-emergency contact if: you have any medication questions and your sympt oms worsen Follow-up/Referrals: Ольга Marti MD [Primary Care Provider] - Diet: Regular Diet Texture: Pureed (blended smooth) Liquid Consistency: [place] thick Addtl Attending Provider Instructions: You were admitted to the hospital due to low oxygen level. You were evaluated by cardiology and pulmonology during the hospitalization. The likely cause for the low oxygen level is multifactorial which includes progression of interstitial lung disease, pneumonia and mild lung congestion. You are prescribed 5 more days of antibiotic to complete the antibiotic course for pneumonia. Please follow-up with your primary care doctor next week Pending Studies at Discharge: No Stand-Alone Forms: My Zumper, Smoking Cessation Skilled Items Patient informed of condition?: No DNR: Yes Discharge Level of Care: Other Communicable Disease: No Discharge Prognosis: Stable Lines: None Urinary Catheter: No Medications and DC Order Prescriptions: New doxycycline hyclate 100 mg Capsule 100 mg PO BID 5 Days Qty: 10 0RF cefuroxime axetil 500 mg Tablet 500 mg PO BID 5 Days Qty: 10 0RF Continued pramipexole 0.125 mg tablet 0.125 mg PO TID Qty: 270 3RF Rx Instructions: TAKE 1 TABLET BY MOUTH THREE TIMES DAILY carbidopa-levodopa 50-200 mg tablet extended release 1 tab PO TID Qty: 270 3RF Rx Instructions: TAKE 1 TABLET BY MOUTH 3 TIMES DAILY gabapentin 300 mg capsule 300 mg PO HS 30 Days Qty: 90 3RF citalopram 20 mg tablet 20 mg PO HS Qty: 90 0RF entacapone 200 mg tablet 200 mg PO TID Qty: 270 0RF Rx Instructions: administer at the same time as levodopa/carbidopa dose lidocaine [Salonpas (lidocaine)] 4 % Adhesive Patch,Medicated 1 patch TOPICAL DAILY PRN (Reason: NECK PAIN) Rx Instructions: APPLY FOR 12 HRS, THEN REMOVE AFTER 12 HRS. folic acid 1 mg Tablet 1 mg PO DAILY menthol-zinc oxide [Calmoseptine] 0.44-20.6 % Ointment 1 applic TOPICAL DIRECTED PRN (Reason: WOUND CARE NEEDED) tamsulosin 0.4 mg capsule 0.4 mg PO HS propylene glycol-glycerin 1-0.3 % Drops 1 drp OPHTHALMIC (EYE) DAILY PRN (Reason: Dry Eye(S)) cholecalciferol (vitamin D3) [Vitamin D3] 125 mcg (5,000 unit) Tablet 125 mcg PO DAILY Discharge Orders: Discharge Order (Routine); Ordered 12/02/23 Ordered By: Benjy Robbins Admission Data Admit Date/Time: 11/29/23 17:24 Attending Provider: Benjy Robbins Admit Provider: Umer Mercer Primary Care Provider: Ольга Marti Other Providers: Umer Mercer; Angélica Pedersen; Minh Pickett; Luiz Merchant; Martin Mujica; Fleiciano Dorsey; Prabhu Shaw; La Sánchez; Fara Smith; Brittney Wolfe; Angélica Roa; Pancho Kennedy; Nehemiah Woodruff; Leena Ojeda; Yenny Galvan; Alice Flores; Sendy uW; Tyrone Shah; Niya Gaming; Chao Bragg; Mike Camargo at [place] Other Interventions: Discharge Summary Assessment (RN) Last Done: 12/02/23 13:56
== END 2023-12-02 15:01 | disposition home or self-care (01) | DRG 871 ==
LOC: ED 14:33 → SUATTDRO 17:24 → 2S 17:24